=== PATIENT | female | born 1970 | race Caucasian/White ===

== ENCOUNTER 2021-06-10 07:00 | Outpatient (REF) | payer OTHER, SELFPAY ==
[2021-06-10 08:08] LABS: MANUAL DIFF FLAG NO
[2021-06-10 08:10] LABS: Basophils Percent Auto 0.4 % (0-2); Eosinophils Absolute Auto 0.2 X10*3/uL (0.0-0.4); Eosinophils Percent Auto 3.3 % (0-4); Hematocrit 44.7 % (37-47); Hemoglobin 15.3 g/dl (12.0-16.0); Imm Gran Abs Auto 0.03 X10*3/uL (0.00-0.03); Imm Gran Pct Auto 0.4 % (0.0-0.4); Lymphocytes Absolute Auto 1.9 X10*3/uL (1.2-4.9); Lymphocytes Percent Auto 25.2 % (20-40); Mean Corpuscular HGB Conc 34.2 g/dl (31.0-35.0); Mean Corpuscular Hemoglobin 34.4 pg (27.0-33.0); Mean Corpuscular Volume 100.4 fL (80-98); Mean Platelet Volume 10.4 fL (9.4-12.3); Monocytes Absolute Auto 0.6 X10*3/uL (0.1-1.2); Neutrophils Absolute Auto 4.6 X10*3/uL (2.0-8.3); Neutrophils Percent Auto 62.7 % (45-73); Platelet Count 190 X10*3/uL (160-400); Red Blood Count 4.45 X10*6/uL (4.20-5.50); Red Cell Distribution Width 13.8 % (11.0-16.0); White Blood Count 7.3 X10*3/uL (4.8-10.8)
[2021-06-10 08:36] LABS: Alanine Aminotransferase 25 U/L (0-31); Albumin Level 4.2 g/dL (3.5-5.0); Alkaline Phosphatase 62 U/L (39-117); Anion Gap 12 (12-20); Aspartate Amino Transferase 16 U/L (5-31); Bilirubin Total 0.3 mg/dL (0.0-1.0); Blood Urea Nitrogen 13 mg/dL (9-16); Carbon Dioxide 23 mmol/L (22-29); Chloride 107 mmol/L (96-108); Cholesterol 180 mg/dL; Estimated Glomerular Filt Rate > 60; Glucose Random 143 mg/dL (60-115); HDL Cholesterol 51 mg/dL; LDL Cholesterol Calculated 106 mg/dl; Potassium 4.1 mmol/L (3.3-5.1); Sodium 138 mmol/L (135-145); Total Protein 6.3 g/dL (6.5-8.0); Triglycerides 119 mg/dL
[2021-06-10 09:07] LABS: Folate 1.8 ng/mL (> or = 4.0); Vitamin B12 508 pg/mL (200-900)
[2021-06-10 09:33] LABS: Free T4 (Free Thyroxine) 0.79 ng/dL (0.71-1.85); Thyroid Stimulating Hormone 1.26 uIU/mL (0.32-4.0)
[2021-06-10 10:13] LABS: Appearance Urine HAZY; Color Urine YELLOW; Glucose Urine UA NEG (NEG); Leukocyte Esterase Urine NEG (NEG); Nitrite Urine NEG (NEG); Specific Gravity - Urine >= 1.030 (1.005-1.025); Urine Blood NEG (NEG); Urine Ketones NEG (NEG); Urine Protein NEG (NEG-TRACE)
[2021-06-10 11:11] LABS: Bacteria Urine TRACE /LPF; Calcium Oxalate Crystals Urine 1+ /LPF; Mucus Urine 1+ /LPF; RBC Urine 0 /HPF (0); Squamous Epithelial Cell Urine 2+ /LPF
== END 2021-06-10 07:01 | disposition home or self-care (01) ==
LOC: HO.LAB 07:00
PROVIDERS: PCP Internal Medicine; Visit Provider Internal Medicine
DX: I10 Essential (primary) hypertension (principal); E78.00 Pure hypercholesterolemia, unspecified
CPT/HCPCS: 36415; 80053; 80061; 81001; 82306; 82607; 82746; 84439; 84443; 85025

== ENCOUNTER 2021-09-12 16:28 | Outpatient (REF) | payer OTHER, SELFPAY ==
--- NOTE | ~2021-09-12 | MM_ITS ---
EXAMINATION: MM SCREENING DIGITAL BREAST TOMOSYNTHESIS, BILATERAL CLINICAL INFORMATION: Screening. Asymptomatic. The lifetime risk of breast cancer based on the Tyrer-Cuzick Model is 24%. COMPARISON: Mammography: 05/13/2019, 03/16/2015 TECHNIQUE: Digital breast tomosynthesis is performed in both the craniocaudal and mediolateral oblique views along with computer-aided detection (CAD). Synthesized 2D images are generated from the tomosynthesis. FINDINGS: The breasts are almost entirely fatty (ACR BI-RADS breast composition Category a). Background stromal markings are stable. There are no significant masses, abnormal calcifications, or other abnormalities. Parenchymal pattern is similar to prior studies. No developing density. There are scattered bilateral round, rim, predominantly dermal calcifications again present. No significant changes. MM/MM tomosynthesis screening BI IMPRESSION: No mammographic evidence of malignancy. ASSESSMENT: BI-RADS 2: Benign RECOMMENDATION: Routine annual mammography screening. This patient's information was entered into a reminder system with a target due date for their next mammogram.
== END 2021-09-12 16:29 | disposition home or self-care (01) ==
LOC: HO.MAMMO 16:28
PROVIDERS: Visit Provider Internal Medicine
DX: Z12.31 Encounter for screening mammogram for malignant neoplasm of breast (principal)
CPT/HCPCS: 77063; 77067

== ENCOUNTER → 2021-10-21 15:11 | Outpatient (BNVA) | payer OTHER, SELFPAY | PROVIDERS: PCP Internal Medicine; Referring Provider Internal Medicine; Visit Provider Physician Assistant ==

== ENCOUNTER 2022-01-15 07:17 | Day surgery (SDC) | payer OTHER, SELFPAY ==
[2022-01-09 12:00] VITALS: BMI 37.4
--- NOTE | 2022-01-15 06:40 | MHC.SHP ---
Pre-Procedural Eval Section A Date of Service: 01/15/22 Section B Chief Complaint: screening Relevant Family History (Specify if Yes): No Relevant Social History: Tobacco Use Present Medications: see Short Stay Collaborative assessment Medical History: Significant History (DDD (degenerative disc disease), lumbar Generalized anxiety disorder Hypertension Migraine Obesity Polycystic ovarian syndrome Sciatica, right side Tobacco abuse Type 2 diabetes mellitus with hyperglycemia) Allergies: Allergies Allergy/AdvReac Type Severity Reaction Status Date / Time lisinopril Allergy Intermediate Rash Verified 01/09/22 11:57 paroxetine [Paxil] AdvReac Intermediate weight gain Verified 01/09/22 11:25 Review of Systems Sugical H&P ROS: Negative: Constitution, Cardiovascular, Respiratory, Neurological, Psychiatric, Hem-Onc, Allergic/Immunologic, Gastrointestinal, Genitourinary, Musculoskeletal, Integumentary, Endocrine and Eyes/Ears/Nose/Throat Exam Surgical H&P Exam: Normal: HEENT, Normal: Heart, Normal: Lungs, Normal: Extremities, Normal: Abdomen, Normal: Skin and Normal: Neurological Plan Diagnosis/Plan: Unchanged I have reviewed the history and physical and performed a pertinent physical examination on my patient. No changes have occurred unless specified.
[2022-01-15 07:37] VITALS: BP 144/82; PULSE 78; RESP 18; TEMP 36.3; O2SAT 100
[2022-01-15 07:41] LABS: UPreg QC Valid YES; Urine Pregnancy NEGATIVE (NEGATIVE)
[2022-01-15 08:04] LABS: Glucose, Whole Blood 146 mg/dL (60-115)
--- NOTE | 2022-01-15 08:06 | HO.ANESPROP2 ---
[facility] Active Problems Active Problems: All Active Problems (Updated 01/09/22 @ 12:03 by Miranda Estrella RN) Deafness in right ear (Acute) Annual physical exam (Acute) Obesity (BMI 30-39.9) (Acute) Hypercholesterolemia (Acute) Breast cancer screening by mammogram (Acute) Colon cancer screening (Acute) Hemorrhoid (Acute) Stress incontinence (Acute) Sinus infection (Acute) Viral illness (Acute) Bronchitis (Acute) Obesity (Acute) Generalized anxiety disorder (Acute) Tobacco abuse (Acute) Type 2 diabetes mellitus with hyperglycemia (Acute) DDD (degenerative disc disease), lumbar (Acute) Hypertension (Acute) Past Medical History Medical History (Updated 01/09/22 @ 12:03 by Miranda Estrella RN) COVID-19 vaccine series completed DDD (degenerative disc disease), lumbar Depression Generalized anxiety disorder Hypertension Impaired hearing Migraine Obesity Polycystic ovarian syndrome Post-operative nausea and vomiting Sciatica, right side Sinus infection Tobacco abuse Type 2 diabetes mellitus with hyperglycemia Family History Family History Paternal Grandfather Myocardial infarct Paternal Uncle Prostate cancer Alcohol abuse Paternal Aunt Skin cancer Maternal Aunt Breast cancer Family history of problems with anesthesia: No Surgical History Surgical History (Updated 01/09/22 @ 11:57 by Miranda Estrella RN) H/O umbilical hernia repair History of back surgery History of ear surgery Hx of laparoscopic gastric banding History of Problems with Anesthesia: No Social History Social History Housing: House Are you a primary certified caregiver to a significant other at home: No Do you presently have visiting nurse or other home services: No Alcohol intake: current Alcohol intake frequency: holidays/special occasions only Patient Tobacco Use Status: Current everyday Tobacco user Tobacco use type: Cigarette Cigarette Packs Per Day: 1 Cigarettes Per Day: 20.0 Years Smoked: 22 e-Cigarette/Vaping Use: Never Used Use of substances other than those prescribed or required for medical reasons: Yes Substance Use Frequency: Occasionally Have you been hit, kicked, punched, or otherwise hurt by someone within the past year? 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) Current occupational status: disabled Meds Allergies Allergy/AdvReac Type Severity Reaction Status Date / Time lisinopril Allergy Intermediate Rash Verified 01/09/22 11:57 paroxetine [Paxil] AdvReac Intermediate weight gain Verified 01/09/22 11:25 Home Medications Medication Instructions Recorded Confirmed Last Taken Type citalopram 10 mg tablet 2.5 mg PO DAILY 01/09/22 01/15/22 01/14/22 07:30 History Exam Exam Date and Time: January 15, 2022 0806 Height,Weight and Vital Signs: Height 5 ft 5 in Weight 102.058 kg Last Vital Signs Temp 97.3 F 01/15/22 07:37 Pulse 78 01/15/22 07:37 Resp 18 01/15/22 07:37 BP 144/82 H 01/15/22 07:37 Pulse Ox 100 01/15/22 07:37 Pertinent Lab Results Pertinent Lab Results: Laboratory Tests 01/15/22 01/15/22 07:30 08:00 POC Glucose 146 H Urine Test NEGATIVE Airway Mallampati Class: II (Caps top front multiple) TM Dist: >3cm Neck ROM: Full Heart: rrr Lungs: cta Assessment and Plan Assessment Anesthesia Assessment: Anesthesia Plan Discussed and Chart Reviewed Final Anesthetic Review Family History of Problems with Anesthesia: No History of Problems with Anesthesia: No NPO: Yes ASA Class: III Final Preanesthetic Review: No Changes in Pt Med Stat, Meds/Allgs Chart Reviewed and Consent Obtained/Reviewed Patient Risk: Intermediate Procedure Risk: Intermediate Anesthetic Plan Anesthetic Plan: MAC: Disposition: Standard PACU
--- NOTE | 2022-01-15 08:18 | PM.OP ---
Brief Operative Note Date of Service: 01/15/22 Pre-op diagnosis: Screening colon Post-op diagnosis: same Procedure: see op note Surgeon: Delbert Currie MD Anesthesia: MAC Was an Chief Controller Tower used for this Procedure?: No Estimated blood loss (mL): 0 Condition: stable Disposition: PACU
--- NOTE | 2022-01-15 08:19 | P.OP_ITS ---
Operative Note Operative Note Date of Service: 01/15/22 Narrative: Operative Information Procedure Description: Colonoscopy Indication: screening colonoscopy Anesthesia: MAC COLONOSCOPY Instrument: Olympus variable stiffness ADULT scope 190L Colonoscopy Monitoring: Vital signs and clinical assessment, continuous EKG monitoring, Pulse oximetry, Carbon Dioxide monitoring and blood pressure monitoring were done throughout the procedure. Colon withdrawal time was 16 minutes. Procedure: The patient was placed in the left lateral decubitis position and pre-procedure medications were administered. After a digital rectal examination of the ano-rectum, the video colonoscope was inserted into the rectum and advanced through the colon to the cecum/TI. The colonoscope was slowly withdrawn in a retrograde panoramic fashion and the colon mucosa was carefully examined including a retroflexed view of the rectum. Findings and interventions are described below. Procedure Difficulty: easy Findings: Terminal Ileum-normal Right sided retroflexion normal Cecum:normal Ascending Colon: normal Transverse Colon - 10 mm sessile polyp removed with cold snare Descending Colon: 10 mm sessile polyp removed with cold snare Sigmoid Colon: normal Rectum: Retroflexion with small internal hemorrhoids, grade I , in mid rectum large semi pedunculated polyp 14-18 mm in size removed with hot snare and then 2 clips applied to close defect, cautery also applied to edge of the defect. 2 other smaller polyps 6-8 mm removed with cold snare Anorectum - normal Colon preparation: [place] Bowel Preparation Scale Right colon; 2 Transverse colon: 3 Left colon; 3 (0 = Unprepared colon segment with mucosa not seen due to solid stool that cannot be cleared. 1 = Portion of mucosa of the colon segment seen, but other areas of the colon segment not well seen due to staining, residual stool and/or opaque liquid. 2 = Minor amount of residual staining, small fragments of stool and/or opaque liquid, but mucosa of colon segment seen well. 3 = Entire mucosa of colon segment seen well with no residual staining, small fragments of stool or opaque liquid) Impression and Post Procedure Diagnosis: polyps internal hemorrhoids Plan: High fiber diet leaflet Avoid straining at stool, epsom salts and sitz bath, anusol supps or cream Repeat Colonoscopy in 1 year or earlier if clinically indicated Above findings were reviewed with the patient and relevant handouts were provided if indicated.
[2022-01-15 09:00] VITALS: BP 113/70; PULSE 68; RESP 16; TEMP 36.3; O2SAT 96
[2022-01-15 09:15] VITALS: BP 118/73; PULSE 69; RESP 18; O2SAT 100
[2022-01-15 09:30] VITALS: BP 137/68; PULSE 60; RESP 18; O2SAT 98
== END 2022-01-15 10:05 | disposition home or self-care (01) ==
PROVIDERS: Anesthesiology; PCP Internal Medicine; Visit Provider Internal Medicine Gastroenterology
PROC: 0DJD8ZZ Inspection of Lower Intestinal Tract, Via Natural or Artificial Opening Endoscopic (ICD-10-PCS; CPT 45378; principal; 2022-01-15 08:30)
DX: Z12.11 Encounter for screening for malignant neoplasm of colon (principal); D12.3 Benign neoplasm of transverse colon; D12.4 Benign neoplasm of descending colon; D12.8 Benign neoplasm of rectum; K64.0 First degree hemorrhoids; I10 Essential (primary) hypertension; E28.2 Polycystic ovarian syndrome; E11.65 Type 2 diabetes mellitus with hyperglycemia; F41.1 Generalized anxiety disorder; G43.909 Migraine, unspecified, not intractable, without status migrainosus; H91.91 Unspecified hearing loss, right ear; Z79.899 Other long term (current) drug therapy; Z88.8 Allergy status to other drugs, medicaments and biological substances; Z98.84 Bariatric surgery status; F17.210 Nicotine dependence, cigarettes, uncomplicated
CPT/HCPCS: 45385; 81025; 82947; 88305

== ENCOUNTER 2022-04-23 13:26 | Outpatient (REF) | payer OTHER, SELFPAY ==
[2022-04-23 14:12] LABS: Influenza A PCR NEGATIVE (Negative); Influenza B PCR NEGATIVE (Negative); Resp Syncy Virus RNA Qual PCR NEGATIVE (Negative); SARS COV2 PCR INHOUSE NEGATIVE (Negative)
== END 2022-04-23 13:27 | disposition home or self-care (01) ==
LOC: HO.LNP 13:26
PROVIDERS: Visit Provider Physician Assistant
DX: Z20.822 Contact with and (suspected) exposure to COVID-19 (principal); J40 Bronchitis, not specified as acute or chronic
CPT/HCPCS: 0241U

== ENCOUNTER 2022-08-30 11:29 | Outpatient (REF) | payer OTHER, SELFPAY ==
[2022-08-30 12:27] LABS: Influenza A PCR POSITIVE (Negative); Influenza B PCR NEGATIVE (Negative); Resp Syncy Virus RNA Qual PCR NEGATIVE (Negative); SARS COV2 PCR INHOUSE NEGATIVE (Negative)
== END 2022-08-30 11:30 | disposition home or self-care (01) ==
LOC: HO.LNP 11:29
PROVIDERS: Visit Provider Nurse Practitioner Family
DX: R68.89 Other general symptoms and signs (principal); Z20.822 Contact with and (suspected) exposure to COVID-19
CPT/HCPCS: 0241U

== ENCOUNTER 2022-10-09 12:33 | Day surgery (SDC) | payer OTHER, SELFPAY ==
[2022-10-09 13:02] VITALS: BMI 38.6
--- NOTE | 2022-10-09 14:06 | MHC.SHP ---
Pre-Procedural Eval Section A Date of Service: 10/09/22 The patient is an INPATIENT: No Changes since office visit: No Cold of Flu in the past 2 weeks, No New Medical Problems, No Changes in Medication and No Patient answered all questions The History & Physical has been completed within 30 days and I have reviewed it.: Yes Section B Chief Complaint: Trigger thumb, left thumb Allergies: Allergies Allergy/AdvReac Type Severity Reaction Status Date / Time lisinopril Allergy Intermediate Rash Verified 08/30/22 09:45 paroxetine [Paxil] AdvReac Intermediate weight gain Verified 08/30/22 09:45 Plan I have reviewed the history and physical and performed a pertinent physical examination on my patient. No changes have occurred unless specified. Time Spent With Patient Time: Total time managing care of this patient today ____ minutes.
--- NOTE | 2022-10-09 14:06 | W.PM.OPN ---
Operative Note Operative Note Date of Service: 10/09/22 Narrative: Operative Note Preop diagnosis: 1. left thumb Trigger finger Postop diagnosis: 1. left thumb Trigger finger Procedure: 1. left thumb A1 nick release Surgeon: Tonya Gonzalez MD Anesthesia: local block using 1% lidocaine with epinephrine Findings: No locking or catching after A1 nick release EBL: Less than 5 mL Tourniquet time: None Specimens: None Complications: None Disposition: Brought to recovery room in stable condition Plan: Follow-up for 10-14 days for wound check and suture removal Indications: The patient is 52 years old, with a left thumb trigger finger that has been unresponsive to nonoperative management. The risks and benefits of operative treatment including but not limited to risk of damage to blood vessels, nerves, tendons, infection, persistent pain, persistent symptoms, recurrence or possible need for additional surgery were discussed with the patient and the patient wishes to proceed with surgery. Procedure: Once consent was obtained a local block was performed in the preop area using a combination of 1% lidocaine with epinephrine. The patient was then brought back to the operating suite and placed on the operative table in supine position. The left upper extremity was prepped and draped in a standard surgical fashion. Once assured that we had a good block, a 1.5 cm oblique incision was made centered over the A1 nick of the left thumb . The incision was made through the skin to the subcutaneous tissues using a #15 blade. Careful dissection was made down to the level of the A1 nick using tenotomy scissors, with care being taken to protect the nearby neurovascular structures. A longitudinal incision was made in the A1 nick 1st using a #15 blade, then using tenotomy scissors under direct visualization. The A1 nick was noted to be thickened. Following our A1 nick release, we no longer saw any locking or catching of the digit with flexion and extension. Once satisfied with our A1 nick release the wound was copiously irrigated with normal saline and hemostasis was obtained with a brief period of local pressure. The skin edges were reapproximated with some 5.0 nylon suture material and a sterile dressing was applied. The patient appears to have tolerated the procedure well and with no complications. All digits were well vascularized at the conclusion of the case.
[2022-10-09 15:04] VITALS: BP 118/71; PULSE 74; RESP 16; TEMP 36.8; O2SAT 99
== END 2022-10-09 15:25 | disposition home or self-care (01) ==
PROVIDERS: PCP Internal Medicine; Visit Provider Orthopaedic Surgery
PROC: (CPT 26055; principal; 2022-10-09 14:30)
DX: M65.312 Trigger thumb, left thumb (principal); M51.36 Other intervertebral disc degeneration, lumbar region; I10 Essential (primary) hypertension; E11.65 Type 2 diabetes mellitus with hyperglycemia; H91.91 Unspecified hearing loss, right ear; F17.210 Nicotine dependence, cigarettes, uncomplicated; Z88.8 Allergy status to other drugs, medicaments and biological substances
CPT/HCPCS: 26055; J0171

== ENCOUNTER → 2022-10-23 14:58 | Outpatient (BNVA) | payer OTHER, SELFPAY | PROVIDERS: PCP Internal Medicine; Visit Provider Physician Assistant | DX: Z13.89 Encounter for screening for other disorder (principal) ==

== ENCOUNTER 2022-11-25 11:28 | Outpatient (REF) | payer OTHER, SELFPAY ==
[2022-11-25 12:40] LABS: Influenza A PCR NEGATIVE (Negative); Influenza B PCR NEGATIVE (Negative); Resp Syncy Virus RNA Qual PCR NEGATIVE (Negative); SARS COV2 PCR INHOUSE POSITIVE (Negative)
== END 2022-11-25 11:29 | disposition home or self-care (01) ==
LOC: HO.LNP 11:28
PROVIDERS: Visit Provider Physician Assistant
DX: Z20.822 Contact with and (suspected) exposure to COVID-19 (principal)
CPT/HCPCS: 0241U

== ENCOUNTER → 2022-12-15 14:02 | Outpatient (BNVA) | payer OTHER, SELFPAY | PROVIDERS: PCP Internal Medicine; Visit Provider Physician Assistant | DX: Z13.89 Encounter for screening for other disorder (principal) ==

== ENCOUNTER 2023-01-08 14:19 | Outpatient (REF) | payer OTHER, SELFPAY ==
--- NOTE | ~2023-01-08 | MM_ITS ---
EXAMINATION: MM SCREENING DIGITAL BREAST TOMOSYNTHESIS, BILATERAL CLINICAL INFORMATION: Screening. Asymptomatic. The lifetime risk of breast cancer based on the Tyrer-Cuzick Model is 26.0%. Additional annual screening with breast MRI may be of benefit in women with a score of 20% or greater. COMPARISON: Mammography: September 12, 2021 and studies dating back to October 01, 2012 TECHNIQUE: Digital breast tomosynthesis is performed in both the craniocaudal and mediolateral oblique views along with computer-aided detection (CAD). Synthesized 2D images are generated from the tomosynthesis. FINDINGS: There are scattered areas of fibroglandular density (ACR BI-RADS breast composition Category b). There are no significant masses, abnormal calcifications, or other abnormalities. MM/MM tomosynthesis screening BI IMPRESSION: No significant changes ASSESSMENT: BI-RADS 1: Negative RECOMMENDATION: Routine annual mammography screening. Consider breast MRI. This patient's information was entered into a reminder system with a target due date for their next mammogram.
== END 2023-01-08 14:20 | disposition home or self-care (01) ==
LOC: HO.MAMMO 14:19
PROVIDERS: PCP Internal Medicine; Visit Provider Internal Medicine
DX: Z12.31 Encounter for screening mammogram for malignant neoplasm of breast (principal)
CPT/HCPCS: 77063; 77067

== ENCOUNTER 2023-01-12 11:06 | Emergency (ER) | payer OTHER, SELFPAY ==
--- NOTE | ~2023-01-12 | CT_ITS ---
EXAMINATION: CT ABDOMEN AND PELVIS WITHOUT CONTRAST CLINICAL INFORMATION: Abdominal pain and constipation COMPARISON: Previous CT of the abdomen and pelvis most recent January 2018 TECHNIQUE: Multidetector volumetric imaging was performed from the superior aspect of the liver through the pubic symphysis. Sagittal and coronal reformatted images were obtained on the technologist's workstation. This CT examination was performed using dose optimization techniques as appropriate, variously including the following: *Automated exposure control *Adjustment of mA and/or kV according to patient size (this includes techniques or standardized protocols for targeted exams where dose is matched to indication/reason for exam; i.e. extremities or head) *Use of iterative reconstruction technique DLP: 818 mGy-cm FINDINGS: LUNG BASES: The visualized lung bases are unremarkable. LIVER, GALLBLADDER, AND BILIARY TREE: The liver is normal in size, shape, and attenuation. No focal hepatic lesion or biliary ductal dilatation is present. The gallbladder is unremarkable with no evidence of radiopaque gallstones, gallbladder wall thickening, or obvious pericholecystic inflammatory changes. PANCREAS: Unremarkable. SPLEEN: Unremarkable. ADRENAL GLANDS: Unremarkable. KIDNEYS AND URETERS: The kidneys are normal in size, shape, and attenuation. Small 1 mm nonobstructing stone in the midpole of the right kidney. BLADDER: Unremarkable. GASTROINTESTINAL TRACT: The small and large bowel are unremarkable. The appendix is unremarkable. There is a gastric lap band. There is fat stranding seen surrounding the gastric lap band catheter just deep to the midline anterior abdominal wall. This is a new finding from 2018 exam. No fluid collection. ABDOMINAL WALL: No significant hernia is appreciated. LYMPH NODES: Normal. VASCULAR: Unremarkable. PELVIC VISCERA: Unremarkable. OSSEOUS STRUCTURES: Degenerative changes of the spine and hip joints. CT/CT abdomen pelvis wo IV con IMPRESSION: Small nonobstructing right renal stone. New fat stranding surrounding the gastric lap band catheter just deep to the mid anterior abdominal wall compared to January 2018. No fluid collection.. Fleischner guidelines were followed.
--- NOTE | ~2023-01-12 | US_ITS ---
EXAMINATION: US ABDOMEN LIMITED CLINICAL INFORMATION: Right upper quadrant pain.. COMPARISON: CT abdomen pelvis from the same date TECHNIQUE: Real-time imaging of the right upper quadrant abdominal viscera. FINDINGS: PANCREAS: Normal. LIVER: Echogenicity of the liver is minimally increased, potentially due to mild steatosis. The liver is normal in size. The liver contour is normal. No focal hepatic lesion. There is no intrahepatic biliary duct dilatation seen. GALLBLADDER: Normal. The gallbladder is physiologically distended without evidence of stones, sludge, polyps, wall thickening or pericholecystic fluid. COMMON BILE DUCT: Normal in caliber measuring 0.6 cm in diameter. RIGHT KIDNEY: Normal. No hydronephrosis. No renal calculi or focal parenchymal lesions. The kidney measures 12 cm in maximum dimension. FREE FLUID: None. US/US abdomen limited IMPRESSION: Questionable mild hepatic steatosis. No acute right upper quadrant abnormalities.
[2023-01-12 12:15] VITALS: BP 144/96; PULSE 88; RESP 18; TEMP 36.1; O2SAT 98; BMI 39.6
--- NOTE | 2023-01-12 12:15 | ED.ABDPAIN ---
HPI - Abdominal Pain General Chief Complaint: Abdominal Pain <ADWOA Gallagher Last Filed: 01/12/23 12:19> Stated Complaint: abd pain quest bowel obstruction <ADWOA Gallagher Last Filed: 01/12/23 12:19> Time Seen by Provider: 01/12/23 17:40 <ADWOA Gallagher Last Filed: 01/12/23 12:19> Source: patient <ADWOA Mcelroy Last Filed: 01/12/23 22:17> Mode of arrival: ambulatory <ADWOA Mcelroy Last Filed: 01/12/23 22:17> Limitations: no limitations <ADWOA Mcelroy Last Filed: 01/12/23 22:17> History of Present Illness HPI narrative: This is a 52-year-old female history of anxiety, type 2 diabetes, degenerative disc disease, hypertension presenting to the clinic for evaluation of severe abdominal pain diffuse throughout but worse to the right upper quadrant, patient reports she had an episode of constipation for about a week, to tells me that she feels like her abdomen is distended and has been painful ever since, this feels like the time she had a bowel obstruction. Reports pain is stabbing intermittent and severe in nature. ? Patient reports some associated nausea.? Patient denies changes in urination, bowel habits, chest pain, shortness of breath, vomiting, hematochezia, hematemesis, fevers, chills <ADWOA Mcelroy Last Filed: 01/12/23 22:17> Related Data Home Medications: Previous Rx's Medication Instructions Recorded folic acid 1 mg tablet 1 mg PO DAILY 90 days #90 tabs 06/10/21 tramadol 50 mg tablet 50 mg PO BID PRN pain 30 days #60 06/13/22 tabs losartan 50 mg tablet 50 mg PO DAILY #90 caps 06/30/22 albuterol sulfate 90 mcg/actuation 2 puff inhalation Q6H PRN 11/25/22 aerosol inhaler shortness of breath or wheezing #6.7 grams bisacodyl 5 mg tablet,delayed 10 mg PO ONCE colonoscopy prep 1 12/15/22 release (Dulcolax (bisacodyl)) day #2 tabs hydrocortisone 2.5 % topical cream 1 appl DC BEDTIME PRN hemorrhoids 12/15/22 with perineal applicator #30 grams (Proctosol HC) methylcellulose (laxative) 500 mg 500 mg PO TID #90 tabs 12/15/22 tablet (Citrucel) cefuroxime axetil 250 mg tablet 250 mg PO BID 7 days #14 tabs 01/12/23 morphine 15 mg immediate release 15 mg PO Q6H PRN pain 5 days #10 01/12/23 tablet tabs <AWDOA Gallagher - Last Filed: 01/12/23 12:19> Allergies/Adverse Reactions: Allergies Allergy/AdvReac Type Severity Reaction Status Date / Time lisinopril Allergy Intermediate Rash Verified 01/12/23 12:18 paroxetine [Paxil] AdvReac Intermediate weight gain Verified 01/12/23 12:18 <ADWOA Gallagher Last Filed: 01/12/23 12:19> Review of Systems Review of Systems Constitutional : No Weight loss, No Fever, No Chills, No Fatigue, No Malaise ENT/Mouth : No sore throat, No Rhinorrhea Eyes: No Eye Pain, No Swelling, No Redness Cardiovascular : No Chest Pain, No SOB, No Dyspnea on Exertion, No Orthopnea, No Edema, No Palpitations Respiratory : No Cough, No Sputum, No Wheezing Gastrointestinal : + Nausea, No Vomiting, No Diarrhea, No Constipation, + abdominal Pain, No Hematochezia, No Melena Genitourinary : No Dysuria, No Urinary Frequency, No Hematuria, Musculoskeletal : No joint pain, No Myalgias, No Joint Swelling Skin : No Skin Lesions, No rash Neuro : No Weakness, No Numbness, No Dizziness, No Headache Psych : No Anxiety/Panic, No Depression All other systems reviewed and are negative <ADWOA Mcelroy Last Filed: 01/12/23 22:17> Yes all other systems are reviewed and are negative <ADWOA Mcelroy Last Filed: 01/12/23 22:17> [facility] Past Medical History Attestation statement: The following information was validated with the patient. <ADWOA Mcelroy Last Filed: 01/12/23 22:17> Source: old records reviewed and nursing notes reviewed <ADWOA Mcelroy - Last Filed: 01/12/23 22:17> Medical History: Medical History Annual physical exam Bronchitis Colon cancer screening COVID-19 vaccine series completed DDD (degenerative disc disease), lumbar Deafness in right ear Depression Flu-like symptoms Generalized anxiety disorder Hemorrhoid Hypertension Impaired hearing Migraine Polycystic ovarian syndrome Post-operative nausea and vomiting Sciatica, right side Sinus infection Sinus infection Tobacco abuse Type 2 diabetes mellitus with hyperglycemia Viral illness <ADWOA Gallagher - Last Filed: 01/12/23 12:19> Surgical History: Surgical History H/O umbilical hernia repair History of back surgery History of ear surgery Hx of colonoscopy Hx of laparoscopic gastric banding <ADWOA Gallagher - Last Filed: 01/12/23 12:19> Family History Family History: Family History Paternal Grandfather Myocardial infarct Paternal Uncle Prostate cancer Alcohol abuse Paternal Aunt Skin cancer Maternal Aunt Breast cancer <ADWOA Gallagher - Last Filed: 01/12/23 12:19> Social History Social History: Social History Housing: House Are you a primary furnace caretaker to a significant other at home: No Do you presently have visiting nurse or other home services: No Alcohol intake: current Alcohol intake frequency: a few times a month Patient Tobacco Use Status: Current everyday Tobacco user Tobacco use type: Cigarette Cigarette Packs Per Day: 1 Cigarettes Per Day: 20.0 Years Smoked: 22 Smoked in Last 30 Days: Yes e-Cigarette/Vaping Use: Never Used Use of substances other than those prescribed or required for medical reasons: No Advance Directives: No Advance Directives Information Provided: No Patient : No Current occupational status: employed 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 Cognitive needs: No Hearing needs: No Vision needs: Yes <ADWOA Gallagher - Last Filed: 01/12/23 12:19> Physical Exam ED Vital Signs: Vital Signs - 24 hr 01/12/23 12:15 01/12/23 17:38 01/12/23 19:56 Temperature 97.0 F 97.9 F Pulse Rate 88 83 78 Respiratory Rate 18 18 18 Blood Pressure 144/96 H 126/59 L 136/88 Pulse Oximetry 98 98 96 Oxygen Delivery Method Room Air Room Air Room Air 01/12/23 20:52 Temperature 97.5 F Pulse Rate 75 Respiratory Rate 17 Blood Pressure 116/61 Pulse Oximetry 96 Oxygen Delivery Method Room Air BMI result Body Mass Index 39.6 <ADWOA Gallagher - Last Filed: 01/12/23 12:19> Vital Signs - 24 hr 01/12/23 12:15 01/12/23 17:38 01/12/23 19:56 Temperature 97.0 F 97.9 F Pulse Rate 88 83 78 Respiratory Rate 18 18 18 Blood Pressure 144/96 H 126/59 L 136/88 Pulse Oximetry 98 98 96 Oxygen Delivery Method Room Air Room Air Room Air 01/12/23 20:52 Temperature 97.5 F Pulse Rate 75 Respiratory Rate 17 Blood Pressure 116/61 Pulse Oximetry 96 Oxygen Delivery Method Room Air BMI result Body Mass Index 39.6 vss <ADWOA Mcelroy - Last Filed: 01/12/23 22:17> Appearance: Alert.? Oriented X3.? No acute distress.? Head: Normocephalic, atraumatic, no step-offs or deformities Eyes: Pupils equal, round and reactive to light.? CVS: Normal heart rate and rhythm.? Pulses normal.? Respiratory: No respiratory distress.? Breath sounds normal.? Abdomen: Soft and diffusely tender, worse on the right upper quadrant, positive Molina sign.. Skin: Skin warm and dry.? Normal skin color.? Normal skin turgor.? Extremities: No lower extremity edema.? No calf ttp. 5/5 strength to bilateral upper and lower extremities Neuro: Oriented X 3.? No motor deficit.? No sensory deficit. CN 2-12 intact <ADWOA Mcelroy - Last Filed: 01/12/23 22:17> Course Course Course Narrative: RME: 52yo F w/PMHx PCOS, anxiety, HTN, DM, sent in from for possible SBO. Patient reports worsening abd pain, bloating/distention, nausea and constipation x6 days. Last meaningful BM on Thursday, admits did have BM this morning but small. Denies fever/chills Labs, UA, CT AP ordered Full HPI, ROS and PE to be performed by primary ED provider. <ADWOA Gallagher - Last Filed: 01/12/23 12:19> Reevaluation(s) Reevaluation #1: CBC appears to be within normal limits. Chemistry with slightly elevated potassium 5.4 will give Lokelma. Lipase within normal limits. Normal transaminases. Coags unremarkable. CT of the abdomen pelvis with small nonobstructing right renal stone, new fat stranding surrounding the gastric lap band catheter just deep to the mid anterior abdominal wall. No fluid collection. Reaching out to Dr. Cnuningham for input. <ADWOA Mcelroy - Last Filed: 01/12/23 22:17> Time: 18:28 <ADWOA Mcelroy - Last Filed: 01/12/23 22:17> Reevaluation #2: I did speakto Dr. Cunningham who tells me no acute need for emergent surgical intervention at this time the question is whether not she wants her band taken out or not, +/- sleeve . Keep band, she should reach out to [facility]. If she wants it taken out she can do outpatient. <ADWOA Mcelroy - Last Filed: 01/12/23 22:17> Time: 20:06 <ADWOA Mcelroy - Last Filed: 01/12/23 22:17> Reevaluation #3: I did speak to bariatric PA who recommends patient be on liquids/ protein shake. Call office in the AM to schedule an apt to have it removed. Patient okay with this plan. Pain well controlled with morphine patient feeling better alert oriented x4 vital signs stable, will discharge home on Ceftin for UTI. Ultrasound of right upper quadrant with questionable mild hepatic steatosis no acute right upper quadrant abnormalities. Educated patient on diagnosis and treatment plan, answered all question, patient verbalizes understanding. At this time patient will be discharged home, advised to return with new or worsening symptoms. Educated on worrisome signs and symptoms and when to return. At this time I feel comfortable discharge home. <ADWOA Mcelroy - Last Filed: 01/12/23 22:17> Additional Reevaluation(s): Patient feeling much better at time of discharge and has a safe ride home. <ADWOA Mcelroy - Last Filed: 01/12/23 22:17> Medical Decision Making Medical Decision Making [facility] Narrative: 1800 This is a 52-year-old female presenting for evaluation of abdominal pain diffuse in nature worse on the right upper quadrant, severe, intermittent. Some associated nausea. This been going on for about a week worsening. Physical exam positive tenderness to palpation to right upper quadrant, and diffusely tender abdomen however worse in the right upper quadrant with a positive Molina sign. Patient uncomfortable appearing. Concerns for possible cholecystitis versus cholelithiasis. Unlikely cholangitis or choledocholithiasis, no signs of acute abdomen, acute abdomen. Unlikely pancreatitis, diverticulitis. Other differentials include kidney stone, UTI. Plan labs, imaging, urine. <ADWOA Mcelroy - Last Filed: 01/12/23 22:17> Differential Diagnosis Differential Diagnoses: The differential diagnosis associated with the presentation includes <ADWOA Mcelroy - Last Filed: 01/12/23 22:17> Concerns for possible cholecystitis versus cholelithiasis. Unlikely cholangitis or choledocholithiasis, no signs of acute abdomen, acute abdomen. Unlikely pancreatitis, diverticulitis. Other differentials include kidney stone, UTI. <ADWOA Mcelroy - Last Filed: 01/12/23 22:17> Admission/Observation Consideration of admission/observation: Escalation of care including admission/observation considered <ADWOA Mcelroy Last Filed: 01/12/23 22:17> Lab Data MDM Lab Attestation statement: I reviewed the patient's lab results. <ADWOA Mcelroy - Last Filed: 01/12/23 22:17> Result Diagrams: 01/12/23 16:35 01/12/23 16:35 <ADWOA Gallagher - Last Filed: 01/12/23 12:19> Labs: Lab Results 01/12/23 01/12/23 01/12/23 Range/Units 16:35 16:35 16:35 WBC 9.3 (4.8-10.8) X10*3/uL RBC 4.98 (4.20-5.50) X10*6/uL Hgb 15.1 (12.0-16.0) g/dl Hct 45.5 (37.0-47.0) % MCV 91.4 (80.0-98.0) fL MCH 30.3 (27.0-33.0) pg MCHC 33.2 (31.0-35.0) g/dl RDW 13.6 (11.0-16.0) % Plt Count TNP MPV 10.8 (9.4-12.3) fL Immature Gran % (Auto) 0.3 (0.0-0.4) % Neut % (Auto) 57.7 (45-73) % Lymph % (Auto) 32.5 (20-40) % [place] % (Auto) 7.5 (2-11) % Eos % (Auto) 1.6 (0-4) % Baso % (Auto) 0.4 (0-2) % Lymph # (Auto) 3.0 (1.2-4.9) X10*3/uL [place] # (Auto) 0.7 (0.1-1.2) X10*3/uL Eos # (Auto) 0.2 (0.0-0.4) X10*3/uL Baso # (Auto) 0.0 (0.0-0.2) X10*3/uL Abs Immat Gran (auto) 0.03 (0.00-0.03) X10*3/uL Absolute Neuts (auto) 5.4 (2.0-8.3) x10*3/uL Absolute Nucleated RBC 0.000 (0.0-0.012) X10*3/uL Nucleated RBC % (auto) 0.0 (0.0-0.2) /100WBC Smear Tech's Comments VERIFIED PT 10.4 (10.0-13.1) SEC INR 0.9 (0.9-1.1) Sodium 141 (135-145) mmol/L Potassium 5.4 H D (3.3-5.1) mmol/L Chloride 105 (96-108) mmol/L Carbon Dioxide 25 (22-29) mmol/L Anion Gap 16 (12-20) BUN 9 (9-16) mg/dL Creatinine 0.77 (0.5-1.4) mg/dL Estim Creat Clear Calc 106.8 Estimated GFR > 60 Random Glucose 134 H (60-115) mg/dL Lactic Acid (0.5-2.0) mmol/L Calcium 9.9 D (8.4-10.2) mg/dL Magnesium 2.0 (1.6-2.6) mg/dL Total Bilirubin 0.7 (0.0-1.0) mg/dL Direct Bilirubin 0.1 (0.0-0.5) mg/dL AST 24 (5-31) U/L ALT 24 (0-31) U/L Alkaline Phosphatase 91 (39-117) U/L B-Natriuretic Peptide (<100) pg/mL Total Protein 7.5 (6.5-8.0) g/dL Albumin 4.6 (3.5-5.0) g/dL Lipase 13 (8-78) U/L Urine Color Urine Appearance Urine pH (5.0-9.0) Ur Specific [place] (1.005-1.025) Urine Protein (Neg-Trace) mg/dL Urine Glucose (UA) (Negative) mg/dL Urine Ketones (Negative) mg/dL Urine Blood (Negative) Urine Nitrite (Negative) Ur Leukocyte Esterase (Negative) Urine RBC (0-2) /HPF Urine WBC (0-5) /HPF Ur Squamous Epith Cells (0-2) /HPF Urine Bacteria (None Seen) Hyaline Casts (0-2) /LPF 01/12/23 01/12/23 01/12/23 Range/Units 17:58 19:09 20:34 WBC (4.8-10.8) X10*3/uL RBC (4.20-5.50) X10*6/uL Hgb (12.0-16.0) g/dl Hct (37.0-47.0) % MCV (80.0-98.0) fL MCH (27.0-33.0) pg MCHC (31.0-35.0) g/dl RDW (11.0-16.0) % Plt Count MPV (9.4-12.3) fL Immature Gran % (Auto) (0.0-0.4) % Neut % (Auto) (45-73) % Lymph % (Auto) (20-40) % [place] % (Auto) (2-11) % Eos % (Auto) (0-4) % Baso % (Auto) (0-2) % Lymph # (Auto) (1.2-4.9) X10*3/uL [place] # (Auto) (0.1-1.2) X10*3/uL Eos # (Auto) (0.0-0.4) X10*3/uL Baso # (Auto) (0.0-0.2) X10*3/uL Abs Immat Gran (auto) (0.00-0.03) X10*3/uL Absolute Neuts (auto) (2.0-8.3) x10*3/uL Absolute Nucleated RBC (0.0-0.012) X10*3/uL Nucleated RBC % (auto) (0.0-0.2) /100WBC Smear Tech's Comments PT (10.0-13.1) SEC INR (0.9-1.1) Sodium (135-145) mmol/L Potassium (3.3-5.1) mmol/L Chloride (96-108) mmol/L Carbon Dioxide (22-29) mmol/L Anion Gap (12-20) BUN (9-16) mg/dL Creatinine (0.5-1.4) mg/dL Estim Creat Clear Calc Estimated GFR Random Glucose (60-115) mg/dL Lactic Acid 1.4 (0.5-2.0) mmol/L Calcium (8.4-10.2) mg/dL Magnesium (1.6-2.6) mg/dL Total Bilirubin (0.0-1.0) mg/dL Direct Bilirubin (0.0-0.5) mg/dL AST (5-31) U/L ALT (0-31) U/L Alkaline Phosphatase (39-117) U/L B-Natriuretic Peptide 12 (<100) pg/mL Total Protein (6.5-8.0) g/dL Albumin (3.5-5.0) g/dL Lipase (8-78) U/L Urine Color Dark Yellow Urine Appearance Cloudy Urine pH 5.5 (5.0-9.0) Ur Specific [place] 1.025 (1.005-1.025) Urine Protein Trace (Neg-Trace) mg/dL Urine Glucose (UA) Negative (Negative) mg/dL Urine Ketones Negative (Negative) mg/dL Urine Blood Trace H (Negative) Urine Nitrite Positive H (Negative) Ur Leukocyte Esterase Trace H (Negative) Urine RBC 0-2 (0-2) /HPF Urine WBC 11-20 H (0-5) /HPF Ur Squamous Epith Cells 0-2 (0-2) /HPF Urine Bacteria 4+ (None Seen) Hyaline Casts 0-2 (0-2) /LPF <ADWOA Gallagher - Last Filed: 01/12/23 12:19> Lab Results 01/12/23 01/12/23 01/12/23 Range/Units 16:35 16:35 16:35 WBC 9.3 (4.8-10.8) X10*3/uL RBC 4.98 (4.20-5.50) X10*6/uL Hgb 15.1 (12.0-16.0) g/dl Hct 45.5 (37.0-47.0) % MCV 91.4 (80.0-98.0) fL MCH 30.3 (27.0-33.0) pg MCHC 33.2 (31.0-35.0) g/dl RDW 13.6 (11.0-16.0) % Plt Count TNP MPV 10.8 (9.4-12.3) fL Immature Gran % (Auto) 0.3 (0.0-0.4) % Neut % (Auto) 57.7 (45-73) % Lymph % (Auto) 32.5 (20-40) % [place] % (Auto) 7.5 (2-11) % Eos % (Auto) 1.6 (0-4) % Baso % (Auto) 0.4 (0-2) % Lymph # (Auto) 3.0 (1.2-4.9) X10*3/uL [place] # (Auto) 0.7 (0.1-1.2) X10*3/uL Eos # (Auto) 0.2 (0.0-0.4) X10*3/uL Baso # (Auto) 0.0 (0.0-0.2) X10*3/uL Abs Immat Gran (auto) 0.03 (0.00-0.03) X10*3/uL Absolute Neuts (auto) 5.4 (2.0-8.3) x10*3/uL Absolute Nucleated RBC 0.000 (0.0-0.012) X10*3/uL Nucleated RBC % (auto) 0.0 (0.0-0.2) /100WBC Smear Tech's Comments VERIFIED PT 10.4 (10.0-13.1) SEC INR 0.9 (0.9-1.1) Sodium 141 (135-145) mmol/L Potassium 5.4 H D (3.3-5.1) mmol/L Chloride 105 (96-108) mmol/L Carbon Dioxide 25 (22-29) mmol/L Anion Gap 16 (12-20) BUN 9 (9-16) mg/dL Creatinine 0.77 (0.5-1.4) mg/dL Estim Creat Clear Calc 106.8 Estimated GFR > 60 Random Glucose 134 H (60-115) mg/dL Lactic Acid (0.5-2.0) mmol/L Calcium 9.9 D (8.4-10.2) mg/dL Magnesium 2.0 (1.6-2.6) mg/dL Total Bilirubin 0.7 (0.0-1.0) mg/dL Direct Bilirubin 0.1 (0.0-0.5) mg/dL AST 24 (5-31) U/L ALT 24 (0-31) U/L Alkaline Phosphatase 91 (39-117) U/L B-Natriuretic Peptide (<100) pg/mL Total Protein 7.5 (6.5-8.0) g/dL Albumin 4.6 (3.5-5.0) g/dL Lipase 13 (8-78) U/L Urine Color Urine Appearance Urine pH (5.0-9.0) Ur Specific [place] (1.005-1.025) Urine Protein (Neg-Trace) mg/dL Urine Glucose (UA) (Negative) mg/dL Urine Ketones (Negative) mg/dL Urine Blood (Negative) Urine Nitrite (Negative) Ur Leukocyte Esterase (Negative) Urine RBC (0-2) /HPF Urine WBC (0-5) /HPF Ur Squamous Epith Cells (0-2) /HPF Urine Bacteria (None Seen) Hyaline Casts (0-2) /LPF 01/12/23 01/12/23 01/12/23 Range/Units 17:58 19:09 20:34 WBC (4.8-10.8) X10*3/uL RBC (4.20-5.50) X10*6/uL Hgb (12.0-16.0) g/dl Hct (37.0-47.0) % MCV (80.0-98.0) fL MCH (27.0-33.0) pg MCHC (31.0-35.0) g/dl RDW (11.0-16.0) % Plt Count MPV (9.4-12.3) fL Immature Gran % (Auto) (0.0-0.4) % Neut % (Auto) (45-73) % Lymph % (Auto) (20-40) % [place] % (Auto) (2-11) % Eos % (Auto) (0-4) % Baso % (Auto) (0-2) % Lymph # (Auto) (1.2-4.9) X10*3/uL [place] # (Auto) (0.1-1.2) X10*3/uL Eos # (Auto) (0.0-0.4) X10*3/uL Baso # (Auto) (0.0-0.2) X10*3/uL Abs Immat Gran (auto) (0.00-0.03) X10*3/uL Absolute Neuts (auto) (2.0-8.3) x10*3/uL Absolute Nucleated RBC (0.0-0.012) X10*3/uL Nucleated RBC % (auto) (0.0-0.2) /100WBC Smear Tech's Comments PT (10.0-13.1) SEC INR (0.9-1.1) Sodium (135-145) mmol/L Potassium (3.3-5.1) mmol/L Chloride (96-108) mmol/L Carbon Dioxide (22-29) mmol/L Anion Gap (12-20) BUN (9-16) mg/dL Creatinine (0.5-1.4) mg/dL Estim Creat Clear Calc Estimated GFR Random Glucose (60-115) mg/dL Lactic Acid 1.4 (0.5-2.0) mmol/L Calcium (8.4-10.2) mg/dL Magnesium (1.6-2.6) mg/dL Total Bilirubin (0.0-1.0) mg/dL Direct Bilirubin (0.0-0.5) mg/dL AST (5-31) U/L ALT (0-31) U/L Alkaline Phosphatase (39-117) U/L B-Natriuretic Peptide 12 (<100) pg/mL Total Protein (6.5-8.0) g/dL Albumin (3.5-5.0) g/dL Lipase (8-78) U/L Urine Color Dark Yellow Urine Appearance Cloudy Urine pH 5.5 (5.0-9.0) Ur Specific [place] 1.025 (1.005-1.025) Urine Protein Trace (Neg-Trace) mg/dL Urine Glucose (UA) Negative (Negative) mg/dL Urine Ketones Negative (Negative) mg/dL Urine Blood Trace H (Negative) Urine Nitrite Positive H (Negative) Ur Leukocyte Esterase Trace H (Negative) Urine RBC 0-2 (0-2) /HPF Urine WBC 11-20 H (0-5) /HPF Ur Squamous Epith Cells 0-2 (0-2) /HPF Urine Bacteria 4+ (None Seen) Hyaline Casts 0-2 (0-2) /LPF <ADWOA Mcelroy - Last Filed: 01/12/23 22:17> Medications Administered Discontinued Medications Generic Name Dose Route Start Last Admin Trade Name Rameshq PRN Reason Stop Dose Admin Sodium Chloride 1,000 mls @ 999 mls/hr 01/12/23 18:30 01/12/23 18:34 Ns IV 01/12/23 19:30 999 mls/hr .Q1H1M EMI Administration Sodium Chloride 1,000 mls @ 999 mls/hr 01/12/23 19:00 01/12/23 20:07 Ns IV 01/12/23 20:00 999 mls/hr .Q1H1M EMI Administration Ceftriaxone Sodium 1 gm/ 50 mls @ 100 mls/hr 01/12/23 18:54 01/12/23 20:07 Sodium Chloride IV 01/12/23 19:23 100 mls/hr ONCE ONE Administration Ketorolac Tromethamine 30 mg 01/12/23 18:18 01/12/23 18:37 Ketorolac Tromethamine 15 Mg/Ml Vial IVPUSH 01/12/23 18:19 30 mg ONCE ONE Administration Morphine Sulfate 4 mg 01/12/23 18:45 01/12/23 19:15 Morphine Sulfate 4 Mg/Ml Cartridge IVPUSH 01/12/23 18:46 4 mg ONCE ONE Administration Protocol Sodium Zirconium Cyclosilicate 10 gm 01/12/23 18:28 01/12/23 19:15 Sodium Zirconium Cyclosilicate 10 Gm Powd.Pack PO 01/12/23 18:29 10 gm ONCE ONE Administration <ADWOA Gallagher - Last Filed: 01/12/23 12:19> Medications Administered Discontinued Medications Generic Name Dose Route Start Last Admin Trade Name Freq PRN Reason Stop Dose Admin Sodium Chloride 1,000 mls @ 999 mls/hr 01/12/23 18:30 01/12/23 18:34 Ns IV 01/12/23 19:30 999 mls/hr .Q1H1M EMI Administration Sodium Chloride 1,000 mls @ 999 mls/hr 01/12/23 19:00 01/12/23 20:07 Ns IV 01/12/23 20:00 999 mls/hr .Q1H1M EMI Administration Ceftriaxone Sodium 1 gm/ 50 mls @ 100 mls/hr 01/12/23 18:54 01/12/23 20:07 Sodium Chloride IV 01/12/23 19:23 100 mls/hr ONCE ONE Administration Ketorolac Tromethamine 30 mg 01/12/23 18:18 01/12/23 18:37 Ketorolac Tromethamine 15 Mg/Ml Vial IVPUSH 01/12/23 18:19 30 mg ONCE ONE Administration Morphine Sulfate 4 mg 01/12/23 18:45 01/12/23 19:15 Morphine Sulfate 4 Mg/Ml Cartridge IVPUSH 01/12/23 18:46 4 mg ONCE ONE Administration Protocol Sodium Zirconium Cyclosilicate 10 gm 01/12/23 18:28 01/12/23 19:15 Sodium Zirconium Cyclosilicate 10 Gm Powd.Pack PO 01/12/23 18:29 10 gm ONCE ONE Administration <ADWOA Mcelroy - Last Filed: 01/12/23 22:17> Critical Care Time Critical Care Time Critical Care Time: Yes <ADWOA Mcelroy Last Filed: 01/12/23 22:17> Total Critical Care Time: 60 <ADWOA Mcelroy - Last Filed: 01/12/23 22:17> Attestation: I attest to this time spent taking care of the patient, obtaining history, physical, reviewing labs, imaging, speaking to my attending, speaking to specialist. <ADWOA Mcelroy - Last Filed: 01/12/23 22:17> Discharge Plan Discharge Clinical Impression: Abdominal pain, Kidney stone, UTI (urinary tract infection), Post-operative complication <ADWOA Gallagher Last Filed: 01/12/23 12:19> Patient Disposition: Home, Self-Care <ADWOA Gallagher Last Filed: 01/12/23 12:19> Instructions: Kidney Stones (ED), Urinary Tract Infection in Women (DC), Abdominal Pain (ED) <ADWOA Gallagher - Last Filed: 01/12/23 12:19> Additional Instructions: Take your medications as prescribed. If you were prescribed antibiotics today, it is important that you take your medication to their entirety, do not skip any doses, do not finish them early. Follow-up with your primary care provider this week. Return to the emergency department with new or worsening symptoms. Such as fevers, chills, chest pain, shortness of breath, nausea, vomiting, dizziness, headache, vision changes, lethargy In case of emergency call 911 Please reach out to bariatric tomorrow morning call and schedule appointment. They recommend starting a liquid diet and or taking protein shakes. Return with new or worsening symptoms, such as not tolerating p.o., worsening pain, fevers, chills, nausea, vomiting. A narcotic has been sent to your pharmacy please take this as prescribed. Do not take more than the prescribed dose. Narcotic medications can cause addiction. Please do not mix them with alcohol. Do not take them while driving or operating machinery. Do not take them with any other narcotics. Do not share them with friends or family. They can cause constipation. Take them only for severe pain. Bariatric Group: [phone]/CT abdomen pelvis wo IV con IMPRESSION: Small nonobstructing right renal stone. New fat stranding surrounding the gastric lap band catheter just deep to the mid anterior abdominal wall compared to January 2018. No fluid collection.. US/US abdomen limited IMPRESSION: Questionable mild hepatic steatosis. No acute right upper quadrant abnormalities. <ADWOA Gallagher - Last Filed: 01/12/23 12:19> Prescriptions: New cefuroxime axetil 250 mg tablet 250 mg PO BID 7 Days Qty: 14 0RF morphine 15 mg tablet 15 mg PO Q6H PRN (Reason: pain) 5 Days Qty: 10 0RF Rx Instructions: Partial Fill upon patient request. No Action folic acid 1 mg tablet 1 mg PO DAILY 90 Days Qty: 90 3RF losartan 50 mg tablet 50 mg PO DAILY Qty: 90 2RF tramadol 50 mg tablet 50 mg PO BID PRN (Reason: pain) 30 Days Qty: 60 2RF albuterol sulfate 90 mcg/actuation HFA aerosol inhaler 2 puff inhalation Q6H PRN (Reason: shortness of breath or wheezing) Qty: 6.7 0RF bisacodyl [Dulcolax (bisacodyl)] 5 mg tablet,delayed release (DR/EC) 10 mg PO ONCE 1 Days Qty: 2 0RF Rx Instructions: Take 2 tablets by mouth at 12:00pm the day before your procedure. Citrucel 500 mg tablet 500 mg PO TID Qty: 90 5RF hydrocortisone [Proctosol HC] 2.5 % cream with perineal applicator 1 appl DC BEDTIME PRN (Reason: hemorrhoids) Qty: 30 3RF <ADWOA Gallagher - Last Filed: 01/12/23 12:19> Referrals: [facility] [place] [facility] [Provider Group] - 2 days Satish Cunningham MD [Physician] - 1 day <ADWOA Gallagher - Last Filed: 01/12/23 12:19> Stand Alone Forms: Work/School Release <ADWOA Gallagher - Last Filed: 01/12/23 12:19> Interventions: ED Discharge Assessment Last Done: 01/12/23 22:16 <ADWOA Gallagher - Last Filed: 01/12/23 12:19> Discharge Date/Time: 01/12/23 22:16 <ADWOA Gallagher - Last Filed: 01/12/23 12:19>
[2023-01-12 17:01] LABS: INTERNATIONAL NORM RATIO 0.9 (0.9-1.1); Prothrombin Time 10.4 SEC (10.0-13.1)
[2023-01-12 17:10] LABS: Alanine Aminotransferase 24 U/L (0-31); Albumin Level 4.6 g/dL (3.5-5.0); Alkaline Phosphatase 91 U/L (39-117); Anion Gap 16 (12-20); Aspartate Amino Transferase 24 U/L (5-31); Bilirubin Direct 0.1 mg/dL (0.0-0.5); Bilirubin Total 0.7 mg/dL (0.0-1.0); Blood Urea Nitrogen 9 mg/dL (9-16); Calcium 9.9 mg/dL (8.4-10.2); Carbon Dioxide 25 mmol/L (22-29); Chloride 105 mmol/L (96-108); Creatinine Clr Calc Pharmacy 106.8; Estimated Glomerular Filt Rate > 60; Glucose Random 134 mg/dL (60-115); Lipase 13 U/L (8-78); Potassium 5.4 mmol/L (3.3-5.1); Sodium 141 mmol/L (135-145); Total Protein 7.5 g/dL (6.5-8.0)
[2023-01-12 17:15] LABS: Basophils Percent Auto 0.4 % (0-2); Eosinophils Absolute Auto 0.2 X10*3/uL (0.0-0.4); Eosinophils Percent Auto 1.6 % (0-4); Hematocrit 45.5 % (37.0-47.0); Hemoglobin 15.1 g/dl (12.0-16.0); Imm Gran Abs Auto 0.03 X10*3/uL (0.00-0.03); Imm Gran Pct Auto 0.3 % (0.0-0.4); Lymphocytes Percent Auto 32.5 % (20-40); MANUAL DIFF FLAG SCAN; Mean Corpuscular HGB Conc 33.2 g/dl (31.0-35.0); Mean Corpuscular Hemoglobin 30.3 pg (27.0-33.0); Mean Corpuscular Volume 91.4 fL (80.0-98.0); Mean Platelet Volume 10.8 fL (9.4-12.3); Monocytes Absolute Auto 0.7 X10*3/uL (0.1-1.2); Monocytes Percent Auto 7.5 % (2-11); Neutrophils Absolute Auto 5.4 x10*3/uL (2.0-8.3); Neutrophils Percent Auto 57.7 % (45-73); PLT CLUMP 1; Red Blood Count 4.98 X10*6/uL (4.20-5.50); Red Cell Distribution Width 13.6 % (11.0-16.0); SCAN SMEAR FLAG 1; White Blood Count 9.3 X10*3/uL (4.8-10.8)
[2023-01-12 17:19] LABS: SLIDE REVIEW VERIFIED
[2023-01-12 17:38] VITALS: BP 126/59; PULSE 83; RESP 18; O2SAT 98
[2023-01-12 18:21] LABS: Appearance Urine Cloudy; Color Urine Dark Yellow; Glucose Urine UA Negative (Negative); Leukocyte Esterase Urine Trace (Negative); Nitrite Urine Positive (Negative); PH 5.5 (5.0-9.0); Specific Gravity - Urine 1.025 (1.005-1.025); UMIC TRIGGER UACC YES; Urine Blood Trace (Negative); Urine Ketones Negative (Negative); Urine Protein Trace mg/dL (Neg-Trace)
[2023-01-12 18:23] LABS: Bacteria Urine 4+ (None Seen); Hyaline Casts Urine 0-2 /LPF (0-2); RBC Urine 0-2 /HPF (0-2); Squamous Epithelial Cell Urine 0-2 /HPF (0-2); UACC Culture Trigger YES
[2023-01-12] MEDS: 0.9 % Sodium Chloride 1,000 ML 999 ML IV ×2 (18:34→20:07)
[2023-01-12] MEDS: Ketorolac Tromethamine 15 MG/ML VIAL 30 MG IVPUSH (18:37)
--- NOTE | 2023-01-12 18:53 | PC.NURSE ---
call placed to pharmacy to bring [facility]
[2023-01-12] MEDS: Sodium Zirconium Cyclosilicate 10 GM POWD.PACK PO (19:15)
[2023-01-12] MEDS: Morphine Sulfate 4 MG/ML CARTRIDGE IVPUSH (19:15)
[2023-01-12 19:29] LABS: Lactic Acid 1.4 mmol/L (0.5-2.0)
[2023-01-12 19:56] VITALS: BP 136/88; PULSE 78; RESP 18; TEMP 36.6; O2SAT 96
[2023-01-12] MEDS: cefTRIAXone sodium 1 GM in 0.9 % Sodium Chloride 50 ML IV (20:07)
--- NOTE | 2023-01-12 20:15 | PC.NURSE ---
Took over care at 7:00pm from HAN Denise, pt denies any sob or chest pain, medicated per mar, Provider into assess pt, plan is for pt to be discharge home after completing medication. Will continue monitor.
[2023-01-12 20:52] VITALS: BP 116/61; PULSE 75; RESP 17; TEMP 36.4; O2SAT 96
[2023-01-12 21:05] LABS: B Type Natriuretic Peptide 12 pg/mL (<100)
--- NOTE | 2023-01-12 22:14 | PC.NURSE ---
pt reports feeling better, reviewed discharge instructions, pt verbalized understanding, IV removed, no sign of distress upon discharge,
== END 2023-01-12 22:16 | disposition home or self-care (01) ==
PROVIDERS: Physician Assistant; Emergency Provider Emergency Medicine Emergency Medical Services; PCP Internal Medicine
DX: N39.0 Urinary tract infection, site not specified (principal); N20.0 Calculus of kidney; R10.11 Right upper quadrant pain; K95.09 Other complications of gastric band procedure; Y84.8 Other medical procedures as the cause of abnormal reaction of the patient, or of later complication, without mention of misadventure at the time of the procedure; Y92.9 Unspecified place or not applicable; E11.9 Type 2 diabetes mellitus without complications; I10 Essential (primary) hypertension; F17.210 Nicotine dependence, cigarettes, uncomplicated
CPT/HCPCS: 36415; 74176; 76705; 80048; 80076; 81001; 83605; 83690; 83735; 83880; 85025; 85610; 87040; 87086; 87088; 87186; 96361; 96365; 96366; 96375; 99285; J0696; J1885; J2270

== ENCOUNTER → 2023-01-13 12:48 | Outpatient (BNVA) | payer OTHER, SELFPAY | PROVIDERS: PCP Internal Medicine; Visit Provider Surgery | DX: E66.9 Obesity, unspecified (principal); E11.65 Type 2 diabetes mellitus with hyperglycemia; I10 Essential (primary) hypertension; E87.5 Hyperkalemia; F41.1 Generalized anxiety disorder; Z68.38 Body mass index [BMI] 38.0-38.9, adult; Z98.84 Bariatric surgery status | CPT/HCPCS: 99202 ==

== ENCOUNTER 2023-04-10 14:50 | Outpatient (REF) | payer OTHER, SELFPAY ==
[2023-04-10 18:03] LABS: CT PCR NOT DETECTED (Not Detect.); NG PCR NOT DETECTED (Not Detect.)
[2023-04-17 02:49] LABS: HPV mRNA E6/E7 rflx Not Detected (Not Detected)
== END 2023-04-10 14:51 | disposition home or self-care (01) ==
LOC: HO.LNP 14:50
PROVIDERS: PCP Internal Medicine; Visit Provider Advanced Practice Midwife
DX: Z01.419 Encounter for gynecological examination (general) (routine) without abnormal findings (principal); Z11.51 Encounter for screening for human papillomavirus (HPV); Z20.2 Contact with and (suspected) exposure to infections with a predominantly sexual mode of transmission
CPT/HCPCS: 0353U; 87624; 88142

== ENCOUNTER 2023-04-10 14:50 | Outpatient (AMB) | payer OTHER, SELFPAY ==
--- NOTE | 2023-04-10 14:53 | A.OFFVIS_ITS ---
Intake Vital Signs 04/10/23 14:56 Height 5 ft 5 in Weight 246 lb BMI 40.9 BP 130/80 Intake Visit Reasons: New patient Annual Intake Note: The patient agreed to use of a medical sales specialist during this encounter. Scribed for ISAIAH Cartwright by Sienna Cardenas medical sales specialist, on 04/10/2023 at 3:13 pm EST. Analytical Scientist Required: No Information Interpreted: non-clinical & clinical Tunnel Heading Supervisor: Tunnel Heading Supervisor Present (Vicki) Allergies lisinopril Allergy (Intermediate, Verified 04/10/23 15:00) Rash paroxetine [Paxil] Adverse Reaction (Intermediate, Verified 04/10/23 15:00) weight gain Is last menstrual period known: No Post menopausal: Yes HPI HPI Comments History of Present Illness Details She is a postmenopausal woman presenting for annual exam. Patient admits she does try to eat a healthy diet including Calcium and Vitamin D. She does not stay active with exercise. She is interested in swimming due to right hip pain. LMP 13 months ago, no hot flashes. Currently sexually active. Denies vaginal itching and irritation. STD screening offered; she accepts. Denies family hx of colon and ovarian cancer. Last pap smear 07/31/08. Last mammogram 01/08/23. UTD on colonoscopy; found 5 polyps. Admits she is still smoking and states when she tries to stop smoking it affects her anxiety. [facility] Medical History Annual physical exam Bronchitis Colon cancer screening COVID-19 vaccine series completed DDD (degenerative disc disease), lumbar Deafness in right ear Depression Flu-like symptoms Generalized anxiety disorder Hemorrhoid History of trigger finger Hot flash, menopausal Hypertension Impaired hearing Migraine Polycystic ovarian syndrome Post-operative nausea and vomiting Sciatica, right side Sinus infection Sinus infection Tobacco abuse Type 2 diabetes mellitus with hyperglycemia Viral illness Surgical History H/O umbilical hernia repair History of back surgery History of ear surgery Hx of colonoscopy Hx of laparoscopic gastric banding Family History Paternal Grandfather Myocardial infarct Paternal Uncle Prostate cancer Alcohol abuse Paternal Aunt Skin cancer Maternal Aunt Breast cancer Social History Housing: House Are you a primary patient care assistant to a significant other at home: No Do you presently have visiting nurse or other home services: No Alcohol intake: current Alcohol intake frequency: a few times a month Patient Tobacco Use Status: Current everyday Tobacco user Tobacco use type: Cigarette Cigarette Packs Per Day: 1 Cigarettes Per Day: 20.0 Years Smoked: 22 e-Cigarette/Vaping Use: Never Used Current occupational status: employed 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 Cognitive needs: No Hearing needs: No Vision needs: Yes Female Reproductive History Menstrual Age of Menarche: 11 control method: none Total pregnancies: 9 Full term: 2 Number of Living Children: 2 Ab spontaneous: 6 Ectopics: 1 Date of last pap smear: 07/31/08 (negative) History of abnormal pap smear: Yes (CIN1 2005 2004, ASCUS 2004) Date of Mammogram: 01/08/23 Physical Exam Vital Signs: Last Vital Signs BP 130/80 04/10/23 14:56 BMI result Body Mass Index 40.9 Const General: cooperative, healthy appearing, no acute distress, well developed and alert Orientation/consciousness: patient oriented x3 HEENT Head: Yes normal to inspection Eyes General: appearance normal, both eyes and all related structures Neck Neck: Yes normal visual inspection Thyroid: Thyroid normal Chest Chest palpation & inspection: normal inspection of the chest Breast/axilla inspection: normal inspection of the breasts (no puckering, dimpling, peau de orange, retraction, discharge, masses) Breast/axilla palpation: normal palpation of the breasts Resp Effort & Inspection: normal respiratory effort GI Inspection: Yes normal to inspection Palpation (GI): Soft to palpation (to palpation) Rectal Exam - Female: deferred General: Yes bladder normal to inspection External Female Exam: normal external appearance and normal appearance of the urethra Speculum Exam - Vagina: normal appearance of the vagina, normal palpation and normal vaginal discharge Speculum Exam - Cervix: normal appearance of the cervix, normal palpation and Other cervical findings present (bled slightly with pap) Bimanual exam- vagina & uterus: normal palpation and normal palpation Bimanual Exam- Adnexa, other: normal adnexae and no masses Skin General skin exam: no rashes or lesions noted Neuro General: patient oriented x3 Cognition (Neuro): normal cognition Extrem General: Yes normal to inspection Psych Attitude: cooperative Thought process: Normal thought process present Assessment & Plan Assessment & Plan (1) Encounter for well woman exam: Code(s): Z01.419 - Encounter for gynecological examination (general) (routine) without abnormal findings Plan: Discussed: Current recommendations for pap smears per ASCCP guidelines. Breast awareness and periodic self breast exams. Encouraged yearly mammograms. Maintaining a healthy lifestyle including a well balanced diet including Calcium and Vitamin D and routine exercise-modified for her own health concerns. Advised to wear sun hats, UV clothing and SPF sunscreen on exposed skin. Encouraged to lower tobacco intake and quit. GC/CT done today. Await results and treat accordingly. Contact office with any PMB. All of her questions and concerns were addressed to the best of my ability RTO in 1 year for AG. Orders: Orders CT NG by PCR Today Z01.419 - Encounter for gynecological examination (general) (routine) without abnormal findings Pap Smear Today Z01.419 - Encounter for gynecological examination (general) (routine) without abnormal findings Coding Level of Care Code New Pt Prev Care 40-64y(36009) Diagnoses Encounter for well woman exam Z01.419
[2023-04-10 14:56] VITALS: BP 130/80; BMI 40.9
== END 2023-04-10 15:32 | disposition home or self-care (01) ==
LOC: HO.HWS 14:50
PROVIDERS: PCP Internal Medicine; Visit Provider Advanced Practice Midwife
DX: Z01.419 Encounter for gynecological examination (general) (routine) without abnormal findings (principal)
CPT/HCPCS: 99386

== ENCOUNTER 2023-06-01 07:04 | Outpatient (REF) | payer OTHER, SELFPAY ==
[2023-06-01 07:15] LABS: MANUAL DIFF FLAG NO
[2023-06-01 08:05] LABS: Basophils Percent Auto 0.5 % (0-2); Eosinophils Absolute Auto 0.2 X10*3/uL (0.0-0.4); Eosinophils Percent Auto 2.1 % (0-4); Hematocrit 42.4 % (37.0-47.0); Hemoglobin 14.2 g/dl (12.0-16.0); Imm Gran Abs Auto 0.03 X10*3/uL (0.00-0.03); Imm Gran Pct Auto 0.4 % (0.0-0.4); Lymphocytes Absolute Auto 2.1 X10*3/uL (1.2-4.9); Lymphocytes Percent Auto 25.4 % (20-40); Mean Corpuscular HGB Conc 33.5 g/dl (31.0-35.0); Mean Corpuscular Hemoglobin 30.5 pg (27.0-33.0); Monocytes Absolute Auto 0.6 X10*3/uL (0.1-1.2); Monocytes Percent Auto 7.2 % (2-11); Neutrophils Absolute Auto 5.3 x10*3/uL (2.0-8.3); Neutrophils Percent Auto 64.4 % (45-73); Platelet Count 259 X10*3/uL (160-400); Red Blood Count 4.66 X10*6/uL (4.20-5.50); Red Cell Distribution Width 13.7 % (11.0-16.0); White Blood Count 8.2 X10*3/uL (4.8-10.8)
[2023-06-01 08:23] LABS: Estimated Average Glucose 166 mg/dL; Hemoglobin A1c % 7.4 % (<6.0)
[2023-06-01 08:40] LABS: Alanine Aminotransferase 22 U/L (0-31); Albumin Level 4.3 g/dL (3.5-5.0); Alkaline Phosphatase 89 U/L (39-117); Anion Gap 15 (12-20); Aspartate Amino Transferase 17 U/L (5-31); Bilirubin Total 0.5 mg/dL (0.0-1.0); Blood Urea Nitrogen 8 mg/dL (9-16); Calcium 9.7 mg/dL (8.4-10.2); Carbon Dioxide 24 mmol/L (22-29); Chloride 106 mmol/L (96-108); Cholesterol 223 mg/dL (<200); Estimated Glomerular Filt Rate > 60; Glucose Random 179 mg/dL (60-115); HDL Cholesterol 33 mg/dL (>40); LDL Cholesterol Calculated 138 mg/dL (<100); Potassium 4.6 mmol/L (3.3-5.1); Sodium 140 mmol/L (135-145); Total Protein 7.2 g/dL (6.5-8.0); Triglycerides 263 mg/dL (<150)
[2023-06-01 09:02] LABS: Free T4 (Free Thyroxine) 0.89 ng/dL (0.71-1.85); Thyroid Stimulating Hormone 2.77 uIU/mL (0.32-4.0); Vitamin D 25-OH Total 52.1 ng/mL (>30)
[2023-06-01 09:08] LABS: Folate 9.3 ng/mL (> or = 4.0); Vitamin B12 923 pg/mL (200-900)
[2023-06-01 11:09] LABS: Creatinine Urine 284.05 mg/dL; Microalbum/Creatinine Ratio Ur 9.5 ug/mg cr (<30)
== END 2023-06-01 07:05 | disposition home or self-care (01) ==
LOC: HO.LAB 07:04
PROVIDERS: PCP Internal Medicine; Visit Provider Internal Medicine
DX: I10 Essential (primary) hypertension (principal); E78.00 Pure hypercholesterolemia, unspecified; E11.65 Type 2 diabetes mellitus with hyperglycemia
CPT/HCPCS: 36415; 80053; 80061; 82043; 82306; 82570; 82607; 82746; 83036; 84439; 84443; 85025

== ENCOUNTER 2023-06-01 07:18 | Day surgery (SDC) | payer OTHER, SELFPAY ==
[2023-05-27 19:44] VITALS: BMI 40.8
--- NOTE | 2023-05-29 10:18 | HO.ANESPROP2 ---
Documented by User: Yakelin Mckeon NP 05/29/23 10:19 HPI - Anesthesia Eval Consult details Narrative: 53yo F for Colonoscopy s/p same 12/2021 with [facility] Active Problems Active Problems: All Active Problems (Updated 05/27/23 @ 19:43 by Karina Weathers RN) Constipation (Acute) Obesities, morbid (Acute) Hyperkalemia (Acute) Tubular adenoma (Acute) S/P trigger finger release (Acute) Flu-like symptoms (Acute) Trigger finger of left thumb (Acute) Trigger finger of left hand (Acute) Annual physical exam (Acute) Stress incontinence (Acute) Breast cancer screening by mammogram (Acute) Hypercholesterolemia (Acute) Obesity (BMI 30-39.9) (Acute) Hx of laparoscopic gastric banding (Acute) Hemorrhoid (Acute) Generalized anxiety disorder (Acute) Tobacco abuse (Acute) Type 2 diabetes mellitus with hyperglycemia (Acute) DDD (degenerative disc disease), lumbar (Acute) Hypertension (Acute) Past Medical History Medical History Vertigo Renal stones History of trigger finger Post-operative nausea and vomiting COVID-19 vaccine series completed Impaired hearing Depression Sinus infection Bronchitis Viral illness Sinus infection Hemorrhoid Colon cancer screening Annual physical exam Polycystic ovarian syndrome Deafness in right ear Migraine Sciatica, right side Generalized anxiety disorder Tobacco abuse Type 2 diabetes mellitus with hyperglycemia DDD (degenerative disc disease), lumbar Hypertension Family History Family History Paternal Grandfather Myocardial infarct Paternal Uncle Prostate cancer Alcohol abuse Paternal Aunt Skin cancer Maternal Aunt Breast cancer Family history of problems with anesthesia: No Surgical History Surgical History Hx of colonoscopy History of back surgery H/O umbilical hernia repair History of ear surgery Hx of laparoscopic gastric banding History of Problems with Anesthesia: No Social History Social History Housing: House Are you a primary director of home care hospice to a significant other at home: No Do you presently have visiting nurse or other home services: No Alcohol intake: current Alcohol intake frequency: a few times a month Patient Tobacco Use Status: Current everyday Tobacco user Tobacco use type: Cigarette Cigarette Packs Per Day: 1 Cigarettes Per Day: 20.0 Years Smoked: 30 Smoked in Last 30 Days: Yes e-Cigarette/Vaping Use: Never Used Patient Interested in Nicotine Replacement: No Use of substances other than those prescribed or required for medical reasons: No Have you been hit, kicked, punched, or otherwise hurt by someone within the past year? 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 Cognitive needs: No Hearing needs: No Vision needs: Yes Meds Allergies Allergy/AdvReac Type Severity Reaction Status Date / Time lisinopril Allergy Intermediate Rash Verified 04/10/23 15:00 paroxetine [Paxil] AdvReac Intermediate weight gain Verified 04/10/23 15:00 Exam Exam Date and Time: May 29, 2023 1018 Height,Weight and Vital Signs: Height 5 ft 5 in Weight 111.13 kg Assessment and Plan Assessment Anesthesia Assessment: Chart Reviewed Final Anesthetic Review Family History of Problems with Anesthesia: No History of Problems with Anesthesia: No Documented by User: Jacqueline Beach MD 06/01/23 09:05 [facility] Past Medical History Medical History Vertigo Renal stones History of trigger finger Post-operative nausea and vomiting COVID-19 vaccine series completed Impaired hearing Depression Sinus infection Bronchitis Viral illness Sinus infection Hemorrhoid Colon cancer screening Annual physical exam Polycystic ovarian syndrome Deafness in right ear Migraine Sciatica, right side Generalized anxiety disorder Tobacco abuse Type 2 diabetes mellitus with hyperglycemia DDD (degenerative disc disease), lumbar Hypertension Family History Family History Paternal Grandfather Myocardial infarct Paternal Uncle Prostate cancer Alcohol abuse Paternal Aunt Skin cancer Maternal Aunt Breast cancer Surgical History Surgical History Hx of colonoscopy History of back surgery H/O umbilical hernia repair History of ear surgery Hx of laparoscopic gastric banding Social History Social History Housing: House Are you a primary director of home care hospice to a significant other at home: No Do you presently have visiting nurse or other home services: No Alcohol intake: current Alcohol intake frequency: a few times a month Patient Tobacco Use Status: Current everyday Tobacco user Tobacco use type: Cigarette Cigarette Packs Per Day: 1 Cigarettes Per Day: 20.0 Years Smoked: 30 Smoked in Last 30 Days: Yes e-Cigarette/Vaping Use: Never Used Patient Interested in Nicotine Replacement: No Use of substances other than those prescribed or required for medical reasons: No Have you been hit, kicked, punched, or otherwise hurt by someone within the past year? 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 Cognitive needs: No Hearing needs: No Vision needs: Yes Meds Allergies Allergy/AdvReac Type Severity Reaction Status Date / Time lisinopril Allergy Intermediate Rash Verified 04/10/23 15:00 paroxetine [Paxil] AdvReac Intermediate weight gain Verified 04/10/23 15:00 Exam Airway Mallampati Class: II TM Dist: >3cm Neck ROM: Full Heart: rrr Lungs: cta Assessment and Plan Assessment Anesthesia Assessment: Anesthesia Plan Discussed (ponv history) Final Anesthetic Review NPO: Yes ASA Class: II Final Preanesthetic Review: No Changes in Pt Med Stat, Meds/Allgs Chart Reviewed, Consent Obtained/Reviewed and Anes Risks/Benef Reviewed Patient Risk: Low Procedure Risk: Low Anesthetic Plan Anesthetic Plan: MAC: Disposition: Standard PACU
[2023-06-01 08:46] VITALS: BP 151/86; PULSE 67; RESP 16; TEMP 36.4; O2SAT 99
--- NOTE | 2023-06-01 09:11 | MHC.SHP ---
Pre-Procedural Eval Section A Date of Service: 06/01/23 Section B Chief Complaint: Personal history of other diseases of the digestiv Relevant Family History (Specify if Yes): No Relevant Social History: Tobacco Use Present Medications: see Short Stay Collaborative assessment Medical History: Significant History (Vertigo Renal stones History of trigger finger Post-operative nausea and vomiting COVID-19 vaccine series completed Impaired hearing Depression Sinus infection Bronchitis Viral illness Sinus infection Hemorrhoid Colon cancer screening Annual physical exam Polycystic ovarian syndrome Deafness in [facility]) History of Previous Operations: Relevant previous surgery/procedure and date(s) (Hx of colonoscopy History of back surgery H/O umbilical hernia repair History of ear surgery Hx of laparoscopic gastric banding) Allergies: Allergies Allergy/AdvReac Type Severity Reaction Status Date / Time lisinopril Allergy Intermediate Rash Verified 04/10/23 15:00 paroxetine [Paxil] AdvReac Intermediate weight gain Verified 04/10/23 15:00 Review of Systems Sugical H&P ROS: Negative: Constitution, Cardiovascular, Respiratory, Neurological, Psychiatric, Hem-Onc, Allergic/Immunologic, Gastrointestinal, Genitourinary, Musculoskeletal, Integumentary, Endocrine and Eyes/Ears/Nose/Throat Exam Surgical H&P Exam: Normal: HEENT, Normal: Heart, Normal: Lungs, Normal: Extremities, Normal: Abdomen, Normal: Skin and Normal: Neurological Plan Diagnosis/Plan: Unchanged I have reviewed the history and physical and performed a pertinent physical examination on my patient. No changes have occurred unless specified. Time Spent With Patient Time: Total time managing care of this patient today ____ minutes.
[2023-06-01] MEDS: Lactated Ringers 1,000 ML 100 ML IVCONT (09:23)
[2023-06-01 09:24] LABS: Glucose, Whole Blood 170 mg/dL (60-115)
--- NOTE | 2023-06-01 09:29 | W.PM.OPN ---
Operative Note Operative Note Date of Service: 06/01/23 Narrative: Operative Information Procedure Description: Colonoscopy Indication: hx of colon polyps Anesthesia: MAC COLONOSCOPY Instrument: Olympus variable stiffness Adult scope 190L Colonoscopy Monitoring: Vital signs and clinical assessment, continuous EKG monitoring, Pulse oximetry, Carbon Dioxide monitoring and blood pressure monitoring were done throughout the procedure. Colon withdrawal time was 10 minutes. Procedure: The patient was placed in the left lateral decubitis position and pre-procedure medications were administered. After a digital rectal examination of the ano-rectum, the video colonoscope was inserted into the rectum and advanced through the colon to the cecum/TI. The colonoscope was slowly withdrawn in a retrograde panoramic fashion and the colon mucosa was carefully examined including a retroflexed view of the rectum. Findings and interventions are described below. Procedure Difficulty: easy Findings: Terminal Ileum-normal Cecum:normal Ascending Colon: normal Transverse Colon -normal Descending Colon:normal Sigmoid Colon: normal Rectum: Retroflexion with small internal hemorrhoids, grade I Anorectum - normal Colon preparation: [place] Bowel Preparation Scale Right colon; 2 Transverse colon: 2 Left colon; 2 (0 = Unprepared colon segment with mucosa not seen due to solid stool that cannot be cleared. 1 = Portion of mucosa of the colon segment seen, but other areas of the colon segment not well seen due to staining, residual stool and/or opaque liquid. 2 = Minor amount of residual staining, small fragments of stool and/or opaque liquid, but mucosa of colon segment seen well. 3 = Entire mucosa of colon segment seen well with no residual staining, small fragments of stool or opaque liquid) Impression and Post Procedure Diagnosis: internal hemorrhoids Plan: High fiber diet leaflet Avoid straining at stool, epsom salts and sitz bath, anusol supps or cream Repeat Colonoscopy in 3-4 years due to prior hx of polyps or earlier if clinically indicated Above findings were reviewed with the patient and relevant handouts were provided if indicated.
[2023-06-01 09:58] VITALS: BP 127/50; PULSE 67; RESP 20; TEMP 36.2; O2SAT 96
[2023-06-01 10:13] VITALS: BP 139/79; PULSE 67; RESP 20; TEMP 36.1; O2SAT 99
== END 2023-06-01 10:31 | disposition home or self-care (01) ==
PROVIDERS: PCP Internal Medicine; Visit Provider Internal Medicine Gastroenterology
PROC: 0DJD8ZZ Inspection of Lower Intestinal Tract, Via Natural or Artificial Opening Endoscopic (ICD-10-PCS; CPT 45378; principal; 2023-06-01 09:40)
DX: K64.0 First degree hemorrhoids (principal); Z86.010 Personal history of colon polyps; Z87.19 Personal history of other diseases of the digestive system; R19.4 Change in bowel habit; E11.9 Type 2 diabetes mellitus without complications; I10 Essential (primary) hypertension; E78.00 Pure hypercholesterolemia, unspecified; F17.210 Nicotine dependence, cigarettes, uncomplicated; E66.9 Obesity, unspecified; Z68.38 Body mass index [BMI] 38.0-38.9, adult; Z98.84 Bariatric surgery status
CPT/HCPCS: 45378; 82947

== ENCOUNTER → 2023-06-01 07:18 | Outpatient (BNV) | payer OTHER, SELFPAY | PROVIDERS: PCP Internal Medicine; Visit Provider Internal Medicine Gastroenterology | DX: Z12.11 Encounter for screening for malignant neoplasm of colon (principal); Z86.010 Personal history of colon polyps | CPT/HCPCS: 45378 ==

== ENCOUNTER 2023-06-15 14:54 | Outpatient (AMB) | payer OTHER, SELFPAY ==
--- NOTE | 2023-06-15 14:57 | A.OFFVIS_ITS ---
Intake Vital Signs 06/15/23 14:59 Height 5 ft 5 in Weight 246 lb BMI 40.9 BP 142/74 H Blood Pressure Location Lt brachial Position Sitting Pulse 85 Intake Visit Reasons: s/P [place];Dr Currie Intake Note: Patient follow up for hemorrhoids and Colonoscopy results. Patient denies any GI issues. It Network Engineer Required: No Accompanied by: Self / Same As Patient Allergies lisinopril Allergy (Intermediate, Verified 06/15/23 14:56) Rash paroxetine [Paxil] Adverse Reaction (Intermediate, Verified 06/15/23 14:56) weight gain Medication List - Last Reconciled 06/15/23 by Di Bryant PA-C albuterol sulfate 90 mcg/actuation 2 puffs inhalation Q6H PRN folic acid 1 mg PO DAILY 90 days hydrocodone-acetaminophen 5-325 mg 1 tab PO TID PRN 30 days hydrocortisone 2.5% (Proctosol HC) 1 appl ND BEDTIME PRN losartan 50 mg PO DAILY methylcellulose (laxative) (Citrucel) 500 mg PO TID tramadol 50 mg PO BID PRN 30 days HPI HPI Comments History of Present Illness Details A 53-year-old female personal history of tubulovillous adenoma for/2021 follows up after recent repeat polyp surveillance colonoscopy. She tolerated procedure well-we reviewed procedure report and recommendation. She had no polyps, small hemorrhoids were noted She has no GI or general complaints PFSH Medical History Vertigo Renal stones History of trigger finger Post-operative nausea and vomiting COVID-19 vaccine series completed Impaired hearing Depression Sinus infection Bronchitis Viral illness Sinus infection Hemorrhoid Colon cancer screening Annual physical exam Polycystic ovarian syndrome Deafness in right ear Migraine Sciatica, right side Generalized anxiety disorder Tobacco abuse Type 2 diabetes mellitus with hyperglycemia DDD (degenerative disc disease), lumbar Hypertension Surgical History Hx of colonoscopy History of back surgery H/O umbilical hernia repair History of ear surgery Hx of laparoscopic gastric banding Family History Paternal Grandfather Myocardial infarct Paternal Uncle Prostate cancer Alcohol abuse Paternal Aunt Skin cancer Maternal Aunt Breast cancer Social History Housing: House Are you a primary personal caregiver to a significant other at home: No Do you presently have visiting nurse or other home services: No Alcohol intake: current Alcohol intake frequency: a few times a month Patient Tobacco Use Status: Current everyday Tobacco user Tobacco use type: Cigarette Cigarette Packs Per Day: 1 Cigarettes Per Day: 20.0 Years Smoked: 30 e-Cigarette/Vaping Use: Never Used Current occupational status: employed 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 Cognitive needs: No Hearing needs: No Vision needs: Yes Female Reproductive History Menstrual Age of Menarche: 11 Review of Systems Const All systems reviewed & are unremarkable except as noted in HPI and below Card Denies chest pain and Denies dyspnea Resp Denies dyspnea GI Denies abdominal pain Physical Exam Vital Signs: Last Vital Signs Pulse 85 06/15/23 14:59 BP 142/74 H 06/15/23 14:59 BMI result Body Mass Index 40.9 Const General: cooperative, healthy appearing, comfortable and no acute distress Limitations: no limitations Extrem General: Yes full ROM Psych Appearance: grossly normal and well kempt Mental Status: mental status grossly normal Speech and movement: Normal speech and movement present and Clear speech present Affect: normal affect Attitude: cooperative Thought process: Normal thought process present Results Reviewed Results Reviewed: Name: Judith Regalado Age/Sex: 51/F Attending: Delbert Currie MD : 1970 Submitted by: Delbert Currie MD Copies to: Augustin Steward MD MR #: [id number] Status: [facility] Collected: 01/15/22 Location: [facility] Received: 01/15/22 Diagnosis A. Colon, transverse, polypectomy: Tubular adenoma; no high grade dysplasia or carcinoma seen. B. Colon, descending, polypectomy: Tubular adenoma; no high grade dysplasia or carcinoma seen. C. Rectum, polypectomies (2): - Tubulovillous adenoma (large polyp); no high grade dysplasia or carcinoma seen. - Hyperplastic mucosal polyp. Clinical History Pre-Op Dx: Screening Post-Op Dx: Colon polyps, internal hemorrhoids Microscopic Description A-C. Microscopic sections reviewed. Material Received A: Transverse colon polyp B: Descending colon polyp C: Rectal polyps (2) Gross Description Received in three parts. Part A: Received in formalin labeled Transverse colon polyp is a 0.4 cm. in greatest dimension, glistening, semitranslucent, soft, montoya-pink, papular tissue fragment, which is submitted in toto in a single cassette labeled A. Part B: Received in formalin labeled Descending colon polyp are two glistening, semitranslucent, soft, montoya and montoya-pink, rectangular and papular tissue fragments, each measuring 0.3 cm. in greatest dimension, which are submitted in toto in a single cassette labeled B. Part C: Received in formalin labeled Rectal polyps is a 1.4 x 1.3 x 0.5 cm., velvety, congested, montoya- pink, pedunculated polyp with an attached 0.6 cm. in length and 0.6 cm. in diameter, montoya-pink stalk. The resected base is inked and the polyp is sectioned to reveal filiform, soft, montoya-pink cut surfaces and is entirely submitted in cassette C1. Also received are two glistening, semitranslucent, soft, montoya-pink, papular tissue fragments, each measuring 0.25 cm. in greatest dimension, which are submitted in toto in cassette C2. Patient: Judith Regalado Age/Sex: 51/F MR#: [id number] Page 1 of 2 mpression and Post Procedure Diagnosis: internal hemorrhoids Plan: High fiber diet leaflet Avoid straining at stool, epsom salts and sitz bath, anusol supps or cream Repeat Colonoscopy in 3-4 years due to prior hx of polyps or earlier if clinically indicated Above findings were reviewed with the patient and relevant handouts were provided if indicated. Assessment & Plan Assessment & Plan (1) Tubulovillous adenoma: Comment: 12/2021- no polyps Repeat 3 years Code(s): D36.9 - Benign neoplasm, unspecified site Plan Repeat asymptomatic colonoscopy 3-4 years for polyp surveillance All first-degree relatives begin colon screenings at age 40 Patient Instructions: Repeat asymptomatic colonoscopy 3-4 years for polyp surveillance All first-degree relatives begin colon screenings at age 40 Maintain high-fiber diet Avoid straining with hemorrhoid Coding Level of Care Code Est Pt Level 3 (35286) Diagnoses Tubulovillous adenoma D36.9 Time Spent (min) 20
[2023-06-15 14:59] VITALS: BP 142/74; PULSE 85; BMI 40.9
== END 2023-06-15 15:33 | disposition home or self-care (01) ==
PROVIDERS: PCP Internal Medicine; Visit Provider Physician Assistant
DX: D36.9 Benign neoplasm, unspecified site (principal)
CPT/HCPCS: 99213

== ENCOUNTER → 2023-06-15 14:54 | Outpatient (BNVA) | payer OTHER, SELFPAY | PROVIDERS: PCP Internal Medicine; Visit Provider Physician Assistant ==

== ENCOUNTER 2023-06-29 17:15 | Outpatient (AMB) | payer OTHER, MEDICAID, SELFPAY ==
[2023-06-29 17:18] VITALS: BP 142/80; PULSE 84; O2SAT 98; BMI 42.1
--- NOTE | 2023-06-29 17:18 | MHC.PC.OV ---
Vital Signs 06/29/23 17:18 06/29/23 17:40 Height 5 ft 5 in Weight 253 lb BMI 42.1 BP 142/80 H 140/80 H Blood Pressure Location Lt brachial Lt brachial Position Sitting Sitting Pulse 84 Pulse Source Pulse Oximeter Pulse Oximetry (%) 98 Oxygen Delivery Method Room Air Intake Visit Reasons: PE Intake Note: Patient here for a Physical exam, T-spot order request Credit Intern Required: No Accompanied by: Self / Same As Patient Allergies lisinopril Allergy (Intermediate, Verified 06/29/23 17:21) Rash paroxetine [Paxil] Adverse Reaction (Intermediate, Verified 06/29/23 17:21) weight gain Medication List - Last Reconciled 06/29/23 by Augustin Steward MD albuterol sulfate 90 mcg/actuation 2 puffs inhalation Q6H PRN folic acid 1 mg PO DAILY 90 days hydrocodone-acetaminophen 5-325 mg 1 tab PO TID PRN 30 days losartan 50 mg PO DAILY methylcellulose (laxative) (Citrucel) 500 mg PO TID tramadol 50 mg PO BID PRN 30 days Tobacco use date assessed: 03/25/23 Dental Screening Dental Screen Date: 06/29/23 Did you have a dental visit in the last 12 months?: Yes Did you have a dental problem in the last 6 months where you did not have access to dental care?: No Was dental information given to patient?: Patient has dentist HPI PE HPI Details 53-year-old morbidly obese female smoker with history of laparoscopic gastric banding hypercholesterolemia, diabetes mellitus, hypertension, lumbar degenerative disc disease coming in for physical exam. Last seen in March 2023. Patient has mammogram is up-to-date Pap smear is up-to-date colonoscopy is up-to-date May 2023. Review of the notes has seen gastroenterology has been advised repeat colonoscopy in 3 years. R ear deaf [facility] Medical History (Updated 06/29/23 @ 18:06 by Augustin Steward MD) Tubular adenoma Flu-like symptoms Trigger finger of left thumb Trigger finger of left hand Annual physical exam Breast cancer screening by mammogram Obesity (BMI 30-39.9) Vertigo Renal stones History of trigger finger Post-operative nausea and vomiting COVID-19 vaccine series completed Impaired hearing Depression Sinus infection Bronchitis Viral illness Sinus infection Hemorrhoid Colon cancer screening Annual physical exam Polycystic ovarian syndrome Deafness in right ear Migraine Sciatica, right side Generalized anxiety disorder Tobacco abuse Type 2 diabetes mellitus with hyperglycemia DDD (degenerative disc disease), lumbar Hypertension Surgical History (Updated 06/29/23 @ 17:35 by Augustin Steward MD) S/P trigger finger release Hx of colonoscopy History of back surgery H/O umbilical hernia repair History of ear surgery Hx of laparoscopic gastric banding Family History Paternal Grandfather Myocardial infarct Paternal Uncle Prostate cancer Alcohol abuse Paternal Aunt Skin cancer Maternal Aunt Breast cancer Social History (Updated 06/29/23 @ 17:43 by Augustin Steward MD) Housing: House Are you a primary nanny caregiver to a significant other at home: No Do you presently have visiting nurse or other home services: No Alcohol intake: current Alcohol intake frequency: a few times a month Patient Tobacco Use Status: Current everyday Tobacco user Tobacco use type: Cigarette Cigarette Packs Per Day: 1 Cigarettes Per Day: 20.0 Years Smoked: 30 e-Cigarette/Vaping Use: Never Used service: No Current occupational status: employed 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 Thomas Santacruz, Barbara Hernandez, Guille Zarate and colleagues, with an educational jori from [employer]. Review of Systems Const Denies poor appetite and Denies weakness Eyes Denies no additional complaints ENT Reports Normal hearing present, Denies dizziness, Denies nasal congestion, Denies tinnitus and Denies sore throat Card Denies chest pain, Denies syncope, Denies rapid heart rate and Denies dyspnea Resp Denies cough and Denies dyspnea GI Denies change in stool character, Reports constipation, Denies diarrhea, Denies nausea and Denies vomiting Denies urinary frequency, Denies difficulty voiding and Denies dysuria Neuro Reports Normal hearing present, Denies confusion, Denies dizziness, Denies syncope and Denies weakness Psych Denies confusion Physical exam (Primary Care) Vital Signs: Last Vital Signs Pulse 84 06/29/23 17:18 BP 142/80 H 06/29/23 17:18 Pulse Ox 98 06/29/23 17:18 Oxygen Delivery Method Room Air 06/29/23 17:18 BMI result Body Mass Index 42.1 Tobacco/Smoking Status: Tobacco use Status Tobacco use date assessed 03/25/23 06/29/23 17:24 Patient Tobacco Use Status Current everyday Tobacco 06/29/23 17:24 Tobacco use type Cigarette 06/29/23 17:24 e-Cigarette/Vaping Use Never Used 06/29/23 17:24 Thrive Assessment: Date of Thrive Assessment Date Thrive assessed 03/25/23 06/29/23 17:24 Const General: No confusion Orientation/consciousness: No confusion HENMT Head: Yes normocephalic Ears: external ears normal and TM's normal bilaterally Face and sinus: Yes normal facial exam Mouth: moist mucous membranes Throat: Yes tonsils normal Eyes Conjunctivae: conjunctivae normal Pupils: Equal, round and reactive pupils present and Pupil accommodation reflex normal Direct Ophthalmoscopy: normal light reflex Neck Neck: No lymphadenopathy Thyroid: Thyroid normal Chest Chest palpation & inspection: normal inspection of the chest Resp Effort & Inspection: normal respiratory effort and no audible wheezes Auscultation: clear to auscultation bilaterally, no crackles, no wheezes and lung sounds not diminished Cardio Rate: regular rate Rhythm: regular rhythm Peripheral pulses: radial pulses present and dorsalis pedis present GI Palpation (GI): no masses Auscultation: normal bowel sounds and normoactive bowel sounds Rectal Exam - Female: deferred Skin General skin exam: no rashes or lesions noted Rashes: no rashes Neuro General: No confusion Cranial nerves: Yes Equal, round and reactive pupils present and Yes Normal hearing present Cognition (Neuro): normal cognition Gait exam (Neuro): Normal gait present Motor exam (neuro): 5/5 motor strength present throughout Deep tendon reflexes (DTR's): Right brachioradialis reflex intensity grade: 2+, Left brachioradialis reflex intensity grade: 2+, Right patellar reflex intensity grade: 2+ and Left patellar reflex intensity grade: 2+ Extrem General: No edema Office Procedures Flu Questionnaire Does the patient have a severe egg allergy?: No Does the patient have severe life threatening allergies?: No Does the patient have a fever or illness today?: No Has the patient ever had Guillain-Shirley Syndrome?: No Has the patient ever had any past reaction to a flu shot?: No Immunizations flu vacc [id number] 6mos up(PF) 60 mcg(15 mcgx4)/0.5 mL IM syringe Performing Provider: Augustin Steward MD [facility] Administered by: MARISELA Golden on 06/29/23 17:29 Dose Route Admin Location Dispensed Lot Number Expiration Date NDC Latent Fingerprint Examiner 0.5 mL IM Left Deltoid 0.5 mL [id number] 03/20/24 35970-549-33 [employer] VIS Given Date VIS Provided VIS Publication Date 06/29/23 Single Vaccine 21 Eligibility Eligibility Date Funding Source Not VF Eligible 06/29/23 Private Assessment and Plan Assessment & Plan (1) Annual physical exam: Code(s): Z00.00 - Encounter for general adult medical examination without abnormal findings (2) Tubulovillous adenoma: Comment: 12/2021- no polyps Repeat 3 years Code(s): D36.9 - Benign neoplasm, unspecified site Plan: May 2023 last colonoscopy advised 3-4 years repeat (3) Obesities, morbid: Code(s): E66.01 - Morbid (severe) obesity due to excess calories Plan: Diet and exercise (4) Hypercholesterolemia: Code(s): E78.00 - Pure hypercholesterolemia, unspecified Plan: Avoid fried foods, chicken skin, eggs, butter margarine, pastries and meat. Be it pork or beef they have a lot of cholesterol LDL goal of less than 100 and triglyceride of less than 150 patient declined medication. Do diet and exercise (5) Hx of laparoscopic gastric banding: Comment: 2007- Code(s): Z98.84 - Bariatric surgery status Plan: Patient will be following up with Dr. Gifford for adjusting the lap band (6) Generalized anxiety disorder: Code(s): F41.1 - Generalized anxiety disorder Plan: Will start on sertraline 25 mg once a day (7) Tobacco abuse: Code(s): Z72.0 - Tobacco use Plan: Patient is strongly advised to stop smoking! (8) Type 2 diabetes mellitus with hyperglycemia: Comment: dx age 28-was on metformin age [id number] normalized s/p childbirth age 47-no longer on Rx-A1C 5.1 since 2017 Code(s): E11.65 - Type 2 diabetes mellitus with hyperglycemia Plan: Decrease the amount of carbohydrate intake, pasta, bread, rice and potatoes are all sugar and that is aside from all the sweet stuff, remember that fruits are good but they are Sweet also. Hemoglobin A1c goal of less than 6.26 May 2023 A1c is 7.4 patient would like to hold off from medication and will try to do diet and exercise (9) DDD (degenerative disc disease), lumbar: Comment: L4-5 disc bulge with surgery 23 years old Code(s): M51.36 - Other intervertebral disc degeneration, lumbar region Plan: Keep active and lose the weight (10) Hypertension: Code(s): I10 - Essential (primary) hypertension Plan: Continue with blood pressure medication. Decrease salt intake and exercise patient is on losartan 50 mg once a day. Blood pressure is elevated will adjust medication. (11) Recurrent depression: Comment: Declined referral for counseling Code(s): F33.9 - Major depressive disorder, recurrent, unspecified Plan: Starting on medication Orders: Orders Influenza [id number] Immunization Today Z23 - Encounter for immunization T Spot TB Today Z00.00 - Encounter for general adult medical examination without abnormal findings Medications: New sertraline 25 mg PO DAILY 30 tabs 4RF F33.9 - Major depressive disorder, recurrent, unspecified Changed From losartan 50 mg PO DAILY 90 caps 2RF I10 - Essential (primary) hypertension To losartan 100 mg PO DAILY 30 tabs 3RF I10 - Essential (primary) hypertension Coding Level of Care Code Est Pt Prev Care 40-64y(84393) Diagnoses Annual physical exam Z00.00 Tubulovillous adenoma D36.9 Obesities, morbid E66.01 Hypercholesterolemia E78.00 Hx of laparoscopic gastric banding Z98.84 Generalized anxiety disorder F41.1 Tobacco abuse Z72.0 Type 2 diabetes mellitus with hyperglycemia E11.65 DDD (degenerative disc disease), lumbar M51.36 Hypertension I10 Recurrent depression F33.9
[2023-06-29 17:40] VITALS: BP 140/80
== END 2023-06-29 18:05 | disposition home or self-care (01) ==
PROVIDERS: PCP Internal Medicine; Visit Provider Internal Medicine
DX: Z23 Encounter for immunization (principal); Z00.00 Encounter for general adult medical examination without abnormal findings; F33.9 Major depressive disorder, recurrent, unspecified; E11.65 Type 2 diabetes mellitus with hyperglycemia; I10 Essential (primary) hypertension
CPT/HCPCS: 90471; 90686; 99396

== ENCOUNTER 2023-08-24 10:17 | Outpatient (REF) | payer OTHER, SELFPAY ==
[2023-08-24 10:34] LABS: MANUAL DIFF FLAG NO
[2023-08-24 11:03] LABS: Basophils Percent Auto 0.5 % (0-2); Eosinophils Absolute Auto 0.1 X10*3/uL (0.0-0.4); Eosinophils Percent Auto 1.6 % (0-4); Hematocrit 44.2 % (37.0-47.0); Hemoglobin 14.6 g/dl (12.0-16.0); Imm Gran Abs Auto 0.04 X10*3/uL (0.00-0.03); Imm Gran Pct Auto 0.5 % (0.0-0.4); Lymphocytes Absolute Auto 2.7 X10*3/uL (1.2-4.9); Lymphocytes Percent Auto 32.9 % (20-40); Mean Corpuscular Hemoglobin 30.7 pg (27.0-33.0); Mean Corpuscular Volume 93.1 fL (80.0-98.0); Mean Platelet Volume 10.3 fL (9.4-12.3); Monocytes Absolute Auto 0.5 X10*3/uL (0.1-1.2); Monocytes Percent Auto 6.7 % (2-11); Neutrophils Absolute Auto 4.7 x10*3/uL (2.0-8.3); Neutrophils Percent Auto 57.8 % (45-73); Platelet Count 241 X10*3/uL (160-400); Red Blood Count 4.75 X10*6/uL (4.20-5.50); Red Cell Distribution Width 13.5 % (11.0-16.0); White Blood Count 8.1 X10*3/uL (4.8-10.8)
[2023-08-24 11:12] LABS: Estimated Average Glucose 180 mg/dL; Hemoglobin A1c % 7.9 % (<6.0)
[2023-08-24 11:33] LABS: Alanine Aminotransferase 20 U/L (0-31); Albumin Level 4.5 g/dL (3.5-5.0); Alkaline Phosphatase 91 U/L (39-117); Anion Gap 15 (12-20); Aspartate Amino Transferase 15 U/L (5-31); Bilirubin Total 0.4 mg/dL (0.0-1.0); Blood Urea Nitrogen 14 mg/dL (9-16); Calcium 9.8 mg/dL (8.4-10.2); Carbon Dioxide 25 mmol/L (22-29); Chloride 105 mmol/L (96-108); Estimated Glomerular Filt Rate > 60; Glucose Random 166 mg/dL (60-115); Potassium 4.6 mmol/L (3.3-5.1); Sodium 140 mmol/L (135-145); Total Protein 7.5 g/dL (6.5-8.0)
[2023-08-24 11:48] LABS: Free T4 (Free Thyroxine) 0.94 ng/dL (0.71-1.85); Thyroid Stimulating Hormone 1.63 uIU/mL (0.32-4.0)
[2023-08-24 12:03] LABS: Vitamin B12 752 pg/mL (200-900)
[2023-08-24 13:12] LABS: Creatinine Urine 74.66 mg/dL
[2023-08-26 16:13] LABS: TS Negative Control Passed; TS Panel A 0; TS Panel B 0; TS Positive Control Passed; TSpotTB Negative (Negative)
== END 2023-08-24 10:18 | disposition home or self-care (01) ==
LOC: HO.LAB 10:17
PROVIDERS: PCP Internal Medicine; Visit Provider Internal Medicine
DX: Z00.00 Encounter for general adult medical examination without abnormal findings (principal); E11.65 Type 2 diabetes mellitus with hyperglycemia
CPT/HCPCS: 36415; 80053; 82043; 82570; 82607; 82746; 83036; 84439; 84443; 85025; 86481

== ENCOUNTER 2023-09-29 08:49 | Outpatient (AMB) | payer BC, SELFPAY ==
[2023-09-29 09:28] VITALS: BP 142/72; PULSE 80; TEMP 36.7; O2SAT 98; BMI 42.3
--- NOTE | 2023-09-29 09:28 | MHC.OFFWIV ---
Intake Vital Signs 09/29/23 09:28 Height 5 ft 5 in Weight 254 lb 4 oz BMI 42.3 BP 142/72 H Blood Pressure Location Lt brachial Position Sitting Pulse 80 Pulse Source Pulse Oximeter Temp 98.1 F Temp Source Oral Pulse Oximetry (%) 98 Oxygen Delivery Method Room Air Intake Visit Reasons: EP Sinus Infection [phone] Intake Note: Patient has sinus infection symptoms for 2 weeks, affecting eyes, ears, throat. Patient Tobacco Use Status: Current everyday Tobacco user Allergies lisinopril Allergy (Intermediate, Verified 09/29/23 09:29) Rash paroxetine [Paxil] Adverse Reaction (Intermediate, Verified 09/29/23 09:29) weight gain Do you need a note to return to daycare/school/sports/work: No HPI HPI Comments History of Present Illness Details Patient is a 53-year-old female in today for a sick visit. She states that for the past several days she has developed symptoms of cough, sore throat, headache, sinus pressure, sore throat. She has extensive history of sinus infections. 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 Stride [id number] medicine with little relief. Denies chest pain shortness a breath, dizziness, numbness, nausea, vomiting, diarrhea. 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 ear Migraine Sciatica, right side Generalized anxiety disorder Tobacco abuse Type 2 diabetes mellitus with hyperglycemia DDD (degenerative disc disease), lumbar Hypertension Surgical History (Updated 06/29/23 @ 17:35 by Augustin Steward MD) S/P trigger finger release Hx of colonoscopy History of back surgery H/O umbilical hernia repair History of ear surgery Hx of laparoscopic gastric banding Family History Paternal Grandfather Myocardial infarct Paternal Uncle Prostate cancer Alcohol abuse Paternal Aunt Skin cancer Maternal Aunt Breast cancer Social History (Updated 06/29/23 @ 17:43 by Augustin Steward MD) Housing: House Are you a primary child care center assistant director to a significant other at home: No Do you presently have visiting nurse or other home services: No Alcohol intake: current Alcohol intake frequency: a few times a month Comment: UNSTEADY GAIT Patient Tobacco Use Status: Current everyday Tobacco user Tobacco use type: Cigarette Cigarette Packs Per Day: 1 Cigarettes Per Day: 20.0 Years Smoked: 30 e-Cigarette/Vaping Use: Never Used service: No Current occupational status: employed 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 Eyes: No Eye Pain, No Swelling, No Redness. Cardiovascular : No Chest Pain, No SOB, No Dyspnea on Exertion, No Orthopnea, No Edema, No Palpitations Respiratory : Admits Cough, No Sputum, Admits slight Wheezing Gastrointestinal : No Nausea, No Vomiting, No Diarrhea, No Constipation, No abdominal Pain, No Hematochezia, No Melena Neuro : No Weakness, No Numbness, No Dizziness, No Headache All other systems reviewed and are negative Physical Exam Vital Signs: Last Vital Signs Temp 98.1 F 09/29/23 09:28 Pulse 80 09/29/23 09:28 BP 142/72 H 09/29/23 09:28 Pulse Ox 98 09/29/23 09:28 Oxygen Delivery Method Room Air 09/29/23 09:28 BMI result Body Mass Index 42.3 Vital signs reviewed stable Const Other: Appearance: Alert.? Oriented X3.? No acute distress.? Eyes: Pupils equal, round and reactive to light.?No redness, no discharge. ENT: Pharynx erythema. Post nasal drip. TM intact, pearly avila. Positive for sinus tenderness. Neck: Normal inspection.? Neck supple.? CVS: Normal heart rate and rhythm.? Pulses normal.? Respiratory: No respiratory distress.? Slight wheeze upper lobes. Neuro: Oriented X 3.? No motor deficit.? No sensory deficit. CN 2-12 intact Assessment & Plan Assessment & Plan (1) Sinus infection: Comment: Will give Augmentin and prednisone. Patient to take medication as directed. Code(s): J32.9 - Chronic sinusitis, unspecified Qualifiers: Sinusitis location: unspecified location Chronicity: unspecified Qualified Code(s): J32.9 - Chronic sinusitis, unspecified Plan Patient will be given Augmentin to be taken as prescribed. Will also be given prednisone and benzonatate. Patient has been educated on worsening signs and symptoms when to return to the walk-in or when to present to the emergency room. Follow-up with PCP Orders: Orders SARS-CoV2/FLU/RSV Today J06.9 - Acute upper respiratory infection, unspecified Medications: New amoxicillin-pot clavulanate 875-125 mg 1 tab PO Q12H 20 tabs 0RF fluconazole (Diflucan) 200 mg PO DAILY 1 tab 0RF benzonatate 100 mg PO BID PRN 20 caps 0RF cough prednisone 50 mg PO DAILY 5 tabs 0RF Patient Instructions: Take your medications as prescribed. If you were prescribed antibiotics today, it is important that you take your medication to their entirety, do not skip any doses, do not finish them early. Follow-up with your primary care provider this week. Return to the emergency department with new or worsening symptoms. Such as fevers, chills, chest pain, shortness of breath, nausea, vomiting, dizziness, headache, vision changes, lethargy In case of emergency call 911 Coding Level of Care Code Est Pt Level 2 (34364) Diagnoses Sinusitis, unspecified chronicity, unspecified location J32.9 Sinusitis location: unspecified location Chronicity: unspecified Time Spent (min) 15
== END 2023-09-29 10:09 | disposition home or self-care (01) ==
PROVIDERS: PCP Internal Medicine; Visit Provider Nurse Practitioner Primary Care
DX: J32.9 Chronic sinusitis, unspecified (principal)
CPT/HCPCS: 99212

== ENCOUNTER 2023-09-29 11:26 | Outpatient (REF) | payer BC, SELFPAY ==
[2023-09-29 12:23] LABS: Influenza A PCR NEGATIVE (Negative); Influenza B PCR NEGATIVE (Negative); Resp Syncy Virus RNA Qual PCR NEGATIVE (Negative); SARS COV2 PCR INHOUSE NEGATIVE (Negative)
== END 2023-09-29 11:27 | disposition home or self-care (01) ==
LOC: HO.LNP 11:26
PROVIDERS: Visit Provider Nurse Practitioner Primary Care
DX: Z11.52 Encounter for screening for COVID-19 (principal); J06.9 Acute upper respiratory infection, unspecified
CPT/HCPCS: 0241U

== ENCOUNTER 2024-01-02 09:25 | Outpatient (AMB) | payer BC, SELFPAY ==
[2024-01-02 10:06] VITALS: BP 126/78; PULSE 95; TEMP 36.9; O2SAT 97; BMI 43.4
--- NOTE | 2024-01-02 10:06 | AM.OFFWIN_ITS ---
Intake Vital Signs 01/02/24 10:06 Height 5 ft 5 in Weight 261 lb BMI 43.4 BP 126/78 Blood Pressure Location Lt brachial Position Sitting Pulse 95 Pulse Source Pulse Oximeter Temp 98.4 F Temp Source Oral Pulse Oximetry (%) 97 Oxygen Delivery Method Room Air Intake Visit Reasons: EP Sinus infection Intake Note: Pt is here today c/o sinus pressure into RT ear Patient Tobacco Use Status: Current everyday Tobacco user Allergies lisinopril Allergy (Intermediate, Verified 01/02/24 10:11) Rash paroxetine [Paxil] Adverse Reaction (Intermediate, Verified 01/02/24 10:11) weight gain HPI EP Sinus infection HPI Details Patient is a 53-year-old female with 2 month complaint of right ear pressure, that radiates into her right sinus area. She does have a history of recurrent right otitis media, as well as chronic sinusitis. She reports that she had completed antibiotics in his short course of prednisone for the right ear a few months ago, and symptoms initially improved but then reoccurred and have persisted. She does get some short-term relief with [id number] cold and allergy medication. She has right side purulence phlegm. No reported fever chills, dizziness or weakness, malaise or myalgias, nausea vomiting or diarrhea, jaw pain, cough, shortness of breath or chest pain, or other significant associated symptoms PFSH Medical History Tubular adenoma Flu-like symptoms Trigger finger of left thumb Trigger finger of left hand Annual physical exam Breast cancer screening by mammogram Obesity (BMI 30-39.9) Vertigo Renal stones History of trigger finger Post-operative nausea and vomiting COVID-19 vaccine series completed Impaired hearing Depression Sinus infection Bronchitis Viral illness Sinus infection Hemorrhoid Colon cancer screening Annual physical exam Polycystic ovarian syndrome Deafness in right ear Migraine Sciatica, right side Generalized anxiety disorder Tobacco abuse Type 2 diabetes mellitus with hyperglycemia DDD (degenerative disc disease), lumbar Hypertension Surgical History S/P trigger finger release Hx of colonoscopy History of back surgery H/O umbilical hernia repair History of ear surgery Hx of laparoscopic gastric banding Family History Paternal Grandfather Myocardial infarct Paternal Uncle Prostate cancer Alcohol abuse Paternal Aunt Skin cancer Maternal Aunt Breast cancer Social History Housing: House Are you a primary housekeeper caregiver to a significant other at home: No Do you presently have visiting nurse or other home services: No Alcohol intake: current Alcohol intake frequency: a few times a month Comment: UNSTEADY GAIT Patient Tobacco Use Status: Current everyday Tobacco user Tobacco use type: Cigarette Cigarette Packs Per Day: 1 Cigarettes Per Day: 20.0 Years Smoked: 30 e-Cigarette/Vaping Use: Never Used service: No Current occupational status: employed 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 Cognitive needs: No Hearing needs: No Vision needs: Yes Female Reproductive History Menstrual Age of Menarche: 11 Review of Systems Const All systems reviewed & are unremarkable except as noted in HPI and below Physical Exam Vital Signs: Last Vital Signs Temp 98.4 F 01/02/24 10:06 Pulse 95 01/02/24 10:06 BP 126/78 01/02/24 10:06 Pulse Ox 97 01/02/24 10:06 Oxygen Delivery Method Room Air 01/02/24 10:06 BMI result Body Mass Index 43.4 Const General: cooperative, healthy appearing, comfortable, no acute distress, alert, awake, Physically active and well groomed; No anxious, diaphoretic, ill appearing, intoxicated appearing, poor hygiene or tired appearing Nutritional Appearance: average body habitus Limitations: no limitations HEENT Head: Yes normal to inspection, Yes normocephalic and Yes atraumatic Ears: hearing grossly normal bilaterally, external ears normal, EAC's normal and TM abnormal (Mild erythema) bulging, dull, erythematous, with fluid behind the TM and with loss of landmarks Face and sinus: Yes face symmetric and Yes Facial tenderness on exam of face and sinuses (Right ethmoid) Mouth: Normal oral and palatal mucosa present, lip normal and tongue normal Eyes General: appearance normal, both eyes and all related structures Resp Effort & Inspection: normal respiratory effort Skin Other: Good color, warm and dry Psych Appearance: grossly normal Mental Status: mental status grossly normal Speech and movement: Normal speech and movement present Affect: normal affect Attitude: cooperative Thought process: Normal thought process present Insight: Good insight present (Psych) Judgement: Good judgement present (Psych) Assessment & Plan Assessment & Plan (1) Right otitis media: Code(s): H66.91 - Otitis media, unspecified, right ear Qualifiers: Chronicity: chronic Suppurative otitis media location: unspecified location Otitis media type: suppurative Qualified Code(s): H66.3X1 - Other chronic suppurative otitis media, right ear Plan: Patient with right side ear pressure, and the TM looks hazy with mild erythema but no perforation. Suspect she has Eustachian tube dysfunction, and possibly this is underlying allergy induced or it was viral, however this started months ago, so viral testing not done today. She initially approved with a course of Augmentin and prednisone, but symptoms returned and have been persisting and worsening, so I will start her on cefdinir at this point, with short course of prednisone again. She does have a history of surgical repair to the right TM as a teenager, and reports an almost yearly. However she has had 3 episodes now within the past year, and she has tried to get in with her PCP to discuss ENT referral, but they are scheduled out. I told her that she can consider calling ENT on her own if her insurance allows it, which she will look into. She also is going to call on Thursday to see if she can change her PCP to this office. Either way, I can not refer her to ENT through the walk-in, and she is aware of this. She knows to follow up if symptoms persist or worsen in the meantime, or go to the emergency department with worrisome symptoms. Medications: New cefdinir 300 mg PO BID 10 days 20 caps 0RF prednisone 40 mg (2 x 20 mg) PO DAILY 5 days 10 tabs 0RF Coding Level of Care Code Est Pt Level 4 (68965) Diagnoses Chronic suppurative otitis media of right ear, unspecified otitis media location H66.3X1 Chronicity: chronic Suppurative otitis media location: unspecified location Otitis media type: suppurative
== END 2024-01-02 12:32 | disposition home or self-care (01) ==
PROVIDERS: PCP Internal Medicine; Visit Provider Physician Assistant Medical
DX: H66.3X1 Other chronic suppurative otitis media, right ear (principal)
CPT/HCPCS: 99214

== ENCOUNTER 2024-01-14 15:51 | Outpatient (REF) | payer BC, SELFPAY | END 2024-01-14 15:52 | disposition home or self-care (01) | LOC: HO.MAMMO 15:51 | PROVIDERS: PCP Internal Medicine; Visit Provider Internal Medicine | DX: Z12.31 Encounter for screening mammogram for malignant neoplasm of breast (principal) | CPT/HCPCS: 77063; 77067 ==

== ENCOUNTER → 2024-01-14 16:00 | Outpatient (BNV) | payer BC, SELFPAY | PROVIDERS: PCP Internal Medicine; Visit Provider Radiology Diagnostic Radiology | DX: Z12.31 Encounter for screening mammogram for malignant neoplasm of breast (principal) | CPT/HCPCS: 77063; 77067 ==

== ENCOUNTER 2024-02-16 16:36 | Outpatient (AMB) | payer BC, SELFPAY ==
--- NOTE | 2024-02-16 16:41 | A.OFFPC_ITS ---
Vital Signs 3 02/16/24 16:46 Height 5 ft 5 in Weight 118.104 kg BMI 43.3 BP 122/72 Blood Pressure Location Lt brachial Position Sitting Pulse 94 Pulse Source Pulse Oximeter Pulse Oximetry (%) 98 Oxygen Delivery Method Room Air Intake Visit Reasons: Med Follow Up Intake Note: Patient is here to follow up on med review, DM, ARASH. C.O.D. Clerk Required: No Contract Programmer: Not Required per policy Accompanied by: Self / Same As Patient Allergies lisinopril Allergy (Intermediate, Verified 02/16/24 16:45) Rash paroxetine [Paxil] Adverse Reaction (Intermediate, Verified 02/16/24 16:45) weight gain Medication List - Last Reconciled 02/16/24 by Augustin Steward MD albuterol sulfate 90 mcg/actuation 2 puffs inhalation Q6H PRN fluconazole 150 mg PO Q3D 2 doses fluticasone propionate 50 mcg/actuation (Flonase Allergy Relief) 2 sprays intranasal DAILY folic acid 1 mg PO DAILY 90 days hydrocodone-acetaminophen 5-325 mg 1 tab PO TID PRN 30 days losartan 100 mg PO DAILY tramadol 50 mg PO BID PRN 30 days Tobacco use date assessed: 02/16/24 Dental Screening Dental Screen Date: 02/16/24 Did you have a dental visit in the last 12 months?: Yes Did you have a dental problem in the last 6 months where you did not have access to dental care?: No Was dental information given to patient?: Patient has dentist HPI Med Follow Up 2 HPI0 Details 53-year-old morbidly obese female smoker with a history of hypercholesterolemia with generalized anxiety disorder, diabetes mellitus lumbar degenerative disc disease hypertension recurrent depression status post laparoscopic gastric banding last seen in 07/10/2023. Patient's mammogram is up-to-date noted urgent care visit 01/09/2024 for sinus infection and treated with cefdinir and prednisone for right otitis media. Patient had blood test in August showing an hemoglobin A1c of 7.9 cholesterol tested in May elevated more than 100.. 2 years ago - having low back pain - still - states cracked heel.still smoking a pack a day- [facility] Medical History Tubular adenoma Flu-like symptoms Trigger finger of left thumb Trigger finger of left hand Annual physical exam Breast cancer screening by mammogram Obesity (BMI 30-39.9) Vertigo Renal stones History of trigger finger Post-operative nausea and vomiting COVID-19 vaccine series completed Impaired hearing Depression Sinus infection Bronchitis Viral illness Sinus infection Hemorrhoid Colon cancer screening Annual physical exam Polycystic ovarian syndrome Deafness in right ear Migraine Sciatica, right side Generalized anxiety disorder Tobacco abuse Type 2 diabetes mellitus with hyperglycemia DDD (degenerative disc disease), lumbar Hypertension Surgical History S/P trigger finger release Hx of colonoscopy History of back surgery H/O umbilical hernia repair History of ear surgery Hx of laparoscopic gastric banding Family History Paternal Grandfather Myocardial infarct Paternal Uncle Prostate cancer Alcohol abuse Paternal Aunt Skin cancer Maternal Aunt Breast cancer Social History (Updated 02/16/24 @ 16:49 by MARISELA King) Housing: House Are you a primary wound care rn to a significant other at home: No Do you presently have visiting nurse or other home services: No Alcohol intake: current Alcohol intake frequency: holidays/special occasions only Comment: UNSTEADY GAIT Patient Tobacco Use Status: Current everyday Tobacco user Tobacco use type: Cigarette Cigarette Packs Per Day: 1 Cigarettes Per Day: 20.0 Years Smoked: 30 e-Cigarette/Vaping Use: Never Used Second Hand Smoke Exposure: Yes service: No Current occupational status: employed 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 1. Little interest or pleasure in doing things: nearly every day 2. Feeling down, depressed, or hopeless: nearly every day 3. Trouble falling or staying asleep, or sleeping too much: nearly every day 4. Feeling tired or having little energy: nearly every day 5. Poor appetite or overeating: nearly every day 6. Feeling bad about yourself - or that you are a failure or have let yourself or your family down: more than half the days 7. Trouble concentrating on things, such as reading the newspaper or watching television: not at all 8. Moving or speaking so slowly that other people could have noticed. Or the opposite - being so fidgety or restless that you have been moving around a lot more than usual: not at all 9. Thoughts that you would be better off or of hurting yourself in some way: not at all Total score: 17 Depression Screening Interpretation: Positive Depression Screening Done: Yes Source: Developed by Drs. Thomas Santacruz, Barbara Hernandez, Guille Zarate and colleagues, with an educational jori from [employer]. Thrive Questionnaire Date Thrive assessed: 02/16/24 I am a: Patient What is your living situation today?: I have a steady place to live Within the past 12 months, did the food you bought not last and you didn't have the money to get more?: Never true Within the past 12 months, did you worry whether your food would run out before you got money to buy more?: Never true Do you have trouble paying for medicines?: No Do you have trouble getting transportation to medical appointments?: No Do you have trouble paying your heating and electricity bill?: No Do you have trouble taking care of your child, family member or friend?: No Do you have trouble with day-to-day activities such as bathing, preparing meals, shopping, managing finances, etc.?: No Are you currently unemployed and looking for a job?: No Are you interested in more education?: No Currently or been in a relationship where the following occur: no concerns reported THRIVE Score: 0 AUDIT C Alcohol Use Questionnaire (AUDIT-C) 1. How often do you have a drink containing alcohol?: Monthly or less 2. How many drinks containing alcohol do you have on a typical day when you are drinking?: 1 or 2 Total Score: 1 ARASH-7 AMB Questionnaire ARASH-7 Date ARASH - 7 assessed: 02/16/24 Feeling nervous, anxious, or on edge: 1 = Several days Not being able to stop or control worryin = Nearly every day Worrying too much about different things: 3 = Nearly every day Trouble relaxin = Several days Being so restless that it is hard to sit still: 0 = Not at all Becoming easily annoyed or irritable: 3 = Nearly every day Feeling afraid as if something awful might happen: 2 = More than half the days Total ARASH-7 score (0-4 normal; 5-9 mild; 10-14 moderate; 15-21 severe): 13 Source: Developed by Drs. Thomas Santacruz, Barbara Hernandez, Guille Zarate and colleagues, with an educational jori from [employer]. Physical exam (Primary Care) Vital Signs: Last Vital Signs Pulse 94 02/16/24 16:46 BP 122/72 02/16/24 16:46 Pulse Ox 98 02/16/24 16:46 Oxygen Delivery Method Room Air 02/16/24 16:46 BMI result Body Mass Index 43.3 Tobacco/Smoking Status: Tobacco use Status Tobacco use date assessed 02/16/24 02/16/24 16:54 Patient Tobacco Use Status Current everyday Tobacco 02/16/24 16:49 Tobacco use type Cigarette 02/16/24 16:49 e-Cigarette/Vaping Use Never Used 02/16/24 16:49 PHQ-9: PHQ-9 Score PHQ-9: Total score 17 02/16/24 17:02 Depression Screening Interpretation: Positive Thrive Assessment: Date of Thrive Assessment Date Thrive assessed 02/16/24 02/16/24 16:54 Currently or been in a relationship where the following occur: no concerns reported Const General: alert; No acute distress Eyes Conjunctivae: conjunctivae normal Resp Auscultation: clear to auscultation bilaterally Cardio Rate: regular rate Rhythm: regular rhythm GI Inspection: Yes normal to inspection Extrem General: Yes normal to inspection and No edema Ankle/foot/toe images: 2 1. 2 cm callous noted with a slit opening of the skin Results AMB Hemoglobin A1c 2 AMB Hemoglobin A1c 10.9 % Last Edit by MARISELA King on 02/16/24 17:0 2 Immunizations tetanus-diphtheria toxoids-Td 2 Lf unit-2 Lf unit/0.5 mL IM suspension Performing Provider: Augustin Steward MD Per[facility] Administered by: MARISELA Golden on 02/16/24 17:21 2 Dose Route Admin Location Dispensed Lot Number Expiration Date NDC Ultrasound Coordinator 0.5 mL IM Left Deltoid 0.5 mL [id number] 10/31/24 [address]-2 [employer] 2 VIS Given Date VIS Provided VIS Publication Date 02/16/24 Single Vaccine 21 Eligibility Eligibility Date Funding Source Not VFC Eligible 02/16/24 State funds Results Reviewed Results Reviewed: Laboratory Last Values Hgb A1c (Clinic) 10.9 % (4.0-6.0) H 02/16/24 16:41 Assessment and Plan Assessment & Plan (1) Type 2 diabetes mellitus with hyperglycemia: Comment: dx age 28-was on metformin age [id number] normalized s/p childbirth age 47-no longer on Rx-A1C 5.1 since 2017 Code(s): E11.65 - Type 2 diabetes mellitus with hyperglycemia Plan: Decrease the amount of carbohydrate intake, pasta, bread, rice and potatoes are all sugar and that is aside from all the sweet stuff, remember that fruits are good but they are Sweet also. Hemoglobin A1c goal of less than 6.5. Patient on no med. START on meds reminded DM (2) Tobacco abuse: Code(s): Z72.0 - Tobacco use Plan: Patient is strongly advised to stop smoking!!! (3) Hypertension: Code(s): I10 - Essential (primary) hypertension Plan: Continue with blood pressure medication. Decrease salt intake and exercise on losartan 100 mg once a day (4) Hypercholesterolemia: Code(s): E78.00 - Pure hypercholesterolemia, unspecified Plan: Avoid fried foods, chicken skin, eggs, butter margarine, pastries and meat. Be it pork or beef they have a lot of cholesterol patient needs to have blood work LDL goal of less than 100 and triglyceride of less than 150. RETEST!!! (5) Hx of laparoscopic gastric banding: Comment: 2007- Code(s): Z98.84 - Bariatric surgery status Plan: Continue to follow-up with bariatric surgeon (6) Generalized anxiety disorder: Code(s): F41.1 - Generalized anxiety disorder Plan: Start on sertraline (7) DDD (degenerative disc disease), lumbar: Comment: L4-5 disc bulge with surgery 23 years old Code(s): M51.36 - Other intervertebral disc degeneration, lumbar region Plan: Presently on tramadol active and lose the weight (8) Vaginal yeast infection: Code(s): B37.31 - Acute candidiasis of vulva and vagina Plan: antifungal sent (9) Heel callus: Code(s): L84 - Corns and callosities Plan: referral to podiatry Orders: Orders 2 AMB Hemoglobin A1c Today E11.65 - Type 2 diabetes mellitus with hyperglycemia Free T4 (Free Thyroxine) Today E11.65 - Type 2 diabetes mellitus with hyperglycemia Vitamin B12 and Folate Today E11.65 - Type 2 diabetes mellitus with hyperglycemia Vitamin D 25-OH Total Today E11.65 - Type 2 diabetes mellitus with hyperglycemia Td State Immunization Today Z23 - Encounter for immunization Complete Blood Count Auto Diff Today E11.65 - Type 2 diabetes mellitus with hyperglycemia Comprehensive Met. Panel Today E11.65 - Type 2 diabetes mellitus with hyperglycemia Thyroid Stimulating Hormone Today E11.65 - Type 2 diabetes mellitus with hyperglycemia Creatinine Urine Today E11.65 - Type 2 diabetes mellitus with hyperglycemia Microalbumin, Random (w Creat) Today E11.65 - Type 2 diabetes mellitus with hyperglycemia Referrals 2 Lung Cancer Screening Referral Z72.0 - Tobacco use Podiatry Referral L84 - Corns and callosities Medications: New 2 fluticasone propionate 50 mcg/actuation (Flonase Allergy Relief) administer into each nostril 2 sprays intranasal DAILY 16 grams 4RF fluconazole 150 mg PO Q3D 2 tabs 0RF 2 doses B37.31 - Acute candidiasis of vulva and vagina tirzepatide (Mounjaro) 2.5 mg (0.5 mL) subcut QWEEK 2 mL 0RF 4 weeks E11.65 - Type 2 diabetes mellitus with hyperglycemia tetanus-diphtheria toxoids-Td 0.5 mL IM ONCE 0.5 mL 0RF Z23 - Encounter for immunization metformin 500 mg PO BIDWMEAL 60 tabs 2RF E11.65 - Type 2 diabetes mellitus with hyperglycemia Refilled 2 sertraline 25 mg PO DAILY 30 tabs 4RF F33.9 - Major depressive disorder, recurrent, unspecified Discontinued 2 hydrocodone-acetaminophen 5-325 mg Partial Fill upon patient request. Discontinued Reason: Doctor's Order 1 tab PO TID 30 days PRN 30 tabs 0RF pain M51.36 - Other intervertebral disc degeneration, lumbar region cefdinir Discontinued Reason: Doctor's Order 300 mg PO BID 10 days 20 caps 0RF prednisone Discontinued Reason: Ancillary Entered New Order 40 mg (2 x 20 mg) PO DAILY 5 days 10 tabs 0RF Coding Level of Care Code Est Pt Level 4 (06466) Diagnoses Type 2 diabetes mellitus with hyperglycemia E11.65 Tobacco abuse Z72.0 Hypertension I10 Hypercholesterolemia E78.00 Hx of laparoscopic gastric banding Z98.84 Generalized anxiety disorder F41.1 DDD (degenerative disc disease), lumbar M51.36 Vaginal yeast infection B37.31 Heel callus L84
[2024-02-16 16:46] VITALS: BP 122/72; PULSE 94; O2SAT 98; BMI 43.3
== END 2024-02-16 17:19 | disposition home or self-care (01) ==
PROVIDERS: PCP Internal Medicine; Visit Provider Internal Medicine
DX: E11.65 Type 2 diabetes mellitus with hyperglycemia (principal); Z72.0 Tobacco use; I10 Essential (primary) hypertension; E78.00 Pure hypercholesterolemia, unspecified; Z98.84 Bariatric surgery status; F41.1 Generalized anxiety disorder; M51.36 Other intervertebral disc degeneration, lumbar region; B37.31 Acute candidiasis of vulva and vagina; L84 Corns and callosities; Z23 Encounter for immunization
CPT/HCPCS: 83036; 90471; 90714; 99214

== ENCOUNTER 2024-02-19 09:36 | Outpatient (AMB) | payer BC, SELFPAY ==
[2024-02-19 10:07] VITALS: BP 130/74; PULSE 84; O2SAT 98; BMI 42.9
--- NOTE | 2024-02-19 10:07 | AM.OFFWIN_ITS ---
Intake Vital Signs 02/19/24 10:07 Height 5 ft 5 in Weight 258 lb BMI 42.9 BP 130/74 Blood Pressure Location Lt brachial Position Sitting Pulse 84 Pulse Source Pulse Oximeter Pulse Oximetry (%) 98 Oxygen Delivery Method Room Air Intake Visit Reasons: Est/ right arm inj (lobby) Intake Note: pt is here today for rt arm injury that happened last night at about 5:30 and is having issues w/ROM. Patient Tobacco Use Status: Current everyday Tobacco user Allergies lisinopril Allergy (Intermediate, Verified 02/19/24 10:12) Rash paroxetine [Paxil] Adverse Reaction (Intermediate, Verified 02/19/24 10:12) weight gain Do you need a note to return to daycare/school/sports/work: No HPI HPI Comments History of Present Illness Details She presents to office with R arm pain There was a broken piece of concrete and fell landing on her R hand/arm She hit her hand, R elbow and knee Knee not bothersome' just scratched up Occured 530 last night Scratch to R elbow and hand R hand dominant Pain mostly in forearm 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 Better with res t Took motrin with some relief. Iced last night PFSH Medical History Tubular adenoma Flu-like symptoms Trigger finger of left thumb Trigger finger of left hand Annual physical exam Breast cancer screening by mammogram Obesity (BMI 30-39.9) Vertigo Renal stones History of trigger finger Post-operative nausea and vomiting COVID-19 vaccine series completed Impaired hearing Depression Sinus infection Bronchitis Viral illness Sinus infection Hemorrhoid Colon cancer screening Annual physical exam Polycystic ovarian syndrome Deafness in right ear Migraine Sciatica, right side Generalized anxiety disorder Tobacco abuse Type 2 diabetes mellitus with hyperglycemia DDD (degenerative disc disease), lumbar Hypertension Surgical History S/P trigger finger release Hx of colonoscopy History of back surgery H/O umbilical hernia repair History of ear surgery Hx of laparoscopic gastric banding Family History Paternal Grandfather Myocardial infarct Paternal Uncle Prostate cancer Alcohol abuse Paternal Aunt Skin cancer Maternal Aunt Breast cancer Social History (Updated 02/16/24 @ 16:49 by MARISELA King) Housing: House Are you a primary urgent care physician assistant to a significant other at home: No Do you presently have visiting nurse or other home services: No Alcohol intake: current Alcohol intake frequency: holidays/special occasions only Comment: UNSTEADY GAIT Patient Tobacco Use Status: Current everyday Tobacco user Tobacco use type: Cigarette Cigarette Packs Per Day: 1 Cigarettes Per Day: 20.0 Years Smoked: 30 e-Cigarette/Vaping Use: Never Used Second Hand Smoke Exposure: Yes service: No Current occupational status: employed 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 Cognitive needs: No Hearing needs: No Vision needs: Yes Female Reproductive History Menstrual Age of Menarche: 11 Review of Systems Const Denies chills and Denies fever(s) ENT Denies dizziness Card Denies syncope Musc Reports arthralgias, Reports joint swelling, Denies numbness, Reports stiffness and Denies tingling Skin/Breast Reports skin swelling and Reports wounds Neuro Denies dizziness, Denies syncope, Denies focal weakness, Denies numbness and Denies tingling Physical Exam Vital Signs: Last Vital Signs Pulse 84 02/19/24 10:07 BP 130/74 02/19/24 10:07 Pulse Ox 98 02/19/24 10:07 Oxygen Delivery Method Room Air 02/19/24 10:07 BMI result Body Mass Index 42.9 General: Non-toxic, NAD. Speaking full sentences. Skin: Warm dry throughout. + edema to R elbow. There is a linear scabbed wound approx 2cm without surrounding erythema, discharge drainage or warmth. + superficial abrasion to R palm without foreign body or surrounding erythema or discharge. Eye: EOMI Respiratory: No respiratory distress Cardiac: Radial pulse intact RUE MSK: No bony tenderness to palpation of R calvicle, R AC joint or lateral humeral head. + tenderness to palpation diffusely over R elbow. + flexion to 90 degrees but decreased extension. No tenderness to palpation of mid/distal ulnar/radius. No snuffbox tenderness but + tenderness diffusly of wrist/carpal bones. + full ROM flexion/extension of digits R hand without tenderness to palpation of digits or metacarpals. Neurology: A/O. No aphasia or facial droop. Gait without abnormality Psych: Good mood and affect Office Procedures Casting/Splints Details: verbal consent obtained. Neurovascular intact pre and post application. Pt tolerared well. 4x15 orthoglass splint applied 30121-Maqo arm splint application Procedure code (CPT) selection complete Assessment & Plan Assessment & Plan (1) Arm pain: Code(s): M79.603 - Pain in arm, unspecified Qualifiers: Laterality: right Qualified Code(s): M79.601 - Pain in right arm Plan: Patient seen and evaluated. Xray R wrist: I viewed as negative Xray R elbow: + fx Pt placed in orthoglass splint; see procedure Given ortho referral Pass controlled substance shows tramadol script send for 20 tablets filled 02/16/24 Patient gave verbal understanding and had no additional questions or concerns at time of discharge All questions answered (2) Elbow fracture, right: Code(s): S42.401A - Unspecified fracture of lower end of right humerus, initial encounter for closed fracture Qualifiers: Encounter type: initial encounter Fracture type: closed Qualified Code(s): S42.401A - Unspecified fracture of lower end of right humerus, initial encounter for closed fracture Plan: Will see orthopedics. splint and sling applied Discussed splint care instructions All questions answered at time of d/c Orders: Orders XR wrist RT min 3V Today M79.603 - Pain in arm, unspecified XR elbow RT min 3V Today M79.603 - Pain in arm, unspecified Referrals Orthopedics Referral S42.401A - Unspecified fracture of lower end of right humerus, initial encounter for closed fracture Medications: New tramadol 50 mg PO BID PRN 10 tabs 0RF pain Coding Level of Care Code Est Pt Level 3 (50668) Diagnoses Pain of right upper extremity M79.601 Laterality: right Closed fracture of right elbow, initial encounter S42.401A Encounter type: initial encounter Fracture type: closed CPT Codes Splint - CPT: 98989-Fgok arm splint application ([id number])
== END 2024-02-19 12:45 | disposition home or self-care (01) ==
PROVIDERS: PCP Internal Medicine; Visit Provider Physician Assistant
DX: S42.401A Unspecified fracture of lower end of right humerus, initial encounter for closed fracture (principal); M79.601 Pain in right arm
CPT/HCPCS: 99213

== ENCOUNTER 2024-02-19 10:25 | Outpatient (REF) | payer BC, SELFPAY ==
--- NOTE | ~2024-02-19 | XR_ITS ---
EXAMINATION: XR ELBOW, RIGHT CLINICAL INFORMATION: Pain COMPARISON: None available. TECHNIQUE: AP, lateral, and oblique views of the right elbow. FINDINGS: There is intra-articular fracture involving the right radial head without fragment displacement and with joint effusion. XR/XR elbow RT min 3V IMPRESSION: Radial head fracture
--- NOTE | ~2024-02-19 | XR_ITS ---
EXAMINATION: XR WRIST, RIGHT CLINICAL INFORMATION: Pain COMPARISON: Right hand from 06/11/2017 TECHNIQUE: PA, lateral, and oblique views of the right wrist. FINDINGS: The bones and soft tissues are normal. No fracture. Alignment is anatomic with normal joint spaces. No erosions or abnormal soft tissue calcifications. XR/XR wrist RT min 3V IMPRESSION: Normal right wrist.
== END 2024-02-19 10:26 | disposition home or self-care (01) ==
LOC: HO.HMGCX 10:25
PROVIDERS: PCP Internal Medicine; Visit Provider Physician Assistant
DX: M79.601 Pain in right arm (principal)
CPT/HCPCS: 73080; 73110

== ENCOUNTER 2024-02-22 10:00 | Outpatient (AMB) | payer BC, SELFPAY ==
--- NOTE | 2024-02-22 10:10 | MHC.OFFVIS ---
Intake Visit Reasons: FC - right elbow injury Intake Note: Judith is a 53 year old right hand dominant female who presents today for a evaluation of her right elbow injury, DOI 02/18/24. Patient reports she was at her daughters event and there was broken cement on the ground which lead her to trip on it and fall on her right arm. Currently she is in a lot of pain near her elbow and a little bit in her wrist. . Allergies lisinopril Allergy (Intermediate, Verified 02/22/24 10:14) Rash paroxetine [Paxil] Adverse Reaction (Intermediate, Verified 02/22/24 10:14) weight gain HPI HPI FC - right elbow injury: Details: 53-year-old right hand dominant female who presents in the office today, as a new patient, for an evaluation of right elbow pain. [facility]24 status post a fall landing on her right upper extremity on 02/18/2024, hitting her right hand, elbow, and knee. X-rays were obtained. She was placed in a long arm splint and prescribed tramadol 50 mg PO BID PRN with 10 tablets for pain. While in the office today the patient reports she was at an event for her daughter when she tripped over broken cement causing her to fall on her right upper extremity. She reports most of her pain is at the right elbow. Patient reports a slight pain in her right wrist status post the fall on 02/18/2024. 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 ear Migraine Sciatica, right side Generalized anxiety disorder Tobacco abuse Type 2 diabetes mellitus with hyperglycemia DDD (degenerative disc disease), lumbar Hypertension Surgical History S/P trigger finger release Hx of colonoscopy History of back surgery H/O umbilical hernia repair History of ear surgery Hx of laparoscopic gastric banding Family History Paternal Grandfather Myocardial infarct Paternal Uncle Prostate cancer Alcohol abuse Paternal Aunt Skin cancer Maternal Aunt Breast cancer Social History Housing: House Are you a primary healthcare market consultant to a significant other at home: No Do you presently have visiting nurse or other home services: No Alcohol intake: current Alcohol intake frequency: holidays/special occasions only Comment: UNSTEADY GAIT Patient Tobacco Use Status: Current everyday Tobacco user Tobacco use type: Cigarette Cigarette Packs Per Day: 1 Cigarettes Per Day: 20.0 Years Smoked: 30 e-Cigarette/Vaping Use: Never Used Second Hand Smoke Exposure: Yes service: No Current occupational status: employed 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 Cognitive needs: No Hearing needs: No Vision needs: Yes Female Reproductive History Menstrual Age of Menarche: 11 Review of Systems Const All systems reviewed & are unremarkable except as noted in HPI and below Physical Exam Const General: cooperative and no acute distress Orientation/consciousness: patient oriented x3 Resp Effort & Inspection: normal respiratory effort and able to speak in complete sentences Cardio Peripheral pulses: Peripheral pulses 2+ throughout Skin General skin exam: no rashes or lesions noted Neuro General: patient oriented x3 Extrem Other: Right elbow: Superficial abrasion roughly just distal to the olecranon. The abrasion is 2 inches in length and 1 inch wide. No surrounding erythema or drainage. No signs of infection. Healthy eschar tissue covers the area. Tenderness to palpation over the radial head. Able to perform full extension. Lacking about 10 degrees of full flexion. Able to pronate and supinate with mild pain. Right hand: Normal to inspection. Superficial abrasion on the palmar aspect of the proximal hand. No surrounding erythema or drainage. No signs of infection. No ecchymosis or edema. No tenderness over the anatomical snuff box or the scaphoid tubercle. Able to perform full finger flexion, extension, abduction, adduction, finger cross, okay sign, and thumbs up without deficit. Able to make a closed fist. Sensation intact. Capillary refill is brisk. Radial pulse intact. Office Procedures Fracture Care Fracture Billing Code: Fracture Billing Code Assessment & Plan Assessment & Plan (1) Right radial head fracture: Code(s): S52.121A - Displaced fracture of head of right radius, initial encounter for closed fracture Category: Medical Qualifiers: Encounter type: initial encounter Fracture alignment: nondisplaced Fracture type: closed Qualified Code(s): S52.124A - Nondisplaced fracture of head of right radius, initial encounter for closed fracture Plan Ms. Regalado is a 53-year-old right hand dominant female who presents in the office today, as a new patient, for an evaluation of right elbow pain. [facility]24 status post a fall landing on her right upper extremity on 02/18/2024, hitting her right hand, elbow, and knee. X-rays were obtained. She was placed in a long arm splint and prescribed tramadol 50 mg PO BID PRN with 10 tablets for pain. While in the office today the patient reports she was at an event for her daughter when she tripped over broken cement causing her to fall on her right upper extremity. She reports most of her pain is at the right elbow. Patient reports a slight pain in her right wrist status post the fall on 02/18/2024. The patient will remain in the sling for comfort. She was instructed to refrain from lifting, pushing, pulling, or carrying anything greater than a coffee cup or cell phone. We discussed there is a possibility of losing the last 10 degrees of extension with this type of injury. Follow-up will be in 4 weeks with repeat x-rays or sooner if needed. X-rays of the right elbow, obtained on 02/19/2024, revealed: Radial head fracture. Patient Instructions: Scribed by Joanna Carter registered medical transcriptionist, for Thalia Pantoja PA-C on 02/22/2024 at 10:08 am, EST. Coding Level of Care Code Est Pt Level 4 (22265) Diagnoses Closed nondisplaced fracture of head of right radius, initial encounter S52.124A Encounter type: initial encounter Fracture alignment: nondisplaced Fracture type: closed CPT Codes Fracture Care - Fracture Billing Code: Fracture Billing Code ([id number])
== END 2024-02-22 13:17 | disposition home or self-care (01) ==
PROVIDERS: PCP Internal Medicine; Visit Provider Physician Assistant
DX: S52.124A Nondisplaced fracture of head of right radius, initial encounter for closed fracture (principal)
CPT/HCPCS: 99214

== ENCOUNTER → 2024-02-22 10:00 | Outpatient (BNVA) | payer BC, SELFPAY | PROVIDERS: PCP Internal Medicine; Visit Provider Physician Assistant ==

== ENCOUNTER 2024-03-29 11:05 | Outpatient (REF) | payer BC, SELFPAY ==
--- NOTE | ~2024-03-29 | XR_ITS ---
EXAMINATION: XR ELBOW, RIGHT CLINICAL INFORMATION: Pain in elbow. COMPARISON: None available. TECHNIQUE: February 19, 2024 of the right elbow. FINDINGS: Joint effusion. Redemonstration of radial head fracture with mild displacement and impaction, more conspicuous on the current exam. Possible ossific/calcific fragments adjacent to the radial head. XR/XR elbow RT min 3V IMPRESSION: Redemonstration of radial head fracture with mild displacement and impaction, more conspicuous on the current exam. Possible ossific/calcific fragments adjacent to the radial head.
== END 2024-03-29 11:06 | disposition home or self-care (01) ==
LOC: HO.HOSX 11:05
PROVIDERS: Visit Provider Physician Assistant
DX: S52.121A Displaced fracture of head of right radius, initial encounter for closed fracture (principal); W08.XXXA Fall from other furniture, initial encounter; Y93.9 Activity, unspecified; Y92.9 Unspecified place or not applicable; Y99.9 Unspecified external cause status
CPT/HCPCS: 73080

== ENCOUNTER 2024-03-29 13:33 | Outpatient (AMB) | payer BC, SELFPAY ==
--- NOTE | 2024-03-29 13:45 | MHC.OFFVIS ---
Vital Signs 03/29/24 13:56 Height 5 ft 5 in Weight 258 lb BMI 42.9 Intake Visit Reasons: OV-right elbow injury-w/xray Intake Note: Judith is a 53 year old right hand dominant female who presents today for a evaluation of her right elbow injury, DOI 02/18/24. Patient reports she probably re injured her right elbow when she feel and braced her fall with her hands in front of her which happened on 03/14/24, then on the she was sitting on a cooler she didn't know it had wheels and it rolled back and she fell but she didn't hit her elbows. She expresses when she feel the second time she started to feel pain or a pinched nerve. Currently her pain is a 5/10 on the pain scale with movement. Allergies lisinopril Allergy (Intermediate, Verified 03/29/24 13:54) Rash paroxetine [Paxil] Adverse Reaction (Intermediate, Verified 03/29/24 13:54) weight gain HPI HPI OV-right elbow injury-w/xray: Details: 53-year-old right hand dominant female who presents in the office today for a follow-up of right radial head fracture, which occurred on 02/18/2024. I last saw the patient in the office on 02/22/2024, when she was recommended to remain in the sling for comfort and lifting restrictions were provided at that time.?? ? While in the office today, the Patient reports that she likely re-injured her right elbow status post a fall on 03/14/24 on an outstretched hand to brace her fall. On the 03/17/2024, she was sitting on a cooler that unexpectedly rolled back, causing her to fall, though she did not strike her elbows.?She indicates that upon the second occurrence, she began feeling pain or a pinched nerve. Currently, she rates her pain at 5/10 with movement.? [facility] Medical History (Updated 02/29/24 @ 14:03 by Renate Christianson PA-C) Deafness in right ear Hypertension Hypercholesterolemia History of diabetes mellitus, type II Nicotine dependence, cigarettes, uncomplicated Polycystic ovarian syndrome Tubulovillous adenoma (~2021) Hemorrhoid Obesities, morbid Renal stones Generalized anxiety disorder Depression Bronchitis Migraine Vertigo Sciatica, right side DDD (degenerative disc disease), lumbar Post-operative nausea and vomiting COVID-19 vaccine series completed Surgical History (Updated 02/29/24 @ 14:00 by Renate Christianson PA-C) History of colonoscopy History of umbilical hernia repair History of laparoscopic adjustable gastric banding S/P trigger finger release History of back surgery History of ear surgery Family History Paternal Grandfather Myocardial infarct Paternal Uncle Prostate cancer Alcohol abuse Paternal Aunt Skin cancer Maternal Aunt Breast cancer Social History Housing: House Are you a primary account executive healthcare to a significant other at home: No Do you presently have visiting nurse or other home services: No Alcohol intake: current Alcohol intake frequency: holidays/special occasions only Comment: UNSTEADY GAIT Patient Tobacco Use Status: Current everyday Tobacco user Tobacco use type: Cigarette Cigarette Packs Per Day: 1 Cigarettes Per Day: 20.0 Years Smoked: 30 e-Cigarette/Vaping Use: Never Used Second Hand Smoke Exposure: Yes service: No Current occupational status: employed 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 Cognitive needs: No Hearing needs: No Vision needs: Yes Female Reproductive History Menstrual Age of Menarche: 11 Review of Systems Const All systems reviewed & are unremarkable except as noted in HPI and below Physical Exam Vital Signs: BMI result Body Mass Index 42.9 Const General: cooperative and no acute distress Orientation/consciousness: patient oriented x3 Resp Effort & Inspection: normal respiratory effort and able to speak in complete sentences Cardio Rate: regular rate Peripheral pulses: Peripheral pulses 2+ throughout GI Palpation (GI): Soft to palpation Skin General skin exam: no rashes or lesions noted Lesions: no lesions Rashes: no rashes Neuro General: patient oriented x3 Extrem Other: Right elbow: Normal to inspection. No ecchymosis, erythema, or edema. Lacking about 10 degrees of extension. Full flexion, pronation, and supination. NVI.? Assessment & Plan Assessment & Plan (1) Right radial head fracture: Onset Date: ~01/2024 Comment: (Rt hand dominant/trip&fall/Rt radial head fx - 02/18/24) Code(s): S52.121A - Displaced fracture of head of right radius, initial encounter for closed fracture Category: Medical Qualifiers: Encounter type: initial encounter Fracture type: closed Fracture alignment: nondisplaced Qualified Code(s): S52.124A - Nondisplaced fracture of head of right radius, initial encounter for closed fracture Plan 53-year-old right hand dominant female who presents in the office today for a follow-up of right radial head fracture, which occurred on 02/18/2024. I last saw the patient in the office on 02/22/2024, when she was recommended to remain in the sling for comfort and lifting restrictions were provided at that time.?? ? While in the office today, the Patient reports that she likely re-injured her right elbow status post a fall on 03/14/24 on an outstretched hand to brace her fall. On the 03/17/2024, she was sitting on a cooler that unexpectedly rolled back, causing her to fall, though she did not strike her elbows.?She indicates that upon the second occurrence, she began feeling pain or a pinched nerve. Currently, she rates her pain at 5/10 with movement.? She was instructed to refrain from lifting, pushing, pulling, or carrying anything greater than a coffee cup or cell phone. Follow-up in 4 weeks with x-rays, or sooner if needed.? X-rays obtained in the office today were reviewed by me, Thalia Pantoja PA-C, and redemonstrated the right radial head fracture. There has not been much danyell healing compared to the prior study. This is suggestive of reinjury from her most recent falls. Orders: Orders XR elbow RT min 3V Today M25.529 - Pain in unspecified elbow Patient Instructions: Scribed by Michael Morales medical services assistant, for Thalia Pantoja PA-C on 03/29/2024 at?1:45 PM EST.? Coding Level of Care Code Global (61929) Diagnoses Closed nondisplaced fracture of head of right radius, initial encounter S52.124A Encounter type: initial encounter Fracture type: closed Fracture alignment: nondisplaced
[2024-03-29 13:56] VITALS: BMI 42.9
== END 2024-03-29 14:05 | disposition home or self-care (01) ==
PROVIDERS: PCP Internal Medicine; Visit Provider Physician Assistant
DX: S52.124A Nondisplaced fracture of head of right radius, initial encounter for closed fracture (principal)
CPT/HCPCS: 99213

== ENCOUNTER 2024-04-19 07:45 | Emergency (ER) | payer BC, SELFPAY ==
--- NOTE | 2024-04-19 | ECG_ITS ---
Test Reason : palpitations Blood Pressure : / mmHG Vent. Rate : 096 BPM Atrial Rate : 096 BPM P-R Int : 150 ms QRS Dur : 082 ms QT Int : 360 ms P-R-T Axes : 062 064 052 degrees QTc Int : 454 ms Normal sinus rhythm Normal ECG No previous ECGs available Referred By: Generic ED Physician Electronically Signed By:Marshall Worrell
--- NOTE | ~2024-04-19 | XR_ITS ---
EXAMINATION: XR CHEST 2 VIEW CLINICAL INFORMATION: Shortness of breath, dizziness COMPARISON: 06/04/2016 TECHNIQUE: PA and lateral views of the chest obtained. FINDINGS: The lungs are clear. There are no pleural effusions. The cardiomediastinal silhouette is normal. XR/XR chest 2V IMPRESSION: No acute cardiopulmonary disease.
[2024-04-19 07:50] VITALS: BP 142/67; PULSE 106; RESP 18; TEMP 37.3; O2SAT 97; BMI 40.9
[2024-04-19 07:58] LABS: Glucose, Whole Blood 251 mg/dL (60-115)
--- NOTE | 2024-04-19 08:22 | ED.GENADULT ---
HPI - General Adult General Chief complaint: General Medical Stated complaint: Tremors, disoriented Time Seen by Provider: 04/19/24 08:13 Source: patient Mode of arrival: ambulatory Limitations: no limitations History of Present Illness ED Provider: DR. Ricks HPI narrative: 54-year-old female came in for evaluation of shivering and fever x1 week. Started 1 week ago when patient driving back from work started with shivering and shaking and generalized body ache, and mild headache. The next day patient's symptoms resolved, the last night patient had similar episode of symptoms of fever, chills, generalized body ache, and mild headache,. 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 No photophobia, no neck stiffness, no coughing, no abdominal pain, no nausea, no vomiting, no diarrhea, no infected skin. Patient is diabetic and complaining of increased urinary frequency and feeling thirsty attributed that to uncontrolled diabetes, no back/flank pain. Related Data Previous Rx's ?Medication ?Instructions ?Recorded folic acid 1 mg tablet 1 mg PO DAILY 90 days #90 tabs 06/10/21 albuterol sulfate 90 mcg/actuation 2 puff inhalation Q6H PRN 11/25/22 aerosol inhaler shortness of breath or wheezing #6.7 grams fluconazole 150 mg tablet 150 mg PO Q3D 2 doses #2 tabs 02/16/24 fluticasone propionate 50 2 spray intranasal DAILY #16 grams 02/16/24 mcg/actuation nasal spray,suspension (Flonase Allergy Relief) metformin 500 mg tablet 500 mg PO BIDWMEAL #60 tabs 02/16/24 sertraline 25 mg tablet 25 mg PO DAILY #30 tabs 02/16/24 tramadol 50 mg tablet 50 mg PO BID PRN pain #10 tabs 02/19/24 tirzepatide 2.5 mg/0.5 mL 2.5 mg (0.5 mL) subcut QWEEK 4 02/23/24 subcutaneous pen injector weeks #2 mL (Jim) losartan 100 mg tablet 100 mg PO DAILY #30 tabs 03/07/24 tramadol 50 mg tablet 50 mg PO BID PRN pain 30 days #60 04/03/24 tabs cefuroxime axetil 500 mg tablet 500 mg PO BID #14 tabs 04/19/24 Allergies Allergy/AdvReac Type Severity Reaction Status Date / Time lisinopril Allergy Intermediate Rash Verified 04/19/24 07:55 paroxetine [Paxil] AdvReac Intermediate weight gain Verified 04/19/24 07:55 Review of Systems Review of Systems: All other systems are reviewed and are negative Constitutional: Reports as per HPI and Reports no additional constitutional complaints Eyes: Reports as per HPI and Reports no additional eye complaints Reports system reviewed and no additional complaints, except as documented Cardiovascular: Reports as per HPI and Reports no additional cardiovascular complaints Respiratory: Reports as per HPI and Reports no additional respiratory complaints Gastrointestinal: Reports as per HPI and Reports no additional gastrointestinal complaints Genitourinary: Reports no additional female genitourinary complaints Musculoskeletal: Reports no additional musculoskeletal complaints Skin/Breast: Reports system reviewed and no additional complaints, except as docu Psychiatric: Reports no additional psychiatric complaints Endocrine: Reports no additional endocrine complaints Hematologic/Lymphatic: Reports no additional hematologic/lymphatic complaints Allergic/Immunologic: Reports no additional allergic/immunologic complaints Reports system reviewed and no additional complaints, except as documented and Reports Abnormal speech present [facility] Past Medical History Medical History Deafness in right ear Hypertension Hypercholesterolemia History of diabetes mellitus, type II Nicotine dependence, cigarettes, uncomplicated Polycystic ovarian syndrome Tubulovillous adenoma (~2021) Hemorrhoid Obesities, morbid Renal stones Generalized anxiety disorder Depression Bronchitis Migraine Vertigo Sciatica, right side DDD (degenerative disc disease), lumbar Post-operative nausea and vomiting COVID-19 vaccine series completed Surgical History History of colonoscopy History of umbilical hernia repair History of laparoscopic adjustable gastric banding S/P trigger finger release History of back surgery History of ear surgery Family History Family History Paternal Grandfather Myocardial infarct Paternal Uncle Prostate cancer Alcohol abuse Paternal Aunt Skin cancer Maternal Aunt Breast cancer Social History Social History Housing: House Are you a primary health care specialist to a significant other at home: No Do you presently have visiting nurse or other home services: No Alcohol intake: former Comment: UNSTEADY GAIT Patient Tobacco Use Status: Current everyday Tobacco user Tobacco use type: Cigarette Cigarette Packs Per Day: 1 Cigarettes Per Day: 20.0 Years Smoked: 30 Smoked in Last 30 Days: Yes e-Cigarette/Vaping Use: Never Used Second Hand Smoke Exposure: Yes Use of substances other than those prescribed or required for medical reasons: No Advance Directives: No service: No Current occupational status: employed 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 Blood pressure elevated. Heart rate normal. Respiratory rate normal. Temperature normal. Oxygen saturation normal. Appearance: Alert. Oriented X3. No acute distress. Head: Normal external exam. Normocephalic. Atraumatic. No Rooney signs noted. No raccoon eyes noted Eyes: PERRLA. EOMI. Conjunctiva and sclera normal. Eyelids normal. ENT: TM's Normal. Pharynx normal. Uvula midline. Moist mucous membranes. No trismus noted. No drooling noted. No muffled voice noted. Neck: Normal inspection. Neck supple. FROM. No adenopathy. Thyroid Normal. No meningeal signs. No neck mass noted. CVS: Normal heart rate and rhythm. Heart sound normal. No murmurs noted. Pulses normal throughout. Respiratory: No respiratory distress. Painless inspiration. Breath sounds normal. No wheezes/rales/rhonchi noted. Chest nontender. No accessory muscle usage noted or decreased air movement noted. Abdomen: Soft and nontender. Bowel sounds normal in all 4 quadrants. No distention noted. No organomegaly noted. No visible injury noted. Back: No CVA tenderness. Full range of motion noted. Skin: Skin warm and dry. Normal skin color. Normal skin turgor. No rashes/lesions/lacerations noted. Extremities: No lower extremity edema. Extremities exhibit normal range of motion. Extremities nontender. Neuro: Oriented X 3. Cranial nerve exam: II-XII are grossly intact No motor deficit. No sensory deficit. Reflexes normal. Course Reevaluation(s) Reevaluation #1: 54-year-old female came in for evaluation after having chills with no fever, labs revealed a UTI with no pyelonephritis start the patient on cefuroxime and patient was encouraged to drink plenty of fluids. Time: 12:41 Medications Administered Discontinued Medications Generic Name Dose Route Start Last Admin Trade Name Freq PRN Reason Stop Dose Admin Cefuroxime Axetil 500 mg 04/19/24 12:29 04/19/24 12:39 Cefuroxime Axetil 500 Mg Tablet PO 04/19/24 12:30 500 mg ONCE ONE Administration Medical Decision Making Differential Diagnosis Differential Diagnoses: The differential diagnosis associated with the presentation includes (Strep pharyngitis, viral upper respiratory infection, pneumonia, pneumothorax, pleural effusion, UTI, pyelonephritis.) Admission/Observation Consideration of admission/observation: Escalation of care including admission/observation considered Lab Data MDM Lab Attestation statement: I reviewed the patient's lab results. 04/19/24 08:29 04/19/24 08:29 Labs: Lab Results 04/19/24 04/19/24 04/19/24 Range/Units 07:54 08:29 08:49 WBC 7.8 (4.8-10.8) X10*3/uL RBC 4.25 (4.20-5.50) X10*6/uL Hgb 13.0 (12.0-16.0) g/dl Hct 37.9 (37.0-47.0) % MCV 89.2 (80.0-98.0) fL MCH 30.6 (27.0-33.0) pg MCHC 34.3 (31.0-35.0) g/dl RDW 13.2 (11.0-16.0) % Plt Count 235 (160-400) X10*3/uL MPV 10.3 (9.4-12.3) fL Immature Gran % (Auto) 0.8 H (0.0-0.4) % Neut % (Auto) 88.8 H (45-73) % Lymph % (Auto) 6.7 L (20-40) % [place] % (Auto) 3.2 (2-11) % Eos % (Auto) 0.1 (0-4) % Baso % (Auto) 0.4 (0-2) % Lymph # (Auto) 0.5 L (1.2-4.9) X10*3/uL [place] # (Auto) 0.3 (0.1-1.2) X10*3/uL Eos # (Auto) 0.0 (0.0-0.4) X10*3/uL Baso # (Auto) 0.0 (0.0-0.2) X10*3/uL Abs Immat Gran (auto) 0.06 H (0.00-0.03) X10*3/uL Absolute Neuts (auto) 6.9 (2.0-8.3) x10*3/uL Absolute Nucleated RBC 0.000 (0.0-0.012) X10*3/uL Nucleated RBC % (auto) 0.0 (0.0-0.2) /100WBC Sodium 136 (135-145) mmol/L Potassium 3.4 (3.3-5.1) mmol/L Chloride 102 (96-108) mmol/L Carbon Dioxide 22 (22-29) mmol/L Anion Gap 15 (12-20) BUN 6 L (9-16) mg/dL Creatinine 0.78 (0.5-1.4) mg/dL Estim Creat Clear Calc 104.9 Estimated GFR > 60 POC Glucose 251 H (60-115) mg/dL Random Glucose 235 H (60-115) mg/dL Lactic Acid 1.6 (0.5-2.0) mmol/L Calcium 9.5 (8.4-10.2) mg/dL Urine Color Urine Appearance Urine pH (5.0-9.0) Ur Specific [place] (1.005-1.025) Urine Protein (Neg-Trace) mg/dL Urine Glucose (UA) (Negative) mg/dL Urine Ketones (Negative) mg/dL Urine Blood (Negative) Urine Nitrite (Negative) Ur Leukocyte Esterase (Negative) Urine RBC (0-2) /HPF Urine WBC (0-5) /HPF Ur Squamous Epith Cells (0-2) /HPF Urine Bacteria (None Seen) Hyaline Casts (0-2) /LPF Influenza Type A (PCR) NEGATIVE (Negative) Influenza Type B (PCR) NEGATIVE (Negative) RSV RNA Qual (PCR) NEGATIVE (Negative) SARS-CoV-2 RNA (RT-PCR) NEGATIVE (Negative) S. pyogenes GrpA CHRISTIANNE Negative (Negative) 04/19/24 Range/Units 09:04 WBC (4.8-10.8) X10*3/uL RBC (4.20-5.50) X10*6/uL Hgb (12.0-16.0) g/dl Hct (37.0-47.0) % MCV (80.0-98.0) fL MCH (27.0-33.0) pg MCHC (31.0-35.0) g/dl RDW (11.0-16.0) % Plt Count (160-400) X10*3/uL MPV (9.4-12.3) fL Immature Gran % (Auto) (0.0-0.4) % Neut % (Auto) (45-73) % Lymph % (Auto) (20-40) % [place] % (Auto) (2-11) % Eos % (Auto) (0-4) % Baso % (Auto) (0-2) % Lymph # (Auto) (1.2-4.9) X10*3/uL [place] # (Auto) (0.1-1.2) X10*3/uL Eos # (Auto) (0.0-0.4) X10*3/uL Baso # (Auto) (0.0-0.2) X10*3/uL Abs Immat Gran (auto) (0.00-0.03) X10*3/uL Absolute Neuts (auto) (2.0-8.3) x10*3/uL Absolute Nucleated RBC (0.0-0.012) X10*3/uL Nucleated RBC % (auto) (0.0-0.2) /100WBC Sodium (135-145) mmol/L Potassium (3.3-5.1) mmol/L Chloride (96-108) mmol/L Carbon Dioxide (22-29) mmol/L Anion Gap (12-20) BUN (9-16) mg/dL Creatinine (0.5-1.4) mg/dL Estim Creat Clear Calc Estimated GFR POC Glucose (60-115) mg/dL Random Glucose (60-115) mg/dL Lactic Acid (0.5-2.0) mmol/L Calcium (8.4-10.2) mg/dL Urine Color Dark Yellow Urine Appearance Clear Urine pH 6.0 (5.0-9.0) Ur Specific [place] 1.020 (1.005-1.025) Urine Protein 30 (1+) H (Neg-Trace) mg/dL Urine Glucose (UA) 250 H (Negative) mg/dL Urine Ketones 80 (Negative) mg/dL Urine Blood Negative (Negative) Urine Nitrite Negative (Negative) Ur Leukocyte Esterase Small (1+) H (Negative) Urine RBC 0-2 (0-2) /HPF Urine WBC 21-50 H (0-5) /HPF Ur Squamous Epith Cells 3-5 (0-2) /HPF Urine Bacteria 1+ (None Seen) Hyaline Casts 0-2 (0-2) /LPF Influenza Type A (PCR) (Negative) Influenza Type B (PCR) (Negative) RSV RNA Qual (PCR) (Negative) SARS-CoV-2 RNA (RT-PCR) (Negative) S. pyogenes GrpA CHRISTIANNE (Negative) Independent Interpretation I performed an independent interpretation of an: Plain X-Ray (Chest: No acute intrathoracic pathology.) Radiology Impression Discussion of test interpretation with radiology: I have reviewed the radiologist's reading. Discharge Plan Discharge Clinical Impression: UTI (urinary tract infection) Patient Disposition: Home, Self-Care Instructions: Urinary Tract Infection in Women (ED) Prescriptions: New cefuroxime axetil 500 mg tablet 500 mg PO BID Qty: 14 0RF No Action folic acid 1 mg tablet 1 mg PO DAILY 90 Days Qty: 90 3RF Mounjaro 2.5 mg/0.5 mL pen injector 2.5 mg subcut QWEEK 28 Days Qty: 2 0RF losartan 100 mg tablet 100 mg PO DAILY Qty: 30 3RF tramadol 50 mg tablet 50 mg PO BID PRN (Reason: pain) 30 Days Qty: 60 0RF fluticasone propionate [Flonase Allergy Relief] 50 mcg/actuation spray,suspension 2 spray intranasal DAILY Qty: 16 4RF Rx Instructions: administer into each nostril fluconazole 150 mg tablet 150 mg PO Q3D Qty: 2 0RF sertraline 25 mg tablet 25 mg PO DAILY Qty: 30 4RF metformin 500 mg tablet 500 mg PO BIDWMEAL Qty: 60 2RF albuterol sulfate 90 mcg/actuation HFA aerosol inhaler 2 puff inhalation Q6H PRN (Reason: shortness of breath or wheezing) Qty: 6.7 0RF tramadol 50 mg tablet 50 mg PO BID PRN (Reason: pain) Qty: 10 0RF Referrals: Po,Augustin Jacobsen MD [Primary Care Provider] - Print Language: Greek
[2024-04-19 08:46] LABS: MANUAL DIFF FLAG NO
[2024-04-19 08:52] LABS: Basophils Percent Auto 0.4 % (0-2); Eosinophils Percent Auto 0.1 % (0-4); Hematocrit 37.9 % (37.0-47.0); Imm Gran Abs Auto 0.06 X10*3/uL (0.00-0.03); Imm Gran Pct Auto 0.8 % (0.0-0.4); Lymphocytes Absolute Auto 0.5 X10*3/uL (1.2-4.9); Lymphocytes Percent Auto 6.7 % (20-40); Mean Corpuscular HGB Conc 34.3 g/dl (31.0-35.0); Mean Corpuscular Hemoglobin 30.6 pg (27.0-33.0); Mean Corpuscular Volume 89.2 fL (80.0-98.0); Mean Platelet Volume 10.3 fL (9.4-12.3); Monocytes Absolute Auto 0.3 X10*3/uL (0.1-1.2); Monocytes Percent Auto 3.2 % (2-11); Neutrophils Absolute Auto 6.9 x10*3/uL (2.0-8.3); Neutrophils Percent Auto 88.8 % (45-73); Platelet Count 235 X10*3/uL (160-400); Red Blood Count 4.25 X10*6/uL (4.20-5.50); Red Cell Distribution Width 13.2 % (11.0-16.0); White Blood Count 7.8 X10*3/uL (4.8-10.8)
[2024-04-19 09:03] LABS: Anion Gap 15 (12-20); Blood Urea Nitrogen 6 mg/dL (9-16); Calcium 9.5 mg/dL (8.4-10.2); Carbon Dioxide 22 mmol/L (22-29); Chloride 102 mmol/L (96-108); Creatinine Clr Calc Pharmacy 104.9; Estimated Glomerular Filt Rate > 60; Glucose Random 235 mg/dL (60-115); Potassium 3.4 mmol/L (3.3-5.1); Sodium 136 mmol/L (135-145)
[2024-04-19 09:10] LABS: Lactic Acid 1.6 mmol/L (0.5-2.0)
[2024-04-19 09:11] LABS: Appearance Urine Clear; Color Urine Dark Yellow; Glucose Urine UA 250 mg/dL (Negative); Leukocyte Esterase Urine Small (1+) (Negative); Nitrite Urine Negative (Negative); UMIC TRIGGER UACC YES; Urine Blood Negative (Negative); Urine Ketones 80 mg/dL (Negative); Urine Protein 30 (1+) mg/dL (Neg-Trace)
[2024-04-19 09:19] LABS: IDNOW Serial# 08D9AD1C; Strep A Nucleic Acid Negative (Negative)
[2024-04-19 09:22] LABS: Bacteria Urine 1+ (None Seen); Hyaline Casts Urine 0-2 /LPF (0-2); RBC Urine 0-2 /HPF (0-2); UACC Culture Trigger YES; WBC Urine 21-50 /HPF (0-5)
[2024-04-19 09:42] LABS: Influenza A PCR NEGATIVE (Negative); Influenza B PCR NEGATIVE (Negative); Resp Syncy Virus RNA Qual PCR NEGATIVE (Negative); SARS COV2 PCR INHOUSE NEGATIVE (Negative)
[2024-04-19 10:20] VITALS: BP 103/64; PULSE 85; RESP 20; O2SAT 97
[2024-04-19] MEDS: cefuroxime axetiL 500 MG TABLET PO (12:39)
[2024-04-19 14:17] VITALS: BP 119/52; PULSE 88; RESP 20; TEMP 36.9; O2SAT 97
== END 2024-04-19 14:18 | disposition home or self-care (01) ==
PROVIDERS: Emergency Provider Emergency Medicine; PCP Internal Medicine
DX: N39.0 Urinary tract infection, site not specified (principal); R25.1 Tremor, unspecified; R50.9 Fever, unspecified; R00.2 Palpitations; F17.210 Nicotine dependence, cigarettes, uncomplicated; Z03.818 Encounter for observation for suspected exposure to other biological agents ruled out; Z79.899 Other long term (current) drug therapy
CPT/HCPCS: 0241U; 36415; 71046; 80048; 81001; 82947; 83605; 85025; 87040; 87086; 87088; 87186; 87651; 93005; 99283; 99284

== ENCOUNTER → 2024-04-19 08:04 | Outpatient (BNV) | payer BC, SELFPAY | PROVIDERS: Emergency Provider Emergency Medicine; PCP Internal Medicine; Visit Provider Internal Medicine Cardiovascular Disease | DX: R00.2 Palpitations (principal) | CPT/HCPCS: 93010 ==

== ENCOUNTER 2024-05-06 06:26 | Outpatient (REF) | payer BC, SELFPAY ==
[2024-05-06 06:36] LABS: MANUAL DIFF FLAG NO
[2024-05-06 07:15] LABS: Basophils Absolute Auto 0.1 X10*3/uL (0.0-0.2); Basophils Percent Auto 0.8 % (0-2); Eosinophils Absolute Auto 0.2 X10*3/uL (0.0-0.4); Hematocrit 41.2 % (37.0-47.0); Hemoglobin 13.4 g/dl (12.0-16.0); Imm Gran Abs Auto 0.03 X10*3/uL (0.00-0.03); Imm Gran Pct Auto 0.4 % (0.0-0.4); Lymphocytes Absolute Auto 2.3 X10*3/uL (1.2-4.9); Lymphocytes Percent Auto 30.6 % (20-40); Mean Corpuscular HGB Conc 32.5 g/dl (31.0-35.0); Mean Corpuscular Hemoglobin 29.8 pg (27.0-33.0); Mean Corpuscular Volume 91.6 fL (80.0-98.0); Monocytes Absolute Auto 0.5 X10*3/uL (0.1-1.2); Monocytes Percent Auto 7.1 % (2-11); Neutrophils Absolute Auto 4.5 x10*3/uL (2.0-8.3); Neutrophils Percent Auto 59.1 % (45-73); Platelet Count 303 X10*3/uL (160-400); Red Cell Distribution Width 13.8 % (11.0-16.0); White Blood Count 7.6 X10*3/uL (4.8-10.8)
[2024-05-06 07:46] LABS: Alanine Aminotransferase 24 U/L (0-31); Albumin Level 4.3 g/dL (3.5-5.0); Alkaline Phosphatase 77 U/L (39-117); Anion Gap 17 (12-20); Aspartate Amino Transferase 16 U/L (5-31); Bilirubin Total 0.4 mg/dL (0.0-1.0); Blood Urea Nitrogen 14 mg/dL (9-16); Calcium 9.8 mg/dL (8.4-10.2); Carbon Dioxide 24 mmol/L (22-29); Chloride 103 mmol/L (96-108); Cholesterol 195 mg/dL (<200); Estimated Glomerular Filt Rate > 60; Glucose Random 178 mg/dL (60-115); HDL Cholesterol 34 mg/dL (>40); LDL Cholesterol Calculated 116 mg/dL (<100); Sodium 139 mmol/L (135-145); Total Protein 7.4 g/dL (6.5-8.0); Triglycerides 228 mg/dL (<150)
[2024-05-06 08:06] LABS: Free T4 (Free Thyroxine) 0.82 ng/dL (0.71-1.85); Thyroid Stimulating Hormone 1.34 uIU/mL (0.32-4.0); Vitamin D 25-OH Total 43.1 ng/mL (>30)
[2024-05-06 08:15] LABS: Folate 5.3 ng/mL (> or = 4.0); Vitamin B12 581 pg/mL (200-900)
[2024-05-06 09:23] LABS: Creatinine Urine 148.14 mg/dL; Microalbum/Creatinine Ratio Ur 31.7 ug/mg cr (<30)
== END 2024-05-06 06:27 | disposition home or self-care (01) ==
LOC: HO.LAB 06:26
PROVIDERS: PCP Internal Medicine; Visit Provider Internal Medicine
DX: E11.65 Type 2 diabetes mellitus with hyperglycemia (principal); E78.00 Pure hypercholesterolemia, unspecified
CPT/HCPCS: 36415; 80053; 80061; 82043; 82306; 82570; 82607; 82746; 84439; 84443; 85025

== ENCOUNTER 2024-05-09 15:22 | Outpatient (AMB) | payer BC, SELFPAY ==
[2024-05-09 15:23] VITALS: BP 110/72; PULSE 80; O2SAT 97; BMI 40.8
--- NOTE | 2024-05-09 15:23 | A.OFFPC_ITS ---
Vital Signs 05/09/24 15:23 Height 5 ft 5 in Weight 245 lb BMI 40.8 BP 110/72 Blood Pressure Location Lt brachial Position Sitting Pulse 80 Pulse Source Pulse Oximeter Pulse Oximetry (%) 97 Oxygen Delivery Method Room Air Intake Visit Reasons: Advised needs to be seen beforeRefill Sustainability Purchasing Agent Required: No Accompanied by: Self / Same As Patient Allergies lisinopril Allergy (Intermediate, Verified 05/09/24 15:23) Rash paroxetine [Paxil] Adverse Reaction (Intermediate, Verified 05/09/24 15:23) weight gain Tobacco use date assessed: 05/09/24 Dental Screening Dental Screen Date: 05/09/24 Did you have a dental visit in the last 12 months?: Yes Did you have a dental problem in the last 6 months where you did not have access to dental care?: No Was dental information given to patient?: Patient has dentist HPI Advised needs to be seen beforeRefill HPI Details 54-year-old morbidly obese female smoker with a history of diabetes mellitus hypertension hypercholesterolemia patient has a history of laparoscopic gastric banding generalized anxiety disorder coming in for follow-up last seen in 02/08/2024. hs had R elbow fracture . then had UTI [facility] Medical History Deafness in right ear Hypertension Hypercholesterolemia History of diabetes mellitus, type II Nicotine dependence, cigarettes, uncomplicated Polycystic ovarian syndrome Tubulovillous adenoma (~2021) Hemorrhoid Obesities, morbid Renal stones Generalized anxiety disorder Depression Bronchitis Migraine Vertigo Sciatica, right side DDD (degenerative disc disease), lumbar Post-operative nausea and vomiting COVID-19 vaccine series completed Surgical History History of colonoscopy History of umbilical hernia repair History of laparoscopic adjustable gastric banding S/P trigger finger release History of back surgery History of ear surgery Family History Paternal Grandfather Myocardial infarct Paternal Uncle Prostate cancer Alcohol abuse Paternal Aunt Skin cancer Maternal Aunt Breast cancer Social History Housing: House Are you a primary health care legal assistant to a significant other at home: No Do you presently have visiting nurse or other home services: No Alcohol intake: former Comment: UNSTEADY GAIT Patient Tobacco Use Status: Current everyday Tobacco user Tobacco use type: Cigarette Cigarette Packs Per Day: 1 Cigarettes Per Day: 20.0 Years Smoked: 30 e-Cigarette/Vaping Use: Never Used Second Hand Smoke Exposure: Yes service: No Current occupational status: employed 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 1. Little interest or pleasure in doing things: nearly every day 2. Feeling down, depressed, or hopeless: nearly every day 3. Trouble falling or staying asleep, or sleeping too much: nearly every day 4. Feeling tired or having little energy: nearly every day 5. Poor appetite or overeating: nearly every day 6. Feeling bad about yourself - or that you are a failure or have let yourself or your family down: more than half the days 7. Trouble concentrating on things, such as reading the newspaper or watching television: not at all 8. Moving or speaking so slowly that other people could have noticed. Or the opp osite - being so fidgety or restless that you have been moving around a lot more than usual: not at all 9. Thoughts that you would be better off or of hurting yourself in some way: not at all Total score: 17 Depression Screening Interpretation: Positive Depression Screening Done: Yes Source: Developed by Drs. Thomas Santacruz, Barbara Hernandez, Guille Zarate and colleagues, with an educational jori from [employer]. Thrive Questionnaire Date Thrive assessed: 05/09/24 I am a: Patient What is your living situation today?: I have a steady place to live Within the past 12 months, did the food you bought not last and you didn't have the money to get more?: Never true Within the past 12 months, did you worry whether your food would run out before you got money to buy more?: Never true Do you have trouble paying for medicines?: No Do you have trouble getting transportation to medical appointments?: No Do you have trouble paying your heating and electricity bill?: No Do you have trouble taking care of your child, family member or friend?: No Do you have trouble with day-to-day activities such as bathing, preparing meals, shopping, managing finances, etc.?: No Are you currently unemployed and looking for a job?: No Are you interested in more education?: No Please select the resources that you would like help with: None Currently or been in a relationship where the following occur: No concerns reported THRIVE Score: 0 AUDIT C Alcohol Use Questionnaire (AUDIT-C) 1. How often do you have a drink containing alcohol?: Monthly or less 2. How many drinks containing alcohol do you have on a typical day when you are drinking?: 1 or 2 Total Score: 1 ARASH-7 AMB Questionnaire ARASH-7 Date ARASH - 7 assessed: 05/09/24 Feeling nervous, anxious, or on edge: 1 = Several days Not being able to stop or control worryin = Nearly every day Worrying too much about different things: 3 = Nearly every day Trouble relaxin = Several days Being so restless that it is hard to sit still: 0 = Not at all Becoming easily annoyed or irritable: 3 = Nearly every day Feeling afraid as if something awful might happen: 2 = More than half the days Total ARASH-7 score (0-4 normal; 5-9 mild; 10-14 moderate; 15-21 severe): 13 Source: Developed by Drs. Thomas Santacruz, Barbara Hernandez, Guille Zarate and colleagues, with an educational jori from [employer]. Physical exam (Primary Care) Vital Signs: Last Vital Signs Pulse 80 05/09/24 15:23 BP 110/72 05/09/24 15:23 Pulse Ox 97 05/09/24 15:23 Oxygen Delivery Method Room Air 05/09/24 15:23 BMI result Body Mass Index 40.8 Tobacco/Smoking Status: Tobacco use Status Tobacco use date assessed 05/09/24 05/09/24 15:25 Patient Tobacco Use Status Current everyday Tobacco 05/09/24 15:25 Tobacco use type Cigarette 05/09/24 15:25 e-Cigarette/Vaping Use Never Used 05/09/24 15:25 PHQ-9: PHQ-9 Score PHQ-9: Total score 17 05/09/24 16:19 Depression Screening Interpretation: Positive Thrive Assessment: Date of Thrive Assessment Date Thrive assessed 05/09/24 05/09/24 15:25 Currently or been in a relationship where the following occur: No concerns reported Const General: alert; No acute distress Eyes Conjunctivae: conjunctivae normal Resp Auscultation: clear to auscultation bilaterally Cardio Rate: regular rate Rhythm: regular rhythm GI Inspection: Yes normal to inspection Extrem General: Yes normal to inspection and No edema Results AMB Hemoglobin A1c AMB Hemoglobin A1c 8.1 % Last Edit by Petra Dallas [facility] on 05/09/24 16 :00 AMB Urinalysis, Automated UA Leukoctes 1 Conor/uL Last Edit by Petra Dallas [facility] on 05/09/24 16:44 UA Nitrite Negative Last Edit by Petra Dallas [facility] on 05/09/24 16:44 UA Urobilinogen 0 mg/dL Last Edit by Petra Dallas [facility] on 05/09/24 16: 44 UA Protein 0 mg/dL Last Edit by Petra Dallas [facility] on 05/09/24 16:44 UA pH 6.0 Last Edit by Petra Dallas [facility] on 05/09/24 16:44 UA Blood 0 Aidan/uL Last Edit by Petra Dallas [facility] on 05/09/24 16:44 UA Specific [place] 1.015 Last Edit by Petra Dallas [facility] on 05/09/24 16:44 UA Ketone Positive Last Edit by Petra Dallas [facility] on 05/09/24 16:44 UA Bilirubin 0 mg/dL Last Edit by Petra Dallas [facility] on 05/09/24 16:44 UA Glucose 0 mg/dL Last Edit by Petra Dallas [facility] on 05/09/24 16:44 Results Reviewed Results Reviewed: Laboratory Last Values Hgb A1c (Clinic) 8.1 % (4.0-6.0) H 05/09/24 15:45 Assessment and Plan Assessment & Plan (1) History of diabetes mellitus, type II: Comment: (dx age 28-was on metformin age [id number] normalized s/p childbirth age 47- no longer on Rx-A1C 5.1 since 2017) Code(s): Z86.39 - Personal history of other endocrine, nutritional and metabolic disease Plan: Decrease the amount of carbohydrate intake, pasta, bread, rice and potatoes are all sugar and that is aside from all the sweet stuff, remember that fruits are good but they are Sweet also. Hemoglobin A1c goal of less than 6.5 patient on metformin 500 mg twice a day Mounjaro prescription (2) Hypercholesterolemia: Code(s): E78.00 - Pure hypercholesterolemia, unspecified Plan: Avoid fried foods, chicken skin, eggs, butter margarine, pastries and meat. Be it pork or beef they have a lot of cholesterol LDL goal of less than 100 and triglyceride of less than 150 patient not on cholesterol medication (3) Hypertension: Code(s): I10 - Essential (primary) hypertension Plan: Continue with blood pressure medication. Decrease salt intake and exercise takes losartan 100 mg once a day (4) Obesities, morbid: Code(s): E66.01 - Morbid (severe) obesity due to excess calories Plan: Diet and exercise (5) Recurrent depression: Comment: Declined referral for counseling Code(s): F33.9 - Major depressive disorder, recurrent, unspecified Orders: Orders AMB Hemoglobin A1c Today Z13.9 - Encounter for screening, unspecified AMB Urinalysis Auto Microscop. Today R30.0 - Dysuria AMB Urinalysis Automated Today Z13.9 - Encounter for screening, unspecified, Z86.39 - Personal history of other endocrine, nutritional and metabolic disease Referrals Psychiatry Outpatient Consultation Service F33.9 - Major depressive disorder, recurrent, unspecified Medications: New blood-glucose meter (FreeStyle Lite Meter kit) As directed 1 ea 0RF E11.65 - Type 2 diabetes mellitus with hyperglycemia, F33.9 - Major depressive disorder, recurrent, unspecified blood sugar diagnostic (FreeStyle Lite Strips) As directed check the BS QD 100 ea 3RF E11.65 - Type 2 diabetes mellitus with hyperglycemia, F33.9 - Major depressive disorder, recurrent, unspecified lancets (FreeStyle Lancets) As directed check BS QD 100 ea 3RF E11.65 - Type 2 diabetes mellitus with hyperglycemia, F33.9 - Major depressive disorder, recurrent, unspecified Changed From sertraline 25 mg PO DAILY 30 tabs 4RF F33.9 - Major depressive disorder, recurrent, unspecified To sertraline 50 mg PO DAILY 30 tabs 4RF F33.9 - Major depressive disorder, recurrent, unspecified From tirzepatide (Mounjaro) 2.5 mg (0.5 mL) subcut QWEEK 4 weeks 2 mL 0RF E11.65 - Type 2 diabetes mellitus with hyperglycemia To tirzepatide 2.5 mg (0.25 mL) subcut QWEEK 2 mL 2RF 4 weeks E11.65 - Type 2 diabetes mellitus with hyperglycemia Coding Level of Care Code Est Pt Level 4 (20854) Diagnoses History of diabetes mellitus, type II Z86.39 Hypercholesterolemia E78.00 Hypertension I10 Obesities, morbid E66.01 Recurrent depression F33.9
== END 2024-05-09 16:33 | disposition home or self-care (01) ==
PROVIDERS: PCP Internal Medicine; Visit Provider Internal Medicine
DX: E11.65 Type 2 diabetes mellitus with hyperglycemia (principal); E66.01 Morbid (severe) obesity due to excess calories; F33.9 Major depressive disorder, recurrent, unspecified; Z68.41 Body mass index [BMI] 40.0-44.9, adult; I10 Essential (primary) hypertension; E78.00 Pure hypercholesterolemia, unspecified; Z86.39 Personal history of other endocrine, nutritional and metabolic disease; R30.0 Dysuria
CPT/HCPCS: 81003; 83036; 99214

== ENCOUNTER 2024-05-16 14:07 | Outpatient (REF) | payer BC, SELFPAY ==
--- NOTE | ~2024-05-16 | XR_ITS ---
EXAMINATION: XR ELBOW, RIGHT CLINICAL INFORMATION: Pain in the elbow COMPARISON: X-ray of the right elbow recent March 29, 2024 TECHNIQUE: AP, lateral, and oblique views of the right elbow. FINDINGS: Trace joint effusion. The previously noted mildly displaced intra-articular radial head fracture is redemonstrated with an unchanged appearance and alignment. Minimal calcification or ossification between the radial head and humerus unchanged. Surrounding bone joints and soft tissues are normal. XR/XR elbow RT min 3V IMPRESSION: 1. Intra-articular radial head fracture unchanged in appearance and alignment. 2. Trace joint effusion. Electronically signed by: George Olivo MD 05/20/2024 01:05 PM EDT
== END 2024-05-16 14:08 | disposition home or self-care (01) ==
LOC: HO.HOSX 14:07
PROVIDERS: PCP Internal Medicine; Visit Provider Physician Assistant
DX: M25.521 Pain in right elbow (principal)
CPT/HCPCS: 73080

== ENCOUNTER 2024-05-16 14:50 | Outpatient (AMB) | payer BC, SELFPAY ==
--- NOTE | 2024-05-16 14:54 | MHC.OFFVIS ---
Vital Signs 05/16/24 14:56 Height 5 ft 5 in Weight 245 lb BMI 40.8 Handedness Right Intake Visit Reasons: OV-right elbow injury-w/xray 4 wk follow up Intake Note: Judith is a 53 year old right hand dominant female who presents today for a evaluation of her right elbow injury, DOI 02/18/24. Patient reports she is still hearing some clicking with movement. Currently her pain is a 4 out 10 on the pain scale. Allergies lisinopril Allergy (Intermediate, Verified 05/16/24 14:55) Rash paroxetine [Paxil] Adverse Reaction (Intermediate, Verified 05/16/24 14:55) weight gain Do you need a note to return to daycare/school/sports/work: No HPI HPI OV-right elbow injury-w/xray 4 wk follow up: Details: 54-year-old right hand dominant female who presents in the office today?for a follow-up of right radial head fracture, which occurred on 02/18/2024. I last saw the patient in the office on 03/29/2024 when she was instructed to refrain from lifting, pushing, or pulling anything greater than a coffee cup. ?? ? While in the office today, the patient reports she is still hearing some click with ROM. She rates her pain as a 4/10 while in the office. [facility] Medical History Deafness in right ear Hypertension Hypercholesterolemia History of diabetes mellitus, type II Nicotine dependence, cigarettes, uncomplicated Polycystic ovarian syndrome Tubulovillous adenoma (~2021) Hemorrhoid Obesities, morbid Renal stones Generalized anxiety disorder Depression Bronchitis Migraine Vertigo Sciatica, right side DDD (degenerative disc disease), lumbar Post-operative nausea and vomiting COVID-19 vaccine series completed Surgical History History of colonoscopy History of umbilical hernia repair History of laparoscopic adjustable gastric banding S/P trigger finger release History of back surgery History of ear surgery Family History Paternal Grandfather Myocardial infarct Paternal Uncle Prostate cancer Alcohol abuse Paternal Aunt Skin cancer Maternal Aunt Breast cancer Social History Housing: House Are you a primary career based intervention coordinator to a significant other at home: No Do you presently have visiting nurse or other home services: No Alcohol intake: former Comment: UNSTEADY GAIT Patient Tobacco Use Status: Current everyday Tobacco user Tobacco use type: Cigarette Cigarette Packs Per Day: 1 Cigarettes Per Day: 20.0 Years Smoked: 30 e-Cigarette/Vaping Use: Never Used Second Hand Smoke Exposure: Yes service: No Current occupational status: employed 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 Cognitive needs: No Hearing needs: No Vision needs: Yes Female Reproductive History Menstrual Age of Menarche: 11 Review of Systems Const All systems reviewed & are unremarkable except as noted in HPI and below Physical Exam Vital Signs: BMI result Body Mass Index 40.8 Const General: cooperative, healthy appearing and no acute distress Resp Effort & Inspection: normal respiratory effort and able to speak in complete sentences Cardio Rate: regular rate Peripheral pulses: Peripheral pulses 2+ throughout GI Palpation (GI): Soft to palpation Skin Lesions: no lesions Rashes: no rashes Extrem Other: Right elbow: Normal to inspection. No ecchymosis, erythema, or edema. Lacking about 10 degrees of extension. Full flexion, pronation, and supination. NVI.? Assessment & Plan Assessment & Plan (1) Right radial head fracture: Onset Date: ~01/2024 Comment: (Rt hand dominant/trip&fall/Rt radial head fx - 02/18/24) Code(s): S52.121A - Displaced fracture of head of right radius, initial encounter for closed fracture Category: Medical Qualifiers: Encounter type: initial encounter Fracture alignment: nondisplaced Fracture type: closed Qualified Code(s): S52.124A - Nondisplaced fracture of head of right radius, initial encounter for closed fracture Plan Ms. Regalado is a 54-year-old right hand dominant female who presents in the office today?for a follow-up of right radial head fracture, which occurred on 02/18/2024. I last saw the patient in the office on 03/29/2024 when she was instructed to refrain from lifting, pushing, or pulling anything greater than a coffee cup. ?? ? While in the office today, the patient reports she is still hearing some click with ROM. She rates her pain as a 4/10 while in the office.? ? The patient may return to normal activities as tolerated; using pain as her guide. She reports she did a thorough cleaning of her bathroom yesterday while at home and states she does have mild soreness, but this is tolerable. We discussed the role of formal physical therapy, however, she is performing many activities on her own, so we have agreed to defer at this time. Follow-up will be PRN, or sooner if needed. ?? ? X-rays of the right elbow which were obtained while in the office today and were reviewed by me, Thalia Pantoja PA-C, revealed routine healing of a right radial head fracture. ? Orders: Orders XR elbow RT min 3V Today M25.529 - Pain in unspecified elbow Patient Instructions: Scribed by Joanna Carter medical research tech, for Thalia Pantoja PA-C on 05/16/2024 at 2:56 pm, EST.? Coding Level of Care Code Global (22645) Diagnoses Closed nondisplaced fracture of head of right radius, initial encounter S52.124A Encounter type: initial encounter Fracture alignment: nondisplaced Fracture type: closed
[2024-05-16 14:56] VITALS: BMI 40.8
== END 2024-05-16 15:13 | disposition home or self-care (01) ==
LOC: HO.HOS 14:50
PROVIDERS: PCP Internal Medicine; Visit Provider Physician Assistant
DX: S52.124A Nondisplaced fracture of head of right radius, initial encounter for closed fracture (principal)
CPT/HCPCS: 99213

== ENCOUNTER 2024-05-19 17:20 | Outpatient (AMB) | payer BC, SELFPAY ==
--- NOTE | 2024-05-19 16:16 | A.OFFPSYCH_ITS ---
Intake Intake Visit Reasons: consult Allergies lisinopril Allergy (Intermediate, Verified 05/16/24 14:55) Rash paroxetine [Paxil] Adverse Reaction (Intermediate, Verified 05/16/24 14:55) weight gain Medication List - Last Reconciled 05/19/24 by Shazia Bernard APRN albuterol sulfate 90 mcg/actuation 2 puffs inhalation Q6H PRN blood sugar diagnostic (FreeStyle Lite Strips) As directed check the BS QD blood-glucose meter (FreeStyle Lite Meter kit) As directed fluconazole 150 mg PO Q3D 2 doses fluticasone propionate 50 mcg/actuation (Flonase Allergy Relief) 2 sprays intranasal DAILY folic acid 1 mg PO DAILY 90 days lancets (FreeStyle Lancets) As directed check BS QD losartan 100 mg PO DAILY metformin 500 mg PO BIDWMEAL sertraline 50 mg PO DAILY tirzepatide 2.5 mg (0.25 mL) subcut QWEEK 4 weeks tramadol 50 mg PO BID PRN 30 days tramadol 50 mg PO BID PRN HPI- Psychiatric Chief Complaint: consult HPI Narrative: 54-year-old female with a history of diabetes mellitus hypertension high cholesterol, and laparoscopic gastric banding referred by pcp for evaluation of ARASH and depression. Pt reports Depressive symptoms have been minimally addressed with sertraline. Recently started increased dosage of zoloft up to 50mg. She does not currently have any outpatient providers. she will be starting with therapist when available; pt has history of depression in past and recognized her withdrawal and avoidance of socializing as an early warning sign. pt has had more stress due to arm fracture- she tripped at her daughter's school event and broke her elbow. She has chronic pain from degenrative disc disorder. 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 denies SI or HI; no psychosis Past Psychiatric History: first depression in 20s. no IPLOC. age 28 or 29 pt engaged in co-dependency groups and saw Dr Astudillo outpt and did very well for years. age 42 dx with depression. took wellbutrin in past Subjective Subjective Subjective Medication Compliance: Yes Side effects from medications: No Review of Systems Medical Review of Systems: unchanged Mental Status Exam Mental Status Exam Patient Appearance: Well Grooomed and Appropriate Patient Orientation: Person, Place, Time and Situation Level of Consciousness: Awake and Appropriate Patient Behavior: Appropriate and Good Eye Contact Mood Description: Sad and Nervous Affect Description: Sad and Nervous Patient Cognition Impaired: No Ability to Follow Directions: Good Speech Pattern: Clear and Appropriate Memory Description: Intact Hallucinations: None Delusions: Not Present Thought Process: Intact and Racing Thought Content: positive for Intact and positive for Loose Associations Judgement: Good Assessment and Plan Assessment & Plan (1) Major depressive disorder, recurrent, moderate: Status: Acute Code(s): F33.1 - Major depressive disorder, recurrent, moderate (2) Generalized anxiety disorder: Status: Acute Code(s): F41.1 - Generalized anxiety disorder Plan continue to increase zoloft- increase to 75mg daily Medications: Changed From sertraline 50 mg PO DAILY 30 tabs 4RF F33.9 - Major depressive disorder, recurrent, unspecified To sertraline 75 mg (1.5 x 50 mg) PO DAILY 45 tabs 4RF F33.9 - Major depressive disorder, recurrent, unspecified Counseling and coordination of Care Pt. Self Management counseling: Exercise, Maintenance-social rhythm, Mod caffeine/ETOH intake, Nutrition education and improvement, Sleep hygiene, Behavior activation, Cognitive restructuring and General coping skills Medication management counseling: Effectiveness, Side effects, Dosing range, Duration, Drug interaction and Adherence Diagnosis and Prognosis Counseling: Accuracy of diagnosis, Prognosis over time, Impact of diagnosis on life functions, Impact of family relationship, Problematic behaviors secondary to diagnosis and Adequacy of current interventions Details: I spent 70 minutes reviewing the record, seeing the patient and documenting in the medical record. Counseling provided to the patient/caregiver as outlined below. Addressed patient/caregiver concerns regarding current medication regime including effective adherence. Addressed patient/caregiver concerns regarding diagnosis and prognosis including accuracy of diagnosis, prognosis over time, impact of diagnosis. Addressed patient/caregiver concerns regarding impact of recent stressors. [facility] Medical History Deafness in right ear Hypertension Hypercholesterolemia History of diabetes mellitus, type II Nicotine dependence, cigarettes, uncomplicated Polycystic ovarian syndrome Tubulovillous adenoma (~2021) Hemorrhoid Obesities, morbid Renal stones Generalized anxiety disorder Depression Bronchitis Migraine Vertigo Sciatica, right side DDD (degenerative disc disease), lumbar Post-operative nausea and vomiting COVID-19 vaccine series completed Surgical History History of colonoscopy History of umbilical hernia repair History of laparoscopic adjustable gastric banding S/P trigger finger release History of back surgery History of ear surgery Family History Paternal Grandfather Myocardial infarct Paternal Uncle Prostate cancer Alcohol abuse Paternal Aunt Skin cancer Maternal Aunt Breast cancer Social History Housing: House Are you a primary care tech to a significant other at home: No Do you presently have visiting nurse or other home services: No Alcohol intake: former Comment: UNSTEADY GAIT Patient Tobacco Use Status: Current everyday Tobacco user Tobacco use type: Cigarette Cigarette Packs Per Day: 1 Cigarettes Per Day: 20.0 Years Smoked: 30 e-Cigarette/Vaping Use: Never Used Second Hand Smoke Exposure: Yes service: No Current occupational status: employed 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 children at home are 7 and 12 Substance History: none Trauma History: caretake when very young Coding Level of Care Code Psych Diag Eval w/Med (87689) Diagnoses Major depressive disorder, recurrent, moderate F33.1 Generalized anxiety disorder F41.1
== END 2024-05-19 17:25 | disposition home or self-care (01) ==
LOC: HO.HOP 17:20
PROVIDERS: PCP Internal Medicine; Visit Provider Clinical Nurse Specialist Psychiatric/Mental Health
DX: F33.1 Major depressive disorder, recurrent, moderate (principal); F41.1 Generalized anxiety disorder
CPT/HCPCS: 90792

== ENCOUNTER → 2024-05-19 17:20 | Outpatient (BNVA) | payer BC, SELFPAY | PROVIDERS: PCP Internal Medicine; Visit Provider Clinical Nurse Specialist Psychiatric/Mental Health | DX: F33.1 Major depressive disorder, recurrent, moderate (principal); F41.1 Generalized anxiety disorder; Z79.899 Other long term (current) drug therapy | CPT/HCPCS: 90792 ==

== ENCOUNTER 2024-07-07 16:31 | Outpatient (AMB) | payer BC, SELFPAY ==
--- NOTE | 2024-07-07 16:42 | A.OFFPSYCH_ITS ---
Intake Intake Visit Reasons: follow up X Ray Examiner Of Aircraft Required: No Allergies lisinopril Allergy (Intermediate, Verified 05/16/24 14:55) Rash paroxetine [Paxil] Adverse Reaction (Intermediate, Verified 05/16/24 14:55) weight gain Medication List - Last Reconciled 07/07/24 by Shazia Bernard APRN albuterol sulfate 90 mcg/actuation 2 puffs inhalation Q6H PRN blood sugar diagnostic (FreeStyle Lite Strips) As directed check the BS QD blood-glucose meter (FreeStyle Lite Meter kit) As directed fluconazole 150 mg PO Q3D 2 doses fluticasone propionate 50 mcg/actuation (Flonase Allergy Relief) 2 sprays intranasal DAILY folic acid 1 mg PO DAILY 90 days lancets (FreeStyle Lancets) As directed check BS QD losartan 100 mg PO DAILY metformin 500 mg PO BIDWMEAL sertraline 75 mg (1.5 x 50 mg) PO DAILY tirzepatide 2.5 mg (0.25 mL) subcut QWEEK 4 weeks tramadol 50 mg PO BID PRN 30 days tramadol 50 mg PO BID PRN HPI- Psychiatric Chief Complaint: follow up HPI Narrative: pt reports improvement with increase in zoloft; she feels less depressed; less like hiding and isolating; Pt reports still not feeling social or motivated at times; avids some outings but is attending family gatherings. attending to ADLs more easily. no side effects; sleep fair- approximately 5-6 hours but wakes often. no SI or HI Past Psychiatric History: first depression in 20s. no IPLOC. age 28 or 29 pt engaged in co-dependency groups and saw Dr Astudillo outpt and did very well for years. age 42 dx with depression. took wellbutrin in past Subjective Subjective Subjective Medication Compliance: Yes Side effects from medications: No Review of Systems Medical Review of Systems: unchanged Mental Status Exam Mental Status Exam Patient Appearance: Well Grooomed and Appropriate Patient Orientation: Person, Place, Time and Situation Level of Consciousness: Awake, Appropriate and Alert Patient Behavior: Appropriate and Cooperative Mood Description: Anxious (mildly) and Sad (mildly) Affect Description: Constricted and Cheerful Patient Cognition Impaired: No Ability to Follow Directions: Good Speech Pattern: Clear and Appropriate Memory Description: Intact Hallucinations: None Delusions: Not Present Thought Process: Intact and Goal Oriented Thought Content: positive for Intact and positive for Goal Oriented Judgement: Good Assessment and Plan Assessment & Plan (1) Major depressive disorder, recurrent, moderate: Status: Acute Code(s): F33.1 - Major depressive disorder, recurrent, moderate Plan Increase zoloft to 100mg daily retrun in 6-8 weeks pt still looking for therapist will reach out to [employer] and shown how to use Psychology today website to find local therapist Medications: New sertraline (Zoloft) 100 mg PO DAILY 90 tabs 0RF Discontinued sertraline Discontinued Reason: Doctor's Order 75 mg (1.5 x 50 mg) PO DAILY 45 tabs 4RF F33.9 - Major depressive disorder, recurrent, unspecified Counseling and coordination of Care Pt. Self Management counseling: Maintenance-social rhythm, Mod caffeine/ETOH intake, Sleep hygiene, Behavior activation, General coping skills and Problem solving Medication management counseling: Effectiveness, Side effects, Dosing range, Duration, Drug interaction and Adherence Diagnosis and Prognosis Counseling: Accuracy of diagnosis, Prognosis over time, Impact of diagnosis on life functions, Impact of family relationship, Problematic behaviors secondary to diagnosis and Adequacy of current interventions Details: I spent 45 minutes reviewing the record, seeing the patient and documenting in the medical record. Counseling provided to the patient/caregiver as outlined below. Addressed patient/caregiver concerns regarding current medication regime including effective adherence. Addressed patient/caregiver concerns regarding diagnosis and prognosis including accuracy of diagnosis, prognosis over time, impact of diagnosis. Addressed patient/caregiver concerns regarding impact of recent stressors. [facility] Medical History Deafness in right ear Hypertension Hypercholesterolemia History of diabetes mellitus, type II Nicotine dependence, cigarettes, uncomplicated Polycystic ovarian syndrome Tubulovillous adenoma (~2021) Hemorrhoid Obesities, morbid Renal stones Generalized anxiety disorder Depression Bronchitis Migraine Vertigo Sciatica, right side DDD (degenerative disc disease), lumbar Post-operative nausea and vomiting COVID-19 vaccine series completed Surgical History History of colonoscopy History of umbilical hernia repair History of laparoscopic adjustable gastric banding S/P trigger finger release History of back surgery History of ear surgery Family History Paternal Grandfather Myocardial infarct Paternal Uncle Prostate cancer Alcohol abuse Paternal Aunt Skin cancer Maternal Aunt Breast cancer Social History Housing: House Are you a primary healthcare sales representative to a significant other at home: No Do you presently have visiting nurse or other home services: No Alcohol intake: former Comment: UNSTEADY GAIT Patient Tobacco Use Status: Current everyday Tobacco user Tobacco use type: Cigarette Cigarette Packs Per Day: 1 Cigarettes Per Day: 20.0 Years Smoked: 30 e-Cigarette/Vaping Use: Never Used Second Hand Smoke Exposure: Yes service: No Current occupational status: employed 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 children at home are 7 and 12 Substance History: none Trauma History: caretake when very young Coding Level of Care Code Est Pt Level 4 (55094) Therapy 30m w/E&M (66280) Diagnoses Major depressive disorder, recurrent, moderate F33.1
== END 2024-07-07 17:39 | disposition home or self-care (01) ==
LOC: HO.HOP 16:31
PROVIDERS: PCP Internal Medicine; Visit Provider Clinical Nurse Specialist Psychiatric/Mental Health
DX: F33.1 Major depressive disorder, recurrent, moderate (principal)
CPT/HCPCS: 90833; 99214

== ENCOUNTER → 2024-07-07 16:31 | Outpatient (BNVA) | payer BC, SELFPAY | PROVIDERS: PCP Internal Medicine; Visit Provider Clinical Nurse Specialist Psychiatric/Mental Health ==

== ENCOUNTER 2024-08-08 08:20 | Outpatient (AMB) | payer BC, SELFPAY ==
[2024-08-08 08:28] VITALS: BP 132/80; PULSE 96; TEMP 36.3; O2SAT 96; BMI 40.0
--- NOTE | 2024-08-08 08:28 | AM.OFFWIN_ITS ---
Intake Vital Signs 08/08/24 08:28 Height 5 ft 5 in Weight 240 lb 6 oz BMI 40.0 BP 132/80 Blood Pressure Location Lt brachial Position Sitting Pulse 96 Pulse Source Pulse Oximeter Temp 97.4 F Temp Source Temporal Artery Scan Pulse Oximetry (%) 96 Oxygen Delivery Method Room Air Intake Visit Reasons: EP-sinus infection Intake Note: Judith is a 54 year old female who presents to the office today for c/o sinus pressure, headache, ear pressure. Pt states this started about 10 days ago. Patient Tobacco Use Status: Current everyday Tobacco user Allergies lisinopril Allergy (Intermediate, Verified 08/08/24 08:37) Rash paroxetine [Paxil] Adverse Reaction (Intermediate, Verified 08/08/24 08:37) weight gain HPI HPI Comments History of Present Illness Details Patient is a 54-year-old female with a past medical history of asthma complaining of 10 days of a headache, worsening vertigo, shortness of breath, sinus pressure, right ear pressure and a cough. She tells me she takes short frequent breaths because she takes a deep breath, she will cough uncontrollably. She denies any fevers, wheezing or chest pain. She has tried taking Tylenol sinus medication as well as Mucinex and those seem to help temporarily. She has not tested at home for COVID. She does have a history of asthma and has been using her albuterol inhaler more frequently than normal. She tells me her daughter was recently sick and put on antibiotics but they do not seem to have helped. [facility] Medical History Deafness in right ear Hypertension Hypercholesterolemia History of diabetes mellitus, type II Nicotine dependence, cigarettes, uncomplicated Polycystic ovarian syndrome Tubulovillous adenoma (~2021) Hemorrhoid Obesities, morbid Renal stones Generalized anxiety disorder Depression Bronchitis Migraine Vertigo Sciatica, right side DDD (degenerative disc disease), lumbar Post-operative nausea and vomiting COVID-19 vaccine series completed Surgical History History of colonoscopy History of umbilical hernia repair History of laparoscopic adjustable gastric banding S/P trigger finger release History of back surgery History of ear surgery Family History Paternal Grandfather Myocardial infarct Paternal Uncle Prostate cancer Alcohol abuse Paternal Aunt Skin cancer Maternal Aunt Breast cancer Social History Housing: House Are you a primary disabilities caregiver to a significant other at home: No Do you presently have visiting nurse or other home services: No Alcohol intake: former Comment: UNSTEADY GAIT Patient Tobacco Use Status: Current everyday Tobacco user Tobacco use type: Cigarette Cigarette Packs Per Day: 1 Cigarettes Per Day: 20.0 Years Smoked: 30 e-Cigarette/Vaping Use: Never Used Second Hand Smoke Exposure: Yes service: No Current occupational status: employed 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 Cognitive needs: No Hearing needs: No Vision needs: Yes Female Reproductive History Menstrual Age of Menarche: 11 Review of Systems Const All systems reviewed & are unremarkable except as noted in HPI and below Physical Exam Vital Signs: Last Vital Signs Temp 97.4 F 08/08/24 08:28 Pulse 96 08/08/24 08:28 BP 132/80 08/08/24 08:28 Pulse Ox 96 08/08/24 08:28 Oxygen Delivery Method Room Air 08/08/24 08:28 BMI result Body Mass Index 40.0 Const General: cooperative, healthy appearing, comfortable and no acute distress Orientation/consciousness: patient oriented x3 Limitations: no limitations HEENT Head: Yes normal to inspection Ears: hearing grossly normal bilaterally, external ears normal and TM's normal bilaterally General nose exam: Normal external nose present, Normal nares present and No nasal discharge present Face and sinus: Yes normal facial exam and Yes sinus tenderness (Bilateral frontal and bilateral maxillary) Mouth: Normal oral and palatal mucosa present and moist mucous membranes Throat: Yes tonsils normal, Yes uvula midline and Yes posterior oropharynx abnormal (Erythema) Eyes General: appearance normal, both eyes and all related structures Neck Neck: Yes normal visual inspection Resp Effort & Inspection: normal respiratory effort, able to speak in complete sentences, Actively coughing, no respiratory distress, not tachypneic, no tripod positioning and no use of accessory muscles Auscultation: wheezes expiratory wheezes and throughout and vesicular breath sounds bilateral Cardio Rate: regular rate Rhythm: regular rhythm Heart sounds: normal S1 and S2 Skin General skin exam: no rashes or lesions noted Neuro General: patient oriented x3 Extrem General: Yes normal to inspection and Yes no clubbing, cyanosis or edema Assessment & Plan Assessment & Plan (1) URI (upper respiratory infection): Code(s): J06.9 - Acute upper respiratory infection, unspecified Qualifiers: URI type: unspecified URI Qualified Code(s): J06.9 - Acute upper respiratory infection, unspecified Plan: Vital signs are stable and patient well-appearing, however lung sounds were vesicular with expiratory wheezes. Chest x-ray did show a pneumonia so I sent Z-Naveen, Augmentin for community- acquired pneumonia; Tessalon Perles and a prednisone burst. Plan See above Orders: Orders XR chest 2V Today R05.9 - Cough, unspecified SARS-CoV2/FLU/RSV Today J06.9 - Acute upper respiratory infection, unspecified Coding Level of Care Code Est Pt Level 4 (09283) Diagnoses Upper respiratory tract infection, unspecified type J06.9 URI type: unspecified URI
== END 2024-08-08 09:19 | disposition home or self-care (01) ==
PROVIDERS: PCP Internal Medicine; Visit Provider Physician Assistant
DX: J06.9 Acute upper respiratory infection, unspecified (principal)

== ENCOUNTER 2024-08-08 08:20 | Outpatient (REF) | payer BC, SELFPAY ==
[2024-08-08 10:36] LABS: Influenza A PCR NEGATIVE (Negative); Influenza B PCR NEGATIVE (Negative); Resp Syncy Virus RNA Qual PCR NEGATIVE (Negative); SARS COV2 PCR INHOUSE NEGATIVE (Negative)
== END 2024-08-08 08:21 | disposition home or self-care (01) ==
LOC: HO.LNP 08:20
PROVIDERS: PCP Internal Medicine; Visit Provider Physician Assistant
DX: J06.9 Acute upper respiratory infection, unspecified (principal)
CPT/HCPCS: 0241U

== ENCOUNTER 2024-08-08 09:01 | Outpatient (REF) | payer BC, SELFPAY ==
--- NOTE | ~2024-08-08 | XR_ITS ---
EXAMINATION: XR CHEST CLINICAL INFORMATION: R05.9 - Cough, unspecified COMPARISON: 04/19/2024 TECHNIQUE: 2 views of the chest were obtained. FINDINGS: Dextroscoliosis of the thoracic spine. Heart size is normal. There is no gross pneumothorax. No significant pleural effusion. Increased moderate bibasilar opacities. XR/XR chest 2V IMPRESSION: Increased moderate bibasilar opacities. This study was presented today August 08 2024 for interpretation. Stat results provided at this time as requested by referring provider. Electronically signed by: Pascale Diallo MD 08/08/2024 11:36 AM ISREAL
== END 2024-08-08 09:02 | disposition home or self-care (01) ==
LOC: HO.HMGCX 09:01
PROVIDERS: PCP Internal Medicine; Visit Provider Physician Assistant
DX: R05.9 Cough, unspecified (principal)
CPT/HCPCS: 71046

== ENCOUNTER 2024-08-23 15:55 | Outpatient (AMB) | payer BC, SELFPAY ==
--- NOTE | 2024-08-23 15:58 | A.OFFPC_ITS ---
Vital Signs 08/23/24 16:00 Height 5 ft 5 in Weight 234 lb BMI 38.9 BP 132/62 Blood Pressure Location Lt brachial Position Sitting Pulse 74 Pulse Source Pulse Oximeter Pulse Oximetry (%) 97 Oxygen Delivery Method Room Air Intake Visit Reasons: 3mth f/u Allergies lisinopril Allergy (Intermediate, Verified 08/23/24 16:00) Rash paroxetine [Paxil] Adverse Reaction (Intermediate, Verified 08/23/24 16:00) weight gain Tobacco use date assessed: 08/23/24 Dental Screening Dental Screen Date: 05/09/24 HPI 3mth f/u HPI Details 54-year-old obese female(noted) 6 lb devaughn ght loss with diabetes mellitus hypercholesterolemia hypertension recurrent depression last seen in April 2024. Patient is up-to-date with a mammogram and colon test was last done in 2022. Urgent Center visit 08/08/2024 for sinus infection diagnosis of upper respiratory tract infection and workup was done but the x-ray did show bibasilar opacities. Treatment done for Zithromax and Augmentin, prednisone and Tessalon. Patient also has been having psychiatric evaluation Zoloft increased. April notes reviewed see Orthopedics for right elbow injury which occurred in 02/18/2024 right radial head fracture advised refraining from lifting pushing pulling. X-ray showing routine healing. reinjured R elbow but better now. still smoking . still seeing psychiatry-but is asking for referral for counseling.. Patient had some arm pain and was asking for some narcotic pain medication and was advised to hold off as the patient has been prescribed tramadol for pain. [facility] Medical History (Updated 08/23/24 @ 16:40 by Augustin Steward MD) Type 2 diabetes mellitus with hyperglycemia (~1997) Hemorrhoid Constipation Obesities, morbid Nicotine dependence, cigarettes, uncomplicated History of diabetes mellitus, type II Deafness in right ear Hypertension Hypercholesterolemia Polycystic ovarian syndrome Tubulovillous adenoma (~2021) Renal stones Generalized anxiety disorder Depression Bronchitis Migraine Vertigo Sciatica, right side DDD (degenerative disc disease), lumbar Post-operative nausea and vomiting COVID-19 vaccine series completed Surgical History History of colonoscopy History of umbilical hernia repair History of laparoscopic adjustable gastric banding S/P trigger finger release History of back surgery History of ear surgery Family History (Reviewed 08/08/24 @ 08:29 by Haily Salamanca [facility]) Paternal Grandfather Myocardial infarct Paternal Uncle Prostate cancer Alcohol abuse Paternal Aunt Skin cancer Maternal Aunt Breast cancer Social History (Reviewed 08/08/24 @ 08:29 by Haily Salamanca [facility]) Housing: House Are you a primary health care coach to a significant other at home: No Do you presently have visiting nurse or other home services: No Alcohol intake: former Comment: UNSTEADY GAIT Patient Tobacco Use Status: Current everyday Tobacco user Tobacco use type: Cigarette Cigarette Packs Per Day: 1 Cigarettes Per Day: 20.0 Years Smoked: 30 e-Cigarette/Vaping Use: Never Used Second Hand Smoke Exposure: Yes service: No Current occupational status: employed 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 1. Little interest or pleasure in doing things: nearly every day 2. Feeling down, depressed, or hopeless: nearly every day 3. Trouble falling or staying asleep, or sleeping too much: nearly every day 4. Feeling tired or having little energy: nearly every day 5. Poor appetite or overeating: nearly every day 6. Feeling bad about yourself - or that you are a failure or have let yourself or your family down: more than half the days 7. Trouble concentrating on things, such as reading the newspaper or watching television: not at all 8. Moving or speaking so slowly that other people could have noticed. Or the opposite - being so fidgety or restless that you have been moving around a lot more than usual: not at all 9. Thoughts that you would be better off or of hurting yourself in some way: not at all Total score: 17 Depression Screening Interpretation: Positive Depression Screening Done: Yes Source: Developed by Drs. Thomas Santacruz, Barbara Hernandez, Guille Zarate and colleagues, with an educational jori from [employer]. Thrive Questionnaire Date Thrive assessed: 05/09/24 AUDIT C Alcohol Use Questionnaire (AUDIT-C) 2. How many drinks containing alcohol do you have on a typical day when you are drinking?: 1 or 2 3. How often do you have six or more drinks on one occasion?: Never Total Score: 0 ARASH-7 AMB Questionnaire ARASH-7 Date ARASH - 7 assessed: 05/09/24 Source: Developed by Drs. Thomas Santacruz, Barbara Hernandez, Guille Zarate and colleagues, with an educational jori from [employer]. Physical exam (Primary Care) Vital Signs: Last Vital Signs Pulse 74 08/23/24 16:00 BP 132/62 08/23/24 16:00 Pulse Ox 97 08/23/24 16:00 Oxygen Delivery Method Room Air 08/23/24 16:00 BMI result Body Mass Index 38.9 Tobacco/Smoking Status: Tobacco use Status Tobacco use date assessed 08/23/24 08/23/24 16:00 Patient Tobacco Use Status Current everyday Tobacco 08/23/24 16:00 Tobacco use type Cigarette 08/23/24 16:00 e-Cigarette/Vaping Use Never Used 08/23/24 16:00 PHQ-9: PHQ-9 Score PHQ-9: Total score 17 08/23/24 16:14 Depression Screening Interpretation: Positive Thrive Assessment: Date of Thrive Assessment Date Thrive assessed 05/09/24 08/23/24 16:00 Const General: alert; No acute distress Eyes Conjunctivae: conjunctivae normal Resp Auscultation: clear to auscultation bilaterally Cardio Rate: regular rate Rhythm: regular rhythm GI Inspection: Yes normal to inspection Extrem General: Yes normal to inspection and No edema Results AMB Hemoglobin A1c AMB Hemoglobin A1c 6.9 % Last Edit by Rebecca Angulo CMA on 08/23/24 16 :15 AMB Urinalysis, Automated UA Leukoctes 0 Conor/uL Last Edit by Rebecca Angulo CMA on 08/23/24 16:16 UA Nitrite Negative Last Edit by Rebecca Angulo CMA on 08/23/24 16:16 UA Urobilinogen 0.2 mg/dL Last Edit by Rebecca Angulo CMA on 08/23/24 16:16 UA Protein 15 mg/dL Last Edit by Rebecca Angulo CMA on 08/23/24 16:16 UA pH 6.0 Last Edit by Rebecca Angulo CMA on 08/23/24 16:16 UA Blood 0 Aidan/uL Last Edit by Rebecca Angulo CMA on 08/23/24 16:16 UA Specific [place] 1.030 Last Edit by Rebecca Angulo CMA on 08/23/24 16:16 UA Ketone Positive Last Edit by Rebecca Angulo CMA on 08/23/24 16:16 UA Bilirubin 1 mg/dL Last Edit by Rebecca Angulo CMA on 08/23/24 16:16 UA Glucose 0 mg/dL Last Edit by Rebecca Angulo CMA on 08/23/24 16:16 Results Reviewed Results Reviewed: Laboratory Last Values Hgb A1c (Clinic) 6.9 % (4.0-6.0) H 08/23/24 16:00 Urine pH (Auto) 6.0 08/23/24 16:13 Specific [place] (Auto) 1.030 08/23/24 16:13 Urine Protein (Auto) 15 mg/dL 08/23/24 16:13 Glucose (UA)(Auto) 0 mg/dL 08/23/24 16:13 Urine Ketones (Auto) Positive 08/23/24 16:13 Urine Blood (Auto) 0 Aidan/uL 08/23/24 16:13 Urine Nitrite (Auto) Negative 08/23/24 16:13 Urine Bilirubin (Auto) 1 mg/dL 08/23/24 16:13 Urine Urobilinogen (Auto) 0.2 mg/dL 08/23/24 16:13 Leukocyte Esterase (Auto) 0 Conor/uL 08/23/24 16:13 Coding Level of Care Code Est Pt Level 4 (33803) Complex EM visit Add On G2211 Diagnoses Type 2 diabetes mellitus with hyperglycemia, without long-term current use of insulin E11.65 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 Obesity (BMI 30-39.9) E66.9 Tobacco abuse Z72.0 Hypercholesterolemia E78.00 Primary hypertension I10 Hypertension type: primary hypertension Major depressive disorder, recurrent, moderate F33.1 Closed nondisplaced fracture of head of right radius, initial encounter S52.124A Encounter type: initial encounter Fracture type: closed Fracture alignment: nondisplaced Assessment & Plan Assessment & Plan (1) Type 2 diabetes mellitus with hyperglycemia: Onset Date: ~1997 Comment: dx age 28-was on metformin age [id number] normalized s/p childbirth age 47-no longer on Rx-A1C 5.1 since 2017 Code(s): E11.65 - Type 2 diabetes mellitus with hyperglycemia Category: Medical Qualifiers: 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 Hemoglobin A1c goal of less than 6.5. Patient is on metformin 500 mg twice a day Mounjaro 5 mg (2) Obesity (BMI 30-39.9): Code(s): E66.9 - Obesity, unspecified Category: Medical Plan: Diet and exercise (3) Tobacco abuse: Code(s): Z72.0 - Tobacco use Category: Medical Plan: Patient is strongly advised to stop smoking! Pulmonary function test is requested (4) Hypercholesterolemia: Code(s): E78.00 - Pure hypercholesterolemia, unspecified Category: Medical Plan: Avoid fried foods, chicken skin, eggs, butter margarine, pastries and meat. Be it pork or beef they have a lot of cholesterol LDL goal of less than 100 and triglyceride of less than 150 patient needs to repeat blood test (5) Hypertension: Code(s): I10 - Essential (primary) hypertension Category: Medical Qualifiers: Hypertension type: primary hypertension Qualified Code(s): I10 - Essential (primary) hypertension Plan: Continue with losartan 100 mg once a day (6) Major depressive disorder, recurrent, moderate: Code(s): F33.1 - Major depressive disorder, recurrent, moderate Category: Medical Plan: Continue with counseling and therapy on sertraline 100 mg once a day referral to schedule for counseling (7) Right radial head fracture: Onset Date: ~01/2024 Comment: (Rt hand dominant/trip&fall/Rt radial head fx - 02/18/24) Code(s): S52.121A - Displaced fracture of head of right radius, initial encounter for closed fracture Category: Medical Qualifiers: Encounter type: initial encounter Fracture type: closed Fracture alignment: nondisplaced Qualified Code(s): S52.124A - Nondisplaced fracture of head of right radius, initial encounter for closed fracture Plan: Patient follows up with orthopedics and stable Orders: Orders AMB Hemoglobin A1c Today Z13.9 - Encounter for screening, unspecified AMB Urinalysis Automated Today N39.0 - Urinary tract infection, site not specified Complete Blood Count Auto Diff Today E78.00 - Pure hypercholesterolemia, unspecified Thyroid Stimulating Hormone Today E78.00 - Pure hypercholesterolemia, unspecified Vitamin B12 and Folate Today E78.00 - Pure hypercholesterolemia, unspecified PFT pulmonary function test Today Z72.0 - Tobacco use Comprehensive Met. Panel Today E78.00 - Pure hypercholesterolemia, unspecified Free T4 (Free Thyroxine) Today E78.00 - Pure hypercholesterolemia, unspecified Lipid Panel Today E78.00 - Pure hypercholesterolemia, unspecified Creatinine Urine Today E11.65 - Type 2 diabetes mellitus with hyperglycemia, E78.00 - Pure hypercholesterolemia, unspecified Microalbumin, Random (w Creat) Today E11.65 - Type 2 diabetes mellitus with hyperglycemia, E78.00 - Pure hypercholesterolemia, unspecified Referrals Psychiatry Referral F33.9 - Major depressive disorder, recurrent, unspecified Medications: Changed From tirzepatide 5 mg (0.5 mL) subcut QWEEK 4 weeks 2 mL 2RF E11.65 - Type 2 diabetes mellitus with hyperglycemia To tirzepatide 7.5 mg (0.5 mL) subcut QWEEK 4 weeks 2 mL 2RF E11.65 - Type 2 diabetes mellitus with hyperglycemia
[2024-08-23 16:00] VITALS: BP 132/62; PULSE 74; O2SAT 97; BMI 38.9
== END 2024-08-23 16:47 | disposition home or self-care (01) ==
PROVIDERS: PCP Internal Medicine; Visit Provider Internal Medicine
DX: E11.65 Type 2 diabetes mellitus with hyperglycemia (principal); E66.9 Obesity, unspecified; F33.1 Major depressive disorder, recurrent, moderate; Z68.38 Body mass index [BMI] 38.0-38.9, adult; Z72.0 Tobacco use; E78.00 Pure hypercholesterolemia, unspecified; I10 Essential (primary) hypertension; S52.124A Nondisplaced fracture of head of right radius, initial encounter for closed fracture; N39.0 Urinary tract infection, site not specified

== ENCOUNTER → 2024-08-23 15:55 | Outpatient (BNVA) | payer BC, SELFPAY | PROVIDERS: PCP Internal Medicine; Visit Provider Internal Medicine | DX: E11.65 Type 2 diabetes mellitus with hyperglycemia (principal); E66.9 Obesity, unspecified; E78.00 Pure hypercholesterolemia, unspecified; I10 Essential (primary) hypertension; F33.1 Major depressive disorder, recurrent, moderate; S52.121D Displaced fracture of head of right radius, subsequent encounter for closed fracture with routine healing; Z79.84 Long term (current) use of oral hypoglycemic drugs; Z79.899 Other long term (current) drug therapy; Z72.0 Tobacco use | CPT/HCPCS: 81003; 83036; 96127 ==

== ENCOUNTER 2024-09-20 15:21 | Outpatient (AMB) | payer BC, SELFPAY ==
--- NOTE | 2024-09-20 15:30 | A.OFFPC_ITS ---
Vital Signs 09/20/24 15:31 Height 5 ft 5 in Weight 233 lb 8 oz BMI 38.9 BP 130/60 Blood Pressure Location Lt brachial Position Sitting Pulse 83 Pulse Source Pulse Oximeter Pulse Oximetry (%) 96 Oxygen Delivery Method Room Air Intake Visit Reasons: annual exam Intake Note: Patient is here today for a physical. Machine Learning Intern Required: No Inspector Hairspring Truing: Not Required per policy Accompanied by: Self / Same As Patient Allergies lisinopril Allergy (Intermediate, Verified 09/20/24 15:41) Rash paroxetine [Paxil] Adverse Reaction (Intermediate, Verified 09/20/24 15:41) weight gain Medication List - Last Reconciled 09/20/24 by Courtney Jones PA-C albuterol sulfate 90 mcg/actuation 2 puffs inhalation Q6H PRN blood sugar diagnostic (FreeStyle Lite Strips) As directed check the BS QD blood-glucose meter (FreeStyle Lite Meter kit) As directed fluticasone propionate 50 mcg/actuation (Flonase Allergy Relief) 2 sprays intranasal DAILY folic acid 1 mg PO DAILY 90 days lancets (FreeStyle Lancets) As directed check BS QD losartan 100 mg PO DAILY metformin 500 mg PO BIDWMEAL sertraline (Zoloft) 100 mg PO DAILY tirzepatide 7.5 mg (0.5 mL) subcut QWEEK 4 weeks tramadol 50 mg PO BID PRN 30 days Tobacco use date assessed: 09/20/24 Dental Screening Dental Screen Date: 05/09/24 HPI annual exam HPI Details 54-year-old female with past medical his tory of diabetes mellitus, hypercholesterolemia, hypertension, recurrent depression last seen August 2024 coming in for annual exam. Mammogram completed December 2023, 1 year follow up.? Colonoscopy completed 2021 tubular adenoma follow up in 3-5 years. Last well- woman exam was March 2023 Pap smear was completed at that time. Patient has been seeing Yanira Jesus and has been up titrating her sertraline feels good on her current 100 mg dose. She states for the last several months she has been dealing with sinus pressure and recently had right ear pain which began about a few days ago. The sinus pressure is something chronic for her and she would like to see a specialist for this. She has not yet completed her pulmonary function testing and does continue to smoke cigarettes. [facility] Medical History Type 2 diabetes mellitus with hyperglycemia (~1997) Hemorrhoid Constipation Obesities, morbid Nicotine dependence, cigarettes, uncomplicated History of diabetes mellitus, type II Deafness in right ear Hypertension Hypercholesterolemia Polycystic ovarian syndrome Tubulovillous adenoma (~2021) Renal stones Generalized anxiety disorder Depression Bronchitis Migraine Vertigo Sciatica, right side DDD (degenerative disc disease), lumbar Post-operative nausea and vomiting COVID-19 vaccine series completed Surgical History History of colonoscopy History of umbilical hernia repair History of laparoscopic adjustable gastric banding S/P trigger finger release History of back surgery History of ear surgery Family History Paternal Grandfather Myocardial infarct Paternal Uncle Prostate cancer Alcohol abuse Paternal Aunt Skin cancer Maternal Aunt Breast cancer Social History Housing: House Are you a primary intensive care anaesthetist to a significant other at home: No Do you presently have visiting nurse or other home services: No Alcohol intake: former Comment: UNSTEADY GAIT Patient Tobacco Use Status: Current everyday Tobacco user Tobacco use type: Cigarette Cigarette Packs Per Day: 1 Cigarettes Per Day: 20.0 Years Smoked: 30 Packs Per Year: 30 Packs per year/per ci.00 e-Cigarette/Vaping Use: Never Used Second Hand Smoke Exposure: Yes service: No Current occupational status: employed 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 1. Little interest or pleasure in doing things: several days 2. Feeling down, depressed, or hopeless: several days 3. Trouble falling or staying asleep, or sleeping too much: not at all 4. Feeling tired or having little energy: several days 5. Poor appetite or overeating: several days 6. Feeling bad about yourself - or that you are a failure or have let yourself or your family down: not at all 7. Trouble concentrating on things, such as reading the newspaper or watching television: not at all 8. Moving or speaking so slowly that other people could have noticed. Or the opposite - being so fidgety or restless that you have been moving around a lot more than usual: not at all 9. Thoughts that you would be better off or of hurting yourself in some way: not at all Total score: 4 Depression Screening Interpretation: Positive Depression Screening Follow-up: Existing condition and In treatment Depression Screening Done: Yes Source: Developed by Drs. Thomas Santacruz, Barbara Hernandez, Guille Zarate and colleagues, with an educational jori from [employer]. Thrive Questionnaire Date Thrive assessed: 09/20/24 I am a: Patient What is your living situation today?: I have a steady place to live Within the past 12 months, did the food you bought not last and you didn't have the money to get more?: Never true Within the past 12 months, did you worry whether your food would run out before you got money to buy more?: Never true Do you have trouble paying for medicines?: No Do you have trouble getting transportation to medical appointments?: No Do you have trouble paying your heating and electricity bill?: No Do you have trouble taking care of your child, family member or friend?: No Do you have trouble with day-to-day activities such as bathing, preparing meals, shopping, managing finances, etc.?: Yes Are you currently unemployed and looking for a job?: No Are you interested in more education?: No Please select the resources that you would like help with: Daily support Currently or been in a relationship where the following occur: No concerns reported THRIVE Score: 0 AUDIT C Alcohol Use Questionnaire (AUDIT-C) 1. How often do you have a drink containing alcohol?: Never Total Score: 0 ARASH-7 AMB Questionnaire ARASH-7 Date ARASH - 7 assessed: 09/20/24 Feeling nervous, anxious, or on edge: 1 = Several days Not being able to stop or control worryin = Several days Worrying too much about different things: 1 = Several days Trouble relaxin = Several days Being so restless that it is hard to sit still: 0 = Not at all Becoming easily annoyed or irritable: 1 = Several days Feeling afraid as if something awful might happen: 0 = Not at all Total ARASH-7 score (0-4 normal; 5-9 mild; 10-14 moderate; 15-21 severe): 5 Source: Developed by Drs. Thomas Santacruz, Barbara Hernandez, Guille Zarate and colleagues, with an educational jori from [employer]. Review of Systems Const Denies body aches, Denies fatigue, Denies fever(s), Denies frequent falls, Reports headache(s) and Denies weakness Eyes Reports no additional complaints and Denies change in vision ENT Details: right ear pain Denies dysphagia, Denies dizziness, Denies facial pain, Reports headache(s), Denies nasal congestion, Denies odynophagia and Reports sinus pain Card Denies chest pain, Denies syncope, Denies lightheadedness and Denies dyspnea Resp Denies cough and Denies dyspnea GI Denies abdominal pain, Denies constipation, Denies dysphagia, Denies dyspepsia, Denies diarrhea, Denies nausea, Denies odynophagia and Denies vomiting Denies urinary frequency, Denies dysuria, Denies urinary hesitancy and Denies urinary urgency Musc Denies back pain and Denies myalgias Skin/Breast Reports system reviewed and no additional complaints, except as documented Neuro Denies dizziness, Denies syncope, Denies frequent falls, Reports headache(s) and Denies weakness Psych Reports no additional complaints Endo Denies fatigue Physical exam (Primary Care) Vital Signs: Last Vital Signs Pulse 83 09/20/24 15:31 BP 130/60 09/20/24 15:31 Pulse Ox 96 09/20/24 15:31 Oxygen Delivery Method Room Air 09/20/24 15:31 BMI result Body Mass Index 38.9 Tobacco/Smoking Status: Tobacco use Status Tobacco use date assessed 09/20/24 09/20/24 15:33 Patient Tobacco Use Status Current everyday Tobacco 09/20/24 15:33 Tobacco use type Cigarette 09/20/24 15:33 e-Cigarette/Vaping Use Never Used 09/20/24 15:33 Are you ready to quit: No Tobacco cessation counseling provided: Yes Items discussed: Nicotine replacement Relapse Prevention: discussed extending NRT, discussed negative mood or depression after quitting, weight gain after smoking is common and discussed dietary, exercise and/or lifestyle changes Number of minutes spent counselin CPT code: 89648 - 4-10 Minutes PHQ-9: PHQ-9 Score PHQ-9: Total score 4 09/20/24 16:00 Depression Screening Interpretation: Positive Depression Screening Follow-up: Existing condition and In treatment Thrive Assessment: Date of Thrive Assessment Date Thrive assessed 09/20/24 09/20/24 15:33 Currently or been in a relationship where the following occur: No concerns reported Const General: cooperative, healthy appearing, comfortable and no acute distress Orientation/consciousness: patient oriented x3 HENMT Head: Yes normocephalic Ears: hearing grossly normal bilaterally, external ears normal, TM's normal bilaterally and EAC's normal General nose exam: Normal external nose present Face and sinus: Yes normal facial exam and Yes sinuses nontender Mouth: Normal oral and palatal mucosa present and tongue normal Throat: Yes posterior oropharynx normal Eyes General: appearance normal, both eyes and all related structures Conjunctivae: conjunctivae normal Pupils: Equal, round and reactive pupils present EOM: EOMs intact bilaterally and No Nystagmus present Neck Neck: Yes normal visual inspection, Yes full ROM and Yes no lymphadenopathy Chest Chest palpation & inspection: normal inspection of the chest Resp Effort & Inspection: normal respiratory effort Auscultation: clear to auscultation bilaterally, no crackles, no rales, no rhonchi, no wheezes and breath sounds present Cardio Rate: regular rate Rhythm: regular rhythm Peripheral pulses: radial pulses present and dorsalis pedis present GI Inspection: Yes normal to inspection and No Abdominal wall edema Palpation (GI): Soft to palpation, not firm and nontender Auscultation: normal bowel sounds Rectal Exam - Female: deferred General: Yes no CVA tenderness Back/Spine/Pelvis Back: no CVA tenderness Skin General skin exam: no rashes or lesions noted Neuro General: patient oriented x3 Cranial nerves: Yes Equal, round and reactive pupils present, Yes Midline tongue present, Yes Ability to bilaterally elevate shoulders present and No Nystagmus present Gait exam (Neuro): Normal gait present Extrem General: Yes normal to inspection, Yes full ROM, No no pedal edema and No edema Psych Speech and movement: Normal speech and movement present Affect: normal affect Insight: Good insight present (Psych) Judgement: Good judgement present (Psych) Coding Level of Care Code Est Pt Prev Care 40-64y(73262) Diagnoses Tobacco abuse Z72.0 Type 2 diabetes mellitus with hyperglycemia, without long-term current use of insulin E11.65 Diabetes mellitus intermediate frame tender insulin use: without senior living use Primary hypertension I10 Hypertension type: primary hypertension Hypercholesterolemia E78.00 Generalized anxiety disorder F41.1 DDD (degenerative disc disease), lumbar M51.36 Tubulovillous adenoma D36.9 Major depressive disorder, recurrent, moderate F33.1 Annual physical exam Z00.00 Sinus pressure J34.89 Additional Codes Vital Signs *Quality* - CPT code: 90107 - 4-10 Minutes ([id number]) Assessment & Plan Assessment & Plan (1) Tobacco abuse: Code(s): Z72.0 - Tobacco use Category: Medical Plan: Smoking cigarettes and the use of tobacco can be harmful. We discussed the importance of stopping and options to aid in smoking cessation. Referral updated for annual lung cancer screening program (2) Type 2 diabetes mellitus with hyperglycemia: Onset Date: ~1997 Comment: dx age 28-was on metformin age [id number] normalized s/p childbirth age 47-no longer on Rx-A1C 5.1 since 2017 Code(s): E11.65 - Type 2 diabetes mellitus with hyperglycemia Category: Medical Qualifiers: Diabetes mellitus senior living insulin use: without senior living use Qualified Code(s): E11.65 - Type 2 diabetes mellitus with hyperglycemia Plan: Decrease the amount of carbohydrates such as pasta, bread, rice, and potatoes and limit the amount of sweets. Although fruits are generally healthy they should be eaten in moderation as they are still high in sugar. Hemoglobin A1c goal of less than 7%. Continue on Tirzepatide and metformin. (3) Hypertension: Code(s): I10 - Essential (primary) hypertension Category: Medical Qualifiers: Hypertension type: primary hypertension Qualified Code(s): I10 - Essential (primary) hypertension Plan: Continue on current blood pressure medication. Avoid salt intake and encourage healthy diet and regular exercise. (4) Hypercholesterolemia: Code(s): E78.00 - Pure hypercholesterolemia, unspecified Category: Medical Plan: Avoid foods that are high in cholesterol such as red meat, fried foods, eggs and baked goods. Triglyceride goal of less than 150 and LDL goal of less than 100. Not currently on medical management. Repeat blood work for next appointment. (5) Generalized anxiety disorder: Code(s): F41.1 - Generalized anxiety disorder Category: Medical Plan: Continue on sertraline feeling stable in his medication. (6) DDD (degenerative disc disease), lumbar: Comment: L4-5 disc bulge with surgery 23 years old Code(s): M51.36 - Other intervertebral disc degeneration, lumbar region Category: Medical Plan: Currently on tramadol for pain management. (7) Tubulovillous adenoma: Onset Date: ~2021 Comment: (TA/TVA on 12/2021 scope - no polyps on 05/2023 scope - repeat 3yrs) Code(s): D36.9 - Benign neoplasm, unspecified site Category: Medical Plan: Repeat colonoscopy 2025. (8) Major depressive disorder, recurrent, moderate: Comment: Stephy Bernard Code(s): F33.1 - Major depressive disorder, recurrent, moderate Category: Medical Plan: Currently on sertraline and doing well on this medication. Currently working with a therapist who has been adjusting her medications. (9) Annual physical exam: Code(s): Z00.00 - Encounter for general adult medical examination without abnormal findings Category: Medical Plan: Patient is up-to-date on all recommended routine screenings and vaccinations for her age. Recommended patient to follow up gynecology for regular well woman exams. Patient reminded about blood work to be done before her next appointment. (10) Sinus pressure: Code(s): J34.89 - Other specified disorders of nose and nasal sinuses Category: Medical Plan: Patient complaining of chronic sinus pressure ongoing for the last several months denies any fevers or worsening symptoms over the last several weeks. She does mentioned right ear pain that began about 2 days ago on exam no evidence of infection. Advised patient to use decongestant [id number] for no more than 3 days' and continue to use Flonase and sinus rinses. Plan This note was constructed using voice recognition software. While every effort has been made to ensure accuracy and shank cutter, still areas may have been included sometimes these areas may affect the content or meeting of the given symptoms. Total time spent caring for the patient today was 30 minutes. This includes time spent before the visit reviewing the chart, time spent during the visit, and time spent after the visit and documentation. Orders: Referrals Ear/Nose/Throat Referral J34.89 - Other specified disorders of nose and nasal sinuses Lung Cancer Screening Referral Z72.0 - Tobacco use Medications: Refilled albuterol sulfate 90 mcg/actuation 2 puffs inhalation Q6H PRN 6.7 grams 0RF shortness of breath or wheezing blood-glucose meter (FreeStyle Lite Meter kit) As directed 1 ea 0RF E11.65 - Type 2 diabetes mellitus with hyperglycemia, F33.9 - Major depressive disorder, recurrent, unspecified fluticasone propionate 50 mcg/actuation (Flonase Allergy Relief) administer into each nostril 2 sprays intranasal DAILY 16 grams 4RF folic acid 1 mg PO DAILY 90 days 90 tabs 3RF lancets (FreeStyle Lancets) As directed check BS QD 100 ea 3RF E11.65 - Type 2 diabetes mellitus with hyperglycemia, F33.9 - Major depressive disorder, recurrent, unspecified sertraline (Zoloft) 100 mg PO DAILY 90 tabs 0RF blood sugar diagnostic (FreeStyle Lite Strips) As directed check the BS QD 100 ea 3RF E11.65 - Type 2 diabetes mellitus with hyperglycemia, F33.9 - Major depressive disorder, recurrent, unspecified losartan 100 mg PO DAILY 30 tabs 3RF I10 - Essential (primary) hypertension
[2024-09-20 15:31] VITALS: BP 130/60; PULSE 83; O2SAT 96; BMI 38.9
== END 2024-09-20 16:04 | disposition home or self-care (01) ==
PROVIDERS: PCP Internal Medicine
DX: Z00.00 Encounter for general adult medical examination without abnormal findings (principal); Z72.0 Tobacco use; E11.65 Type 2 diabetes mellitus with hyperglycemia; I10 Essential (primary) hypertension; E78.00 Pure hypercholesterolemia, unspecified; F41.1 Generalized anxiety disorder; M51.369 Other intervertebral disc degeneration, lumbar region without mention of lumbar back pain or lower extremity pain; D36.9 Benign neoplasm, unspecified site; F33.1 Major depressive disorder, recurrent, moderate; J34.89 Other specified disorders of nose and nasal sinuses

== ENCOUNTER → 2024-09-20 15:21 | Outpatient (BNVA) | payer BC, SELFPAY | PROVIDERS: PCP Internal Medicine ==

== ENCOUNTER 2024-12-02 10:55 | Outpatient (AMB) | payer BC, SELFPAY ==
--- NOTE | 2024-12-02 07:53 | A.OFFVIS_ITS ---
Intake Visit Reasons: Current Smoker Allergies lisinopril Allergy (Intermediate, Verified 10/15/24 09:36) Rash paroxetine [Paxil] Adverse Reaction (Intermediate, Verified 10/15/24 09:36) weight gain HPI HPI Current Smoker: Details: Initial visit for this 54yo smoker with a 35+PYH. Patient started smoking at 15yo for 39 years at 1ppd. . Denies marijuana use. Denies second hand smoke exposure. Denies exposure to chemicals or substances like asbestos. . Reports family history of lung cancer. Mom - age 60 Denies personal history of cancers. Denies chest CT in last year. . Denies recent travel outside the [place]. Denies recent respiratory illness or recent hospitalization for respiratory issues. Reports of history testing positive for COVID. Admits receiving COVID Vaccine. . Denies fever, chills, new/worsening cough, hemoptysis, hoarseness or dysphagia. Denies significant chest pain, significant dyspnea or unintentional weight loss. Patient Lung Cancer Screening Questionnaire reviewed with patient by provider. . Shared Decision Making Completed. Patient meets criteria. Discussed in detail with patient, the risk vs benefit of LDCT screening. Patient consents to proceed with scan. Discussed smoking cessation. [facility] Medical History (Updated 12/02/24 @ 11:12 by Renate Christianson PA-C) Hypertension Hypercholesterolemia History of diabetes mellitus, type II Polycystic ovarian syndrome Bronchitis Nicotine dependence, cigarettes, uncomplicated Major depressive disorder, recurrent, moderate Generalized anxiety disorder Migraine Hemorrhoid Constipation Deafness in right ear Tubulovillous adenoma (~2021) Renal stones Vertigo Sciatica, right side DDD (degenerative disc disease), lumbar Post-operative nausea and vomiting Obesity COVID-19 vaccine series completed Surgical History History of colonoscopy History of umbilical hernia repair History of laparoscopic adjustable gastric banding S/P trigger finger release History of back surgery History of ear surgery Family History (Updated 12/02/24 @ 11:13 by Renate Christianson PA-C) Paternal Grandfather Myocardial infarct Paternal Uncle Prostate cancer Alcohol abuse Paternal Aunt Skin cancer Maternal Aunt Breast cancer Mother Lung cancer Social History (Updated 12/02/24 @ 11:12 by Renate Christianson PA-C) Housing: House Are you a primary career guidance technician to a significant other at home: No Do you presently have visiting nurse or other home services: No Alcohol intake: former Comment: UNSTEADY GAIT Patient Tobacco Use Status: Current everyday Tobacco user Tobacco use type: Cigarette Cigarette Packs Per Day: 1 Cigarettes Per Day: 20.0 Years Smoked: (onset 15yo, 1ppd x 39yrs, 35+PYH) e-Cigarette/Vaping Use: Never Used Second Hand Smoke Exposure: Yes service: No Current occupational status: employed 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 - Patient meets criteria for LDCT for lung cancer screening purposes and is asymptomatic. - Smoking cessation counseling offered. Patients can always call [phone]. - Will arrange for a LDCT scan of the chest for screening purposes at [facility]. - Risks, benefits, and alternatives were discussed in detail and the patient agrees to proceed. - Risks discussed include but are not limited to: radiation exposure, anxiety during testing and while awaiting results, false negatives, false positives and possibility of additional intervention such as further imaging or surgical procedures for benign disease. - Benefits are obviously detection of lung cancer at an early stage which can lead to improved outcomes. - Discussed the importance of screening program compliance with adherence to yearly LDCT scan as scheduled - or sooner interval scans for personalized screening regimen. - Discussed follow up plan. Our office will send a letter discussing results and if needed set up phone call and office visit based on CT findings. - Patient educated on results categorization and the management decisions for suspicious findings potentially found on the screening LDCT scan. Any patient with a Lung RADS score of 3 or 4 will be reviewed by a multidisciplinary team at [facility] to form a plan of action in regards to scan findings. - If further work up is warranted for a suspicious lung finding this will be followed by the Lung Cancer Screening program in conjunction with the Thoracic Surgery Department at [facility]. - A copy of the office note and LDCT will be sent to the patient's PCP - as well as documentation on any associated further plans of care. - Incidental findings on LDCT are the PCP's responsibility. These findings are indicated with an S finding on the LDCT Assessment. A note discussing the f indings will be sent to the PCP who is then responsible for further management. - All questions answered.? Coding Level of Care Code Lung Cancer Screening G0296 Diagnoses Nicotine dependence, cigarettes, uncomplicated F17.210
== END 2024-12-02 11:28 | disposition home or self-care (01) ==
LOC: HO.HPS 10:55
PROVIDERS: PCP Internal Medicine; Visit Provider Physician Assistant Medical
DX: F17.210 Nicotine dependence, cigarettes, uncomplicated (principal)
CPT/HCPCS: G0296

== ENCOUNTER 2024-12-02 11:12 | Outpatient (REF) | payer BC, SELFPAY ==
--- NOTE | ~2024-12-02 | CT_ITS ---
CLINICAL HISTORY: F17.210 - Nicotine dependence, cigarettes, uncomplicated CT lung cancer screening (LDCT) Comparison: None Technique: Axial CT images of the chest using low-dose technique. Referring provider counseled the patient on shared decision-making for LDCT screening. Additional counseling was provided on smoking cessation. Effective radiation dose total: DLP 51.8 mGycm, CTDIvol 1.7 mGy. Findings: Tree-in-bud opacities and peribronchial consolidation are noted at the left lung base. No pulmonary nodules are otherwise noted. Coronary artery calcifications: none The patient is status post gastric banding procedure. Other: bronchiolitis and developing bronchopneumonia left base. Impression: LungRADS 2 - Benign Appearance: Continue annual screening with low dose Chest CT in 12 months. ##L2# Category 1: Normal; continue annual screening Category 2: Benign appearance or behavior, continue annual screening Category 3: Probably benign, [address] recommended Category 4A: Suspicious, [address] recommended; may consider PET/CT Category 4B: Suspicious, Additional diagnostics and/or tissue sampling recommended Category 4X: Suspicious, Additional diagnostics and/or tissue sampling recommended Category 0: Recalls (incomplete screen due to Incomplete coverage, Noise, Respiratory motion, Expiration, Obscured by acute abnormality) This document has been electronically signed by: Jas Mon MD on 12/03/2024 07:57:50
== END 2024-12-02 11:13 | disposition home or self-care (01) ==
LOC: HO.CT 11:12
PROVIDERS: PCP Internal Medicine; Visit Provider Physician Assistant Medical
DX: Z12.2 Encounter for screening for malignant neoplasm of respiratory organs (principal); F17.210 Nicotine dependence, cigarettes, uncomplicated
CPT/HCPCS: 71271

== ENCOUNTER → 2024-12-02 11:14 | Outpatient (BNV) | payer BC, SELFPAY | PROVIDERS: PCP Internal Medicine; Visit Provider Radiology Diagnostic Radiology | DX: F17.210 Nicotine dependence, cigarettes, uncomplicated (principal) | CPT/HCPCS: 71271 ==

== ENCOUNTER 2024-12-12 16:50 | Outpatient (AMB) | payer BC, SELFPAY ==
--- NOTE | 2024-12-12 17:03 | A.OFFPC_ITS ---
Vital Signs 12/12/24 17:04 Height 5 ft 5 in Weight 221 lb 2 oz BMI 36.8 BP 132/74 Blood Pressure Location Lt brachial Position Sitting Pulse 86 Pulse Source Pulse Oximeter Temp 96.9 F Temp Source Temporal Artery Scan Pulse Oximetry (%) 98 Oxygen Delivery Method Room Air Intake Visit Reasons: DM Allergies lisinopril Allergy (Intermediate, Verified 10/15/24 09:36) Rash paroxetine [Paxil] Adverse Reaction (Intermediate, Verified 10/15/24 09:36) weight gain Medication List - Last Reconciled 12/12/24 by Augustin Steward MD albuterol sulfate 90 mcg/actuation 2 puffs inhalation Q6H PRN blood sugar diagnostic (FreeStyle Lite Strips) As directed check the BS QD blood-glucose meter (FreeStyle Lite Meter kit) As directed fluticasone propionate 50 mcg/actuation (Flonase Allergy Relief) 2 sprays intranasal DAILY folic acid 1 mg PO DAILY 90 days lancets (FreeStyle Lancets) As directed check BS QD losartan 100 mg PO DAILY metformin 500 mg PO BIDWMEAL sertraline (Zoloft) 100 mg PO DAILY tirzepatide 7.5 mg (0.5 mL) subcut QWEEK 4 weeks tramadol 50 mg PO BID PRN 30 days Tobacco use date assessed: 09/20/24 Dental Screening Dental Screen Date: 05/09/24 HPI DM HPI Details feesl sinus congestion. [facility] Medical History (Updated 12/12/24 @ 17:34 by Augustin Steward MD) Hypertension Hypercholesterolemia History of diabetes mellitus, type II Polycystic ovarian syndrome Bronchitis Nicotine dependence, cigarettes, uncomplicated Major depressive disorder, recurrent, moderate Generalized anxiety disorder Migraine Hemorrhoid Constipation Deafness in right ear Tubulovillous adenoma (~2021) Renal stones Vertigo Sciatica, right side DDD (degenerative disc disease), lumbar Post-operative nausea and vomiting Obesity COVID-19 vaccine series completed Surgical History History of colonoscopy History of umbilical hernia repair History of laparoscopic adjustable gastric banding S/P trigger finger release History of back surgery History of ear surgery Family History (Updated 12/02/24 @ 11:13 by Renate Christianson PA-C) Paternal Grandfather Myocardial infarct Paternal Uncle Prostate cancer Alcohol abuse Paternal Aunt Skin cancer Maternal Aunt Breast cancer Mother Lung cancer Social History (Updated 12/02/24 @ 11:12 by Renate Christianson PA-C) Housing: House Are you a primary home health care case manager to a significant other at home: No Do you presently have visiting nurse or other home services: No Alcohol intake: former Comment: UNSTEADY GAIT Patient Tobacco Use Status: Current everyday Tobacco user Tobacco use type: Cigarette Cigarette Packs Per Day: 1 Cigarettes Per Day: 20.0 Years Smoked: (onset 15yo, 1ppd x 39yrs, 35+PYH) e-Cigarette/Vaping Use: Never Used Second Hand Smoke Exposure: Yes service: No Current occupational status: employed 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 1. Little interest or pleasure in doing things: not at all 2. Feeling down, depressed, or hopeless: not at all 3. Trouble falling or staying asleep, or sleeping too much: not at all 4. Feeling tired or having little energy: not at all 5. Poor appetite or overeating: not at all 6. Feeling bad about yourself - or that you are a failure or have let yourself or your family down: not at all 7. Trouble concentrating on things, such as reading the newspaper or watching television: not at all 8. Moving or speaking so slowly that other people could have noticed. Or the opposite - being so fidgety or restless that you have been moving around a lot more than usual: not at all 9. Thoughts that you would be better off or of hurting yourself in some way: not at all Total score: 0 Depression Screening Interpretation: Positive Depression Screening Follow-up: Existing condition and In treatment Depression Screening Done: Yes 09152 - PHQ-9 Billing: Yes Source: Developed by Drs. Thomas Santacruz, Barbara Hernandez, Guille Zarate and colleagues, with an educational jori from [email or web address]. Thrive Questionnaire Date Thrive assessed: 12/12/24 I am a: Patient What is your living situation today?: I have a steady place to live Within the past 12 months, did the food you bought not last and you didn't have the money to get more?: Never true Within the past 12 months, did you worry whether your food would run out before you got money to buy more?: Never true Do you have trouble paying for medicines?: No Do you have trouble getting transportation to medical appointments?: No Do you have trouble paying your heating and electricity bill?: No Do you have trouble taking care of your child, family member or friend?: No Do you have trouble with day-to-day activities such as bathing, preparing meals, shopping, managing finances, etc.?: No Are you currently unemployed and looking for a job?: No Are you interested in more education?: No Please select the resources that you would like help with: Daily support Currently or been in a relationship where the following occur: No concerns reported THRIVE Score: 0 AUDIT C Alcohol Use Questionnaire (AUDIT-C) 1. How often do you have a drink containing alcohol?: Monthly or less 2. How many drinks containing alcohol do you have on a typical day when you are drinking?: 1 or 2 3. How often do you have six or more drinks on one occasion?: Never Total Score: 1 ARASH-7 AMB Questionnaire ARASH-7 Date ARASH - 7 assessed: 12/12/24 Feeling nervous, anxious, or on edge: 0 = Not at all Not being able to stop or control worryin = Not at all Worrying too much about different things: 0 = Not at all Trouble relaxin = Not at all Being so restless that it is hard to sit still: 0 = Not at all Becoming easily annoyed or irritable: 0 = Not at all Feeling afraid as if something awful might happen: 0 = Not at all Total ARASH-7 score (0-4 normal; 5-9 mild; 10-14 moderate; 15-21 severe): 0 Source: Developed by Drs. Thomas Santacruz, Barbara Hernandez, Guille Zarate and colleagues, with an educational jori from [email or web address]. ARASH-7 Assessment Billing ARASH-7 Assessment Tool: ARASH-7 Assessment 45637 Physical exam (Primary Care) Vital Signs: Last Vital Signs Temp 96.9 F 12/12/24 17:04 Pulse 86 12/12/24 17:04 BP 132/74 12/12/24 17:04 Pulse Ox 98 12/12/24 17:04 Oxygen Delivery Method Room Air 12/12/24 17:04 BMI result Body Mass Index 36.8 Tobacco/Smoking Status: Tobacco use Status Tobacco use date assessed 09/20/24 12/12/24 17:05 Patient Tobacco Use Status Current everyday Tobacco 12/12/24 17:05 Tobacco use type Cigarette 12/12/24 17:05 e-Cigarette/Vaping Use Never Used 12/12/24 17:05 PHQ-9: PHQ-9 Score PHQ-9: Total score 0 12/12/24 17:08 Depression Screening Interpretation: Positive Depression Screening Follow-up: Existing condition and In treatment Thrive Assessment: Date of Thrive Assessment Date Thrive assessed 12/12/24 12/12/24 17:05 Currently or been in a relationship where the following occur: No concerns reported Const General: alert; No acute distress Eyes Conjunctivae: conjunctivae normal Resp Auscultation: clear to auscultation bilaterally Cardio Rate: regular rate Rhythm: regular rhythm GI Inspection: Yes normal to inspection Extrem General: Yes normal to inspection and No edema Coding Level of Care Code Est Pt Level 4 (67684) Complex EM visit Add On G2211 Diagnoses Nicotine dependence, cigarettes, uncomplicated F17.210 Obesity E66.9 Type 2 diabetes mellitus with hyperglycemia, without long-term current use of insulin E11.65 Diabetes mellitus nursing home insulin use: without nursing home use Hx of laparoscopic gastric banding Z98.84 Primary hypertension I10 Hypertension type: primary hypertension Hypercholesterolemia E78.00 Sinus congestion R09.81 Additional Codes ARASH-7 Assessment Billing - ARASH-7 Assessment Tool: ARASH-7 Assessment 72046 ([id number]) PHQ-9 - 21117 - PHQ-9 Billing: Yes ([id number]) Assessment & Plan Assessment & Plan (1) Nicotine dependence, cigarettes, uncomplicated: Comment: (onset 15yo, 1ppd x 39yrs, 35+PYH) lung cancer screening program November 2024 Code(s): F17.210 - Nicotine dependence, cigarettes, uncomplicated Category: Medical Plan: Patient is strongly advised to stop smoking (2) Obesity: Code(s): E66.9 - Obesity, unspecified Category: Medical Plan: Diet and exercise (3) Type 2 diabetes mellitus with hyperglycemia: Onset Date: ~1997 Comment: dx age 28-was on metformin age [age]-scxjwst normalized s/p childbirth age 47-no longer on Rx-A1C 5.1 since 2017 Code(s): E11.65 - Type 2 diabetes mellitus with hyperglycemia Category: Medical Qualifiers: Diabetes mellitus nursing home insulin use: without nursing home use Qualified Code(s): E11.65 - Type 2 diabetes mellitus with hyperglycemia Plan: Decrease the amount of carbohydrate intake, pasta, bread, rice and potatoes are all sugar and that is aside from all the sweet stuff, remember that fruits are good but they are Sweet also. Hemoglobin A1c goal of less than 6.5. Tirzepatide prescription sent in metformin 500 mg twice a day (4) Hx of laparoscopic gastric banding: Comment: 2007- Code(s): Z98.84 - Bariatric surgery status Category: Surgical Plan: Continue to follow-up with bariatric surgeon (5) Hypertension: Code(s): I10 - Essential (primary) hypertension Category: Medical Qualifiers: Hypertension type: primary hypertension Qualified Code(s): I10 - Essential (primary) hypertension Plan: Continue with blood pressure medication. Decrease salt intake and exercise on losartan 100 mg once a day (6) Hypercholesterolemia: Code(s): E78.00 - Pure hypercholesterolemia, unspecified Category: Medical Plan: Avoid fried foods, chicken skin, eggs, butter margarine, pastries and meat. Be it pork or beef they have a lot of cholesterol LDL goal of less than 100 and triglyceride of less than 150 patient is not on statins (7) Sinus congestion: Code(s): R09.81 - Nasal congestion Category: Medical Plan History of Present Illness The patient is a 54-year-old female presenting with sinus issues and management of multiple chronic conditions. She notes worsening sinus problems after menopause, exacerbated by pressure despite the use of daily Flonase. There is a background of recurrent sinus infections, with four antibiotics courses taken recently and a diagnosis of acute otitis media in September. Previously managed sinus issues were relatively minor until hormonal changes post-menopause. She has recurrent major depressive disorder and generalized anxiety disorder treated with sertraline. The patient is obese but has experienced a 10-pound weight loss since starting terzepatide for her diabetes, alongside metformin and lifestyle efforts. The patient's last blood work in April 2024 revealed elevated LDL levels; she aims for a healthier cholesterol profile without currently using statins. Recent screenings include a mammogram in December 2023 and a colonoscopy in 2022, with continued lung cancer vigilance due to her history of smoking. The patient routinely self-monitors her blood sugar, successfully achieving her target hemoglobin A1c under 6.5%, currently at 5.8%. Elevated cardiovascular risk due to high LDL prompted recommendations to improve her lipid profile, and a smoker cessation program is advised due to the lung changes noted on screening. Health Maintenance - Most recent mammogram performed December 2023 - Colonoscopy last conducted in 2022, repeat advised by 2025 - Lung cancer screening completed November 2024; continued smoking cessation advised - Routine blood work in April 2024 showed normal electrolytes, elevated LDL c holesterol 116 mg/dL - Current hemoglobin A1c managed below target of 6.5%, latest value 5.8% - Blood pressure monitored with losartan 100 mg daily; target not specifically reported but implied satisfactory - Weight management emphasizes diet, exercise, and terzepatide injections in conjunction with metformin for diabetes control - Recommendations for reducing LDL cholesterol below 100 mg/dL and triglycerides under 150 mg/dL Social History - Smoker; advised to quit - Dietary and exercise regimen in place to manage obesity and diabetes - Recent weight loss of 10 pounds noticed - Uses daily nasal spray (Flonase) for sinus management - Lactose intolerant; avoids yogurt Review of Systems - Ears: Reports severe ear pressure. - Nose: Reports chronic sinus issues exacerbated post-menopause. - Genitourinary: Denies pregnancies. - Respiratory: Denies current issues, uses albuterol infrequently. - Musculoskeletal: Denies current problems with dexamethasone effect in previous experience. Physical Exam Results - Labs: Blood work in April 2024 with normal electrolytes, and elevated LDL 116 mg/dL. - Imaging: Lung cancer screening CAT scan on December 02, 2024, showed mild tree-in-bud appearance in the left lung base; no nodules. - Diabetes: Hemoglobin A1c at 5.8%. Plan The patient's sinus issues will be evaluated with an ordered sinus x-ray. Levaquin is initiated for potential infection management while consideration of lactose intolerance is noted. Diabetes management with metformin and terzepatide has shown positive results; the patient will continue with weight management strategies. Address hypercholesterolemia through lifestyle modifications aiming for targeted lipid levels. Emphasize pulmonary health with smoking cessation efforts due to recent scan findings. Continuous monitoring of hypertension, with losartan as therapy, and regular follow-ups for chronic disease management and prevention strategies are advised. Patient was informed and verbally consented to the use of an ambient scribe for clinic note documentation during this visit. Discussion Notes I discussed the current sinus issues with the patient, recommending a sinus x- ray to assess obstructed sinus passages further. Due to past ineffective antibiotic treatments, I prescribed Levaquin for acute management. For chronic care, we reviewed her diabetes management, noting her successful weight loss and A1c levels with current treatment, and agreed to continue terzepatide. For hypercholesterolemia, lifestyle changes were emphasized as crucial for achieving target lipid levels. I reiterated the importance of smoking cessation as prioritized in her pulmonary assessment. The patient's last mammogram was within the recommended timeframe and her colonoscopy is scheduled as per guidelines. I advised careful follow-up on each aspect, focusing on both acute and chronic conditions while maintaining preventive health measures. Patient Instructions - Obtain sinus x-rays as discussed to evaluate blockage. - Complete prescribed course of Levaquin, being aware of symptoms requiring medical attention. - Maintain diabetes management with metformin and terzepatide; continue weight loss efforts. - Focus on lifestyle changes to lower cholesterol levels and quit smoking. - Ensure follow-up for screenings as scheduled. - Seek medical care promptly for any worsening or new symptoms. Orders: Orders XR sinus min 3V Today R09.81 - Nasal congestion Referrals Ear/Nose/Throat Referral R09.81 - Nasal congestion Medications: New doxycycline hyclate 100 mg PO BID 7 days 14 caps 0RF R09.81 - Nasal congestion
[2024-12-12 17:04] VITALS: BP 132/74; PULSE 86; TEMP 36.1; O2SAT 98; BMI 36.8
== END 2024-12-12 17:49 | disposition home or self-care (01) ==
LOC: HO.HMCH 16:51
PROVIDERS: PCP Internal Medicine; Visit Provider Internal Medicine
DX: E11.65 Type 2 diabetes mellitus with hyperglycemia (principal); F17.210 Nicotine dependence, cigarettes, uncomplicated; Z68.36 Body mass index [BMI] 36.0-36.9, adult; E66.9 Obesity, unspecified; Z98.84 Bariatric surgery status; I10 Essential (primary) hypertension; E78.00 Pure hypercholesterolemia, unspecified; R09.81 Nasal congestion

== ENCOUNTER → 2024-12-12 16:50 | Outpatient (BNVA) | payer BC, SELFPAY | PROVIDERS: PCP Internal Medicine; Visit Provider Internal Medicine | DX: E11.65 Type 2 diabetes mellitus with hyperglycemia (principal); E66.9 Obesity, unspecified; Z68.36 Body mass index [BMI] 36.0-36.9, adult; I10 Essential (primary) hypertension; E78.00 Pure hypercholesterolemia, unspecified; R09.81 Nasal congestion; F17.210 Nicotine dependence, cigarettes, uncomplicated; Z79.899 Other long term (current) drug therapy; Z98.84 Bariatric surgery status | CPT/HCPCS: 96127 ==

== ENCOUNTER 2025-01-11 15:50 | Outpatient (REF) | payer BC, SELFPAY ==
--- NOTE | 2025-01-11 15:54 | PFT_ITS ---
Spirometry [] Lung Volumes [] Diffusion Capacity [] Methacholine Challenge [] Flow Volume Loops [] MVV [] MIP/MEP(Max inspiratory pressure/Max expiratory pressure) [] 6 Minute Walk Test [] ABG [] Interpretation [] MTDD
[2025-01-11 16:36] VITALS: PULSE 81; O2SAT 97
== END 2025-01-11 15:51 | disposition home or self-care (01) ==
LOC: HO.RESP 15:50
PROVIDERS: PCP Internal Medicine; Visit Provider Internal Medicine
DX: Z72.0 Tobacco use (principal)
CPT/HCPCS: 94010; 94640; 94727; 94729

== ENCOUNTER → 2025-01-11 15:54 | Outpatient (BNV) | payer BC, SELFPAY | PROVIDERS: PCP Internal Medicine; Visit Provider Internal Medicine Pulmonary Disease | DX: R06.09 Other forms of dyspnea (principal); F17.210 Nicotine dependence, cigarettes, uncomplicated | CPT/HCPCS: 94060; 94727; 94729 ==

== ENCOUNTER 2025-05-02 07:40 | Outpatient (REF) | payer BC, SELFPAY ==
--- NOTE | ~2025-05-02 | XR_ITS ---
CLINICAL HISTORY: R09.81 - Nasal congestion 5 view sinuses Comparison: None provided Findings: Bones are intact. No sinus fluid. There is a polyp or retention cyst in the left maxillary sinus. Mastoids are clear. No radiopaque foreign body. IMPRESSION: 1. Polyp or retention cyst in the left maxillary sinus. This document has been electronically signed by: Jas Mon MD on 05/03/2025 12:54:09
[2025-05-02 07:59] LABS: MANUAL DIFF FLAG NO
[2025-05-02 08:31] LABS: Hematocrit 43.9 % (37.0-47.0); Hemoglobin 14.2 g/dl (12.0-16.0); Imm Gran Abs Auto 0.03 X10*3/uL (0.00-0.03); Imm Gran Pct Auto 0.5 % (0.0-0.4); Lymphocytes Absolute Auto 2.0 X10*3/uL (1.2-4.9); Mean Corpuscular HGB Conc 32.3 g/dl (31.0-35.0); Mean Corpuscular Hemoglobin 28.5 pg (27.0-33.0); Mean Corpuscular Volume 88.0 fL (80.0-98.0); NRBC Abs Auto 0.000 X10*3/uL (0.0-0.012); NRBC Pct Auto 0.0 /100WBC (0.0-0.2); Platelet Count 229 X10*3/uL (160-400); Red Blood Count 4.99 X10*6/uL (4.20-5.50); White Blood Count 6.1 X10*3/uL (4.8-10.8)
[2025-05-02 09:35] LABS: Appearance Urine Clear; Glucose Urine UA Negative (Negative); PH 5.5 (5.0-9.0); Specific Gravity - Urine 1.025 (1.005-1.025); UMIC TRIGGER UACC YES
[2025-05-02 09:39] LABS: Alanine Aminotransferase 17 U/L (0-31); Albumin Level 4.5 g/dL (3.5-5.0); Alkaline Phosphatase 68 U/L (39-117); Anion Gap 15 (12-20); Aspartate Amino Transferase 23 U/L (5-31); Blood Urea Nitrogen 12 mg/dL (9-16); Calcium 9.8 mg/dL (8.4-10.2); Carbon Dioxide 26 mmol/L (22-29); Chloride 106 mmol/L (96-108); Cholesterol 213 mg/dL (<200); Estimated Glomerular Filt Rate > 60; HDL Cholesterol 36 mg/dL (>40); Potassium 5.2 mmol/L (3.3-5.1); Sodium 142 mmol/L (135-145); Total Protein 7.2 g/dL (6.5-8.0); Triglycerides 167 mg/dL (<150)
[2025-05-02 09:51] LABS: UACC Culture Trigger YES
[2025-05-02 09:56] LABS: Free T4 (Free Thyroxine) 1.13 ng/dL (0.71-1.85); Thyroid Stimulating Hormone 1.21 uIU/mL (0.32-4.0)
[2025-05-02 10:54] LABS: Microalbum/Creatinine Ratio Ur 6.2 ug/mg cr (<30)
[2025-05-02 11:09] LABS: Folate 5.0 ng/mL (> or = 4.0); Vitamin B12 1571 pg/mL (200-900)
== END 2025-05-02 07:41 | disposition home or self-care (01) ==
LOC: HO.LAB 07:40
PROVIDERS: PCP Internal Medicine; Visit Provider Internal Medicine
DX: E11.65 Type 2 diabetes mellitus with hyperglycemia (principal); R09.81 Nasal congestion; E78.00 Pure hypercholesterolemia, unspecified
CPT/HCPCS: 36415; 70220; 80053; 80061; 81001; 81003; 82043; 82570; 82607; 82746; 84439; 84443; 85025; 87086; 87088; 87186

== ENCOUNTER → 2025-05-02 08:02 | Outpatient (BNV) | payer BC, SELFPAY | PROVIDERS: PCP Internal Medicine; Visit Provider Radiology Diagnostic Radiology | DX: J34.1 Cyst and mucocele of nose and nasal sinus (principal) | CPT/HCPCS: 70220 ==

== ENCOUNTER 2025-05-03 12:50 | Outpatient (AMB) | payer BC, SELFPAY ==
--- NOTE | 2025-05-03 13:06 | MHC.PC.OV ---
Vital Signs 05/03/25 13:09 Height 5 ft 5 in Weight 205 lb 2 oz BMI 34.1 BP 122/62 Blood Pressure Location Lt brachial Position Sitting Pulse 74 Pulse Source Pulse Oximeter Temp 97.1 F Temp Source Temporal Artery Scan Pulse Oximetry (%) 98 Oxygen Delivery Method Room Air Intake Visit Reasons: DM RE Intake Note: Patient is here to follow up on DM. Child Care Sitter Required: No Associate Professor Of Economics: Not Required per policy Accompanied by: Self / Same As Patient Allergies lisinopril Allergy (Intermediate, Verified 05/03/25 13:08) Rash paroxetine (Paxil) Adverse Reaction (Intermediate, Verified 05/03/25 13:08) weight gain Tobacco use date assessed: 05/03/25 Dental Screening Dental Screen Date: 05/03/25 Did you have a dental visit in the last 12 months?: Yes Did you have a dental problem in the last 6 months where you did not have access to dental care?: No Was dental information given to patient?: Patient has dentist [facility] Medical History (Updated 05/03/25 @ 13:14 by Augustin Steward MD) Hypertension Hypercholesterolemia History of diabetes mellitus, type II Polycystic ovarian syndrome Bronchitis Nicotine dependence, cigarettes, uncomplicated Major depressive disorder, recurrent, moderate Generalized anxiety disorder Migraine Hemorrhoid Constipation Deafness in right ear Tubulovillous adenoma (~2021) Renal stones Vertigo Sciatica, right side DDD (degenerative disc disease), lumbar Post-operative nausea and vomiting Obesity COVID-19 vaccine series completed Surgical History History of colonoscopy History of umbilical hernia repair History of laparoscopic adjustable gastric banding S/P trigger finger release History of back surgery History of ear surgery Family History Paternal Grandfather Myocardial infarct Paternal Uncle Prostate cancer Alcohol abuse Paternal Aunt Skin cancer Maternal Aunt Breast cancer Mother Lung cancer Social History Housing: House Are you a primary special needs caregiver to a significant other at home: No Do you presently have visiting nurse or other home services: No Alcohol intake: former Comment: UNSTEADY GAIT Patient Tobacco Use Status: Current everyday Tobacco user Tobacco use type: Cigarette Cigarette Packs Per Day: 1 Cigarettes Per Day: 20.0 Years Smoked: (onset 15yo, 1ppd x 39yrs, 35+PYH) e-Cigarette/Vaping Use: Never Used Second Hand Smoke Exposure: Yes service: No Current occupational status: employed 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 1. Little interest or pleasure in doing things: several days 2. Feeling down, depressed, or hopeless: several days 3. Trouble falling or staying asleep, or sleeping too much: not at all 4. Feeling tired or having little energy: several days 5. Poor appetite or overeating: not at all 6. Feeling bad about yourself - or that you are a failure or have let yourself or your family down: not at all 7. Trouble concentrating on things, such as reading the newspaper or watching television: not at all 8. Moving or speaking so slowly that other people could have noticed. Or the opposite - being so fidgety or restless that you have been moving around a lot more than usual: not at all 9. Thoughts that you would be better off or of hurting yourself in some way: not at all Total score: 3 Depression Screening Interpretation: Positive Depression Screening Done: Yes Source: Developed by Drs. Thomas Santacruz, Barbara Hernandez, Guille Zarate and colleagues, with an educational jori from [employer]. Thrive Questionnaire Date Thrive assessed: 03/07/25 I am a: Patient What is your living situation today?: I have a steady place to live Within the past 12 months, did the food you bought not last and you didn't have the money to get more?: Never true Within the past 12 months, did you worry whether your food would run out before you got money to buy more?: Never true Do you have trouble paying for medicines?: No Do you have trouble getting transportation to medical appointments?: No Do you have trouble paying your heating and electricity bill?: No Do you have trouble taking care of your child, family member or friend?: Yes Do you have trouble with day-to-day activities such as bathing, preparing meals, shopping, managing finances, etc.?: No Are you currently unemployed and looking for a job?: No Are you interested in more education?: No Please select the resources that you would like help with: None Currently or been in a relationship where the following occur: No concerns reported THRIVE Score: 0 ARASH-7 AMB Questionnaire ARASH-7 Date ARASH - 7 assessed: 12/12/24 Source: Developed by Drs. Thomas Santacruz, Barbara Hernandez, Guille Zarate and colleagues, with an educational jori from [employer]. Physical exam (Primary Care) Vital Signs: Last Vital Signs Temp 97.1 F 05/03/25 13:09 Pulse 74 05/03/25 13:09 BP 122/62 05/03/25 13:09 Pulse Ox 98 05/03/25 13:09 Oxygen Delivery Method Room Air 05/03/25 13:09 BMI result Body Mass Index 34.1 Tobacco/Smoking Status: Tobacco use Status Tobacco use date assessed 05/03/25 05/03/25 13:16 Patient Tobacco Use Status Current everyday Tobacco 05/03/25 13:16 Tobacco use type Cigarette 05/03/25 13:16 e-Cigarette/Vaping Use Never Used 05/03/25 13:16 PHQ-9: PHQ-9 Score PHQ-9: Total score 3 05/03/25 13:20 Depression Screening Interpretation: Positive Thrive Assessment: Date of Thrive Assessment Date Thrive assessed 03/07/25 05/03/25 13:16 Currently or been in a relationship where the following occur: No concerns reported Const General: alert; No acute distress Eyes Conjunctivae: conjunctivae normal Resp Auscultation: clear to auscultation bilaterally Cardio Rate: regular rate Rhythm: regular rhythm GI Inspection: Yes normal to inspection Extrem General: Yes normal to inspection and No edema Results AMB Hemoglobin A1c AMB Hemoglobin A1c 5.9 % Last Edit by MARISELA King on 05/03/25 13:20 Results Reviewed Results Reviewed: Laboratory Last Values Hgb A1c (Clinic) 5.9 % (4.0-6.0) 05/03/25 13:04 Coding Level of Care Code Est Pt Level 4 (59953) Complex EM visit Add On G2211 Diagnoses History of diabetes mellitus, type II Z86.39 Primary hypertension I10 Hypertension type: primary hypertension Hypercholesterolemia E78.00 Major depressive disorder, recurrent, moderate F33.1 Obesity E66.9 Nicotine dependence, cigarettes, uncomplicated F17.210 COPD (chronic obstructive pulmonary disease) J44.9 Assessment & Plan Assessment & Plan (1) History of diabetes mellitus, type II: Comment: (dx age 28-was on metformin age [id number]-pzuxqah normalized s/p childbirth age 47-no longer on Rx-A1C 5.1 since 2017) Code(s): Z86.39 - Personal history of other endocrine, nutritional and metabolic disease Category: Medical Plan: Decrease the amount of carbohydrate intake, pasta, bread, rice and potatoes are all sugar and that is aside from all the sweet stuff, remember that fruits are good but they are Sweet also. Hemoglobin A1c goal of less than 6.5. Patient on metformin 500 mg twice a day placed on tirzepatide 7.5 mg once a week (2) Hypertension: Code(s): I10 - Essential (primary) hypertension Category: Medical Qualifiers: Hypertension type: primary hypertension Qualified Code(s): I10 - Essential (primary) hypertension Plan: Continue with blood pressure medication. Decrease salt intake and exercise patient takes losartan 100 mg once a day (3) Hypercholesterolemia: Code(s): E78.00 - Pure hypercholesterolemia, unspecified Category: Medical Plan: Avoid fried foods, chicken skin, eggs, butter margarine, pastries and meat. Be it pork or beef they have a lot of cholesterol LDL goal of less than 100 and triglyceride of less than 150. Patient not on cholesterol medication (4) Major depressive disorder, recurrent, moderate: Comment: Stephy Bernard Code(s): F33.1 - Major depressive disorder, recurrent, moderate Category: Medical Plan: Continue with counseling and therapy on sertraline (5) Obesity: Code(s): E66.9 - Obesity, unspecified Category: Medical Plan: Diet and exercise (6) Nicotine dependence, cigarettes, uncomplicated: Comment: (onset 15yo, 1ppd x 39yrs, 35+PYH) lung cancer screening program November 2024 Code(s): F17.210 - Nicotine dependence, cigarettes, uncomplicated Category: Medical Plan: Patient is strongly advised to stop smoking. Has enrollment in lung cancer screening program (7) COPD (chronic obstructive pulmonary disease): Code(s): J44.9 - Chronic obstructive pulmonary disease, unspecified Category: Medical Plan: Patient is strongly advised to stop smoking! Discussed about albuterol inhaler and controllers. Plan History of Present Illness The patient is a 55-year-old female presenting for management of multiple chronic conditions including diabetes mellitus, hypertension, and hypercholesterolemia. The patient has a history of diabetes mellitus and is currently on metformin 500 mg twice a day and Tirzepatide 7.5 mg once a week, with a goal to maintain hemoglobin A1c below 6.5%. She has experienced weight loss, attributed to the medication regimen, and her blood sugar levels have been normal, although her hemoglobin A1c is pending. The patient has hypertension managed with losartan 100 mg daily. Her blood pressure control is part of her ongoing management plan. Hypercholesterolemia is a concern, with an LDL level of 144 mg/dL, and the patient is not currently on cholesterol medication. The goal is to reduce LDL to below 100 mg/dL, and a new prescription for cholesterol management is planned. The patient has a history of sinus disorder with a retention cyst in the left maxillary sinus, confirmed by sinus x-rays in April 2025. She has been advised to use nasal sprays like Flonase to manage symptoms until her ENT appointment in May. The patient has lumbar degenerative disc disease and a history of tubular adenoma, with the last colonoscopy performed in 2022, and a follow-up advised in 3 to 4 years. She has a history of depression, managed with sertraline, and continues with counseling and therapy. The patient is also a smoker and has been strongly advised to quit smoking, with enrollment in a lung cancer screening program. The patient underwent a pulmonary function test in December 2024, showing mild obstructive ventilatory defect, consistent with COPD. She has been advised on the use of inhalers and the importance of smoking cessation to manage her respiratory condition. 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, impacting personal health management - Recent dietary changes to include more fruits and vegetables Review of Systems - Respiratory: Reports mild obstructive ventilatory defect, consistent with COPD - Endocrine: Reports normal blood sugar levels, hemoglobin A1c pending Physical Exam - Cardiovascular: Heart auscultation performed - Respiratory: Lung function test indicating mild COPD Results - Labs: Normal blood count, normal electrolytes, normal kidney function, high cholesterol with LDL of 144 mg/dL, hemoglobin A1c pending - Imaging: Sinus x-rays showing retention cyst in the left maxillary sinus - Pulmonary function test: Mild obstructive ventilatory defect, no bronchotilia response Plan The management plan for diabetes mellitus includes maintaining the hemoglobin A1c below 6.5% with the current regimen of metformin and Tirzepatide. The patient has been advised to monitor her weight and report any plateauing to adjust the medication dosage accordingly. For hypertension, the patient will continue on losartan 100 mg daily, with a 90-day prescription to improve adherence. Hypercholesterolemia management involves initiating cholesterol medication with a goal to reduce LDL levels below 100 mg/dL. The patient will undergo a cholesterol test in three months to assess the effectiveness of the treatment. The patient is advised to use nasal sprays like Flonase for the sinus disorder until her ENT appointment. Smoking cessation is strongly recommended to improve respiratory health, and the patient is enrolled in a lung cancer screening program. The patient will continue with sertraline for depression and is encouraged to maintain counseling and therapy sessions. Lifestyle modifications, including dietary changes and increased physical activity, are advised to support overall health management. Patient was informed and verbally consented to the use of an ambient scribe for clinic note documentation during this visit. Discussion Notes During the visit, I discussed the importance of maintaining hemoglobin A1c levels below 6.5% and the role of metformin and Tirzepatide in achieving this goal. We talked about the need to monitor weight and adjust medication if necessary. I emphasized the importance of controlling blood pressure with losartan and the need for cholesterol management to reduce LDL levels. We reviewed the use of nasal sprays for sinus issues and the critical need for smoking cessation, especially given the patient's enrollment in a lung cancer screening program. I also encouraged continued therapy for depression and highlighted the benefits of lifestyle changes, including diet and exercise, to support overall health. Patient Instructions - Continue taking metformin and Tirzepatide as prescribed. - Monitor weight and report any plateauing to adjust medication dosage. - Take losartan 100 mg daily, with a 90-day prescription. - Start cholesterol medication and recheck levels in three months. - Use nasal sprays like Flonase for sinus issues until ENT appointment. - Strongly advised to quit smoking and continue with lung cancer screening. - Continue sertraline and counseling for depression. - Implement dietary changes and increase physical activity. Orders: Orders AMB Hemoglobin A1c Today Z86.39 - Personal history of other endocrine, nutritional and metabolic disease Lipid Panel 3 Months E78.00 - Pure hypercholesterolemia, unspecified Comprehensive Met. Panel 3 Months E78.00 - Pure hypercholesterolemia, unspecified Hemoglobin A1c 3 Months E78.00 - Pure hypercholesterolemia, unspecified Medications: New atorvastatin (Lipitor) 20 mg PO DAILY 90 tabs 1RF E78.00 - Pure hypercholesterolemia, unspecified Changed From tirzepatide 7.5 mg (0.5 mL) subcut QWEEK 4 weeks 2 mL 2RF E11.65 - Type 2 diabetes mellitus with hyperglycemia To tirzepatide 10 mg (0.5 mL) subcut QWEEK 2 mL 2RF 4 weeks E11.65 - Type 2 diabetes mellitus with hyperglycemia Refilled losartan 100 mg PO DAILY 90 tabs 3RF I10 - Essential (primary) hypertension
[2025-05-03 13:09] VITALS: BP 122/62; PULSE 74; TEMP 36.2; O2SAT 98; BMI 34.1
== END 2025-05-03 13:30 | disposition home or self-care (01) ==
LOC: HO.HMCH 12:51
PROVIDERS: PCP Internal Medicine; Visit Provider Internal Medicine
DX: J44.9 Chronic obstructive pulmonary disease, unspecified (principal); F33.1 Major depressive disorder, recurrent, moderate; E66.9 Obesity, unspecified; Z68.34 Body mass index [BMI] 34.0-34.9, adult; I10 Essential (primary) hypertension; Z86.39 Personal history of other endocrine, nutritional and metabolic disease; E78.00 Pure hypercholesterolemia, unspecified; F17.210 Nicotine dependence, cigarettes, uncomplicated

== ENCOUNTER → 2025-05-03 12:50 | Outpatient (BNVA) | payer BC, SELFPAY | PROVIDERS: PCP Internal Medicine; Visit Provider Internal Medicine | DX: I10 Essential (primary) hypertension (principal); E78.00 Pure hypercholesterolemia, unspecified; F33.1 Major depressive disorder, recurrent, moderate; E66.9 Obesity, unspecified; J44.9 Chronic obstructive pulmonary disease, unspecified; F17.210 Nicotine dependence, cigarettes, uncomplicated; E11.65 Type 2 diabetes mellitus with hyperglycemia; Z86.39 Personal history of other endocrine, nutritional and metabolic disease; Z79.84 Long term (current) use of oral hypoglycemic drugs; Z68.34 Body mass index [BMI] 34.0-34.9, adult; Z79.899 Other long term (current) drug therapy | CPT/HCPCS: 83036; 96127 ==

== ENCOUNTER 2025-05-26 11:09 | Outpatient (AMB) | payer BC, SELFPAY ==
[2025-05-26 11:19] VITALS: BP 102/58; PULSE 78; TEMP 36.8; O2SAT 97; BMI 34.3
--- NOTE | 2025-05-26 11:19 | AM.OFFWIN_ITS ---
Intake Vital Signs 05/26/25 11:19 Height 5 ft 5 in Weight 206 lb BMI 34.3 BP 102/58 L Blood Pressure Location Lt brachial Position Sitting Pulse 78 Pulse Source Pulse Oximeter Temp 98.2 F Temp Source Oral Pulse Oximetry (%) 97 Oxygen Delivery Method Room Air Intake Visit Reasons: EP-?uti Intake Note: pt presents for concern for Kidney stones, c/o RT flank pain x2 days- reports h/o kidney stones. recently on bactrim for UTI Patient Tobacco Use Status: Current everyday Tobacco user Allergies lisinopril Allergy (Intermediate, Verified 05/26/25 11:20) Rash paroxetine (Paxil) Adverse Reaction (Intermediate, Verified 05/26/25 11:20) weight gain Medication List - Last Reconciled 05/26/25 by Jesús García MD albuterol sulfate 90 mcg/actuation 2 puffs inhalation Q6H PRN atorvastatin (Lipitor) 20 mg PO DAILY blood sugar diagnostic (FreeStyle Lite Strips) As directed check the BS QD blood-glucose meter (FreeStyle Lite Meter kit) As directed fluticasone propionate 50 mcg/actuation (Flonase Allergy Relief) 2 sprays intranasal DAILY folic acid 1 mg PO DAILY 90 days lancets (FreeStyle Lancets) As directed check BS QD losartan 100 mg PO DAILY metformin 500 mg PO BIDWMEAL sertraline (Zoloft) 100 mg PO DAILY tirzepatide 10 mg (0.5 mL) subcut QWEEK 4 weeks tramadol 50 mg PO BID PRN 30 days Do you need a note to return to daycare/school/sports/work: No HPI EP-?uti HPI Details History of Present Illness The patient is a 55-year-old female presenting with right flank pain. Right Flank Pain: - The patient reports right kidney pain persisting for several days. - Initially experienced pain in both kid neys, now localized to the right side. - History of kidney stones. - Pain exacerbates with deep breathing a nd is described as constant. - Previous episodes resulted in kidney i nfections and/or urinary tract infections. - Recent urinalysis showed no current in fection. - Physical activity is hindered by the p ain. Medical History: - History of kidney stones. - Previous urinary tract infections. Medications: - Completed a course of Bactrim antibiot ics recently for a urinary tract infection. Social History: - Drinks a lot of water to manage kidney stone episodes. Diagnostic Results: - Prior abdominal ultrasound in January 08 revealed normal kidney findings with no hydronephrosis or stones. - CT scan identified a 1 mm nonobstructi ve stone in the right kidney. - Recent urine test showed no presence o f infection or blood. Problem List - Right Flank Pain - History of Kidney Stones - Recent Urinary Tract Infection Patient Instructions - Drink plenty of water. - Take Tylenol for pain management. - have repeat urinalysis if symptoms get worse, order for UA placed - your urine test today shows cleaned ur ine there is no blood or signs of infection Review of Systems - General: No fever no chills - Neurological: No headaches no dizziness - Ear nose throat: No sore throat no hearing difficulty no ear pain - Cardiovascular: No syncope, no chest pain, no palpitations - Gastrointestinal: No nausea vomiting or diarrhea - Endocrine: No polyuria polydipsia no heat intolerance - Genitourinary: No dysuria , no blood in urine Physical Exam General: No acute distress HEENT: No acute findings Neck: Supple Respiratory system: Able to talk in full sentences, no audible wheeze Back: Pain located left flank area no pain with percussion Gastrointestinal: No suprapubic pain Extremities: No new findings 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 awake oriented x3 motor sensory intact Skin: Normal turgor [facility] Medical History Hypertension Hypercholesterolemia History of diabetes mellitus, type II Polycystic ovarian syndrome Bronchitis Nicotine dependence, cigarettes, uncomplicated Major depressive disorder, recurrent, moderate Generalized anxiety disorder Migraine Hemorrhoid Constipation Deafness in right ear Tubulovillous adenoma (~2021) Renal stones Vertigo Sciatica, right side DDD (degenerative disc disease), lumbar Post-operative nausea and vomiting Obesity COVID-19 vaccine series completed Surgical History History of colonoscopy History of umbilical hernia repair History of laparoscopic adjustable gastric banding S/P trigger finger release History of back surgery History of ear surgery Family History Paternal Grandfather Myocardial infarct Paternal Uncle Prostate cancer Alcohol abuse Paternal Aunt Skin cancer Maternal Aunt Breast cancer Mother Lung cancer Social History Housing: House Are you a primary manager intensive care unit to a significant other at home: No Do you presently have visiting nurse or other home services: No Alcohol intake: former Comment: UNSTEADY GAIT Patient Tobacco Use Status: Current everyday Tobacco user Tobacco use type: Cigarette Cigarette Packs Per Day: 1 Cigarettes Per Day: 20.0 Years Smoked: (onset 15yo, 1ppd x 39yrs, 35+PYH) e-Cigarette/Vaping Use: Never Used Second Hand Smoke Exposure: Yes service: No Current occupational status: employed 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 Cognitive needs: No Hearing needs: No Vision needs: Yes Female Reproductive History Menstrual Age of Menarche: 11 Physical Exam Vital Signs: Last Vital Signs Temp 98.2 F 05/26/25 11:19 Pulse 78 05/26/25 11:19 BP 102/58 L 05/26/25 11:19 Pulse Ox 97 05/26/25 11:19 Oxygen Delivery Method Room Air 05/26/25 11:19 BMI result Body Mass Index 34.3 Results AMB Urinalysis, Automated UA Leukoctes 0 Conor/uL Last Edit by Sampson Scott CMA on 05/26/25 12:02 UA Nitrite Negative Last Edit by Sampson Scott CMA on 05/26/25 12:02 UA Urobilinogen 0.2 mg/dL Last Edit by Sampson Scott CMA on 05/26/25 12 :02 UA Protein 0 mg/dL Last Edit by Sampson Scott CMA on 05/26/25 12:02 UA pH 6.0 Last Edit by Sampson Scott CMA on 05/26/25 12:02 UA Blood 0 Aidan/uL Last Edit by Sampson Scott CMA on 05/26/25 12:02 UA Specific [place] 1.010 Last Edit by Sampson Scott CMA on 05/26/25 12:02 UA Ketone Negative Last Edit by Sampson Scott CMA on 05/26/25 12:02 UA Bilirubin 0 mg/dL Last Edit by Sampson Scott CMA on 05/26/25 12:02 UA Glucose 0 mg/dL Last Edit by Sampson Scott CMA on 05/26/25 12:02 Results Reviewed Results Reviewed: Laboratory Last Values Urine pH (Auto) 6.0 05/26/25 12:01 Specific [place] (Auto) 1.010 05/26/25 12:01 Urine Protein (Auto) 0 mg/dL 05/26/25 12:01 Glucose (UA)(Auto) 0 mg/dL 05/26/25 12:01 Urine Ketones (Auto) Negative 05/26/25 12:01 Urine Blood (Auto) 0 Aidan/uL 05/26/25 12:01 Urine Nitrite (Auto) Negative 05/26/25 12:01 Urine Bilirubin (Auto) 0 mg/dL 05/26/25 12:01 Urine Urobilinogen (Auto) 0.2 mg/dL 05/26/25 12:01 Leukocyte Esterase (Auto) 0 Conor/uL 05/26/25 12:01 Assessment & Plan Assessment & Plan (1) Recurrent UTI: Code(s): N39.0 - Urinary tract infection, site not specified (2) Left flank pain: Code(s): R10.9 - Unspecified abdominal pain Plan History of Present Illness The patient is a 55-year-old female presenting with right flank pain. Right Flank Pain: - The patient reports right kidney pain persisting for several days. - Initially experienced pain in both kidneys, now localized to the right side. - History of kidney stones. - Pain exacerbates with deep breathing and is described as constant. - Previous episodes resulted in kidney infections and/or urinary tract infections. - Recent urinalysis showed no current infection. - Physical activity is hindered by the pain. Medical History: - History of kidney stones. - Previous urinary tract infections. Medications: - Completed a course of Bactrim antibiotics recently for a urinary tract infection. Social History: - Drinks a lot of water to manage kidney stone episodes. Diagnostic Results: - Prior abdominal ultrasound in December 2022 revealed normal kidney findings with no hydronephrosis or stones. - CT scan identified a 1 mm nonobstructive stone in the right kidney. - Recent urine test showed no presence of infection or blood. Problem List - Right Flank Pain - History of Kidney Stones - Recent Urinary Tract Infection Patient Instructions - Drink plenty of water. - Take Tylenol for pain management. - have repeat urinalysis if symptoms get worse, order for UA placed - your urine test today shows cleaned urine there is no blood or signs of infection Orders: Orders UA CC w/rflx Micro + Cult Today N39.0 - Urinary tract infection, site not specified AMB Urinalysis Automated Today Z13.9 - Encounter for screening, unspecified Coding Level of Care Code Est Pt Level 3 (44104) Diagnoses Recurrent UTI N39.0 Left flank pain R10.9
== END 2025-05-26 13:24 | disposition home or self-care (01) ==
PROVIDERS: PCP Internal Medicine; Visit Provider Internal Medicine
DX: N39.0 Urinary tract infection, site not specified (principal); R10.9 Unspecified abdominal pain; Z13.9 Encounter for screening, unspecified

== ENCOUNTER 2025-05-26 11:09 | Outpatient (REF) | payer BC, SELFPAY ==
[2025-05-26 13:42] LABS: Appearance Urine Clear; Glucose Urine UA Negative (Negative); PH 6.5 (5.0-9.0); Specific Gravity - Urine 1.010 (1.005-1.025); UMIC TRIGGER UACC YES
== END 2025-05-26 11:10 | disposition home or self-care (01) ==
LOC: HO.LNP 11:09
PROVIDERS: Internal Medicine; PCP Internal Medicine; Visit Provider Physician Assistant
DX: N39.0 Urinary tract infection, site not specified (principal); R10.9 Unspecified abdominal pain
CPT/HCPCS: 81001; 81003

== ENCOUNTER 2025-08-11 16:21 | Outpatient (AMB) | payer BC, SELFPAY ==
--- NOTE | 2025-08-11 16:24 | MHC.PC.OV ---
Vital Signs 08/11/25 16:25 Height 5 ft 5 in Weight 199 lb 2 oz BMI 33.1 BP 126/68 Blood Pressure Location Lt brachial Position Sitting Pulse 78 Pulse Source Pulse Oximeter Temp 97.0 F Temp Source Temporal Artery Scan Pulse Oximetry (%) 97 Oxygen Delivery Method Room Air Intake Visit Reasons: Follow Up Allergies lisinopril Allergy (Intermediate, Verified 08/11/25 16:29) Rash paroxetine (Paxil) Adverse Reaction (Intermediate, Verified 08/11/25 16:29) weight gain Medication List - Last Reconciled 08/11/25 by Augustin Steward MD albuterol sulfate 90 mcg/actuation 2 puffs inhalation Q6H PRN atorvastatin (Lipitor) 20 mg PO DAILY blood sugar diagnostic (FreeStyle Lite Strips) As directed check the BS QD blood-glucose meter (FreeStyle Lite Meter kit) As directed fluticasone propionate 50 mcg/actuation (Flonase Allergy Relief) 2 sprays intranasal DAILY lancets (FreeStyle Lancets) As directed check BS QD losartan 100 mg PO DAILY metformin 500 mg PO BIDWMEAL sertraline (Zoloft) 100 mg PO DAILY tirzepatide 10 mg (0.5 mL) subcut QWEEK 4 weeks tramadol 50 mg PO BID PRN 30 days Tobacco use date assessed: 08/11/25 Dental Screening Dental Screen Date: 08/11/25 Did you have a dental visit in the last 12 months?: Yes Did you have a dental problem in the last 6 months where you did not have access to dental care?: No Was dental information given to patient?: Patient has dentist HPI HPI Comments History of Present Illness Details History of Present Illness The patient is a 55-year-old individual presenting for a follow-up visit, last seen in April 2025, for management of multiple chronic conditions including COPD. The patient has experienced a 60-pound weight loss since January 2024. Past medical history is significant for lumbar degenerative disc disease, generalized anxiety disorder, a history of tubulovillous adenoma with the last colonoscopy in 2022, hypertension, hypercholesterolemia, and diabetes mellitus. The patient is also a smoker with COPD. The patient's last blood work in April revealed a normal blood count, electrolytes, renal function, and liver function, with a hemoglobin A1c of 5.5%. However, the LDL cholesterol was high, with a total cholesterol of 213 and triglycerides of 167. A urine test showed no proteinuria. Thyroid function was normal. The patient had an urgent care visit on May 26 for a suspected UTI, but the urine test was negative. In terms of health maintenance, the patient's mammogram is due, with the last one recorded in December 2023. The patient is up to date with an eye exam from May 31, 2025, which showed no retinopathy. A low-dose CT for lung cancer screening was completed in November 2024. The patient saw an ENT specialist at [facility] for a nasal deformity and was found to be allergic to mold and every tree after two series of allergy testing. The patient has a history of four to five sinus infections over the last couple of years requiring antibiotics. The patient reports a mass on the left wrist, identified as a tendon cyst, which has grown larger and become more visible this year and is sometimes painful. Health Maintenance Prescriptions for metformin, losartan, sertraline, and atorvastatin were sent to the patient's new pharmacy, [facility] in [place], [place]. The patient will schedule a mammogram as it is currently due. The patient will arrange a follow-up appointment with an [facility]. Follow up with ENT for management of allergies is recommended. Advised to continue with diet and exercise for weight management. Social History - The patient is a smoker and was strongly advised to quit. - The patient has achieved a 60-pound weight loss and has a target weight of around 180 pounds. - Discussion included diet and exercise. - The patient recently moved to [place], [place]. Results - Labs (May 02): Normal CBC, normal electrolytes, good renal function, and normal liver function. - Hemoglobin A1c (May 02): 5.5%. - Lipid Panel (May 02): LDL was high, total cholesterol 213, triglycerides 167. - Thyroid function (May 02): Normal. - Urinalysis (April): No proteinuria. - Urinalysis (May 26, Urgent Care): Negative for UTI. - Imaging: Low-dose CT of the lung for cancer screening was performed in November 2024. - Mammogram: Last performed in December 2023. [facility] Medical History Hypertension Hypercholesterolemia History of diabetes mellitus, type II Polycystic ovarian syndrome Bronchitis Nicotine dependence, cigarettes, uncomplicated Major depressive disorder, recurrent, moderate Generalized anxiety disorder Migraine Hemorrhoid Constipation Deafness in right ear Tubulovillous adenoma (~2021) Renal stones Vertigo Sciatica, right side DDD (degenerative disc disease), lumbar Post-operative nausea and vomiting Obesity COVID-19 vaccine series completed Surgical History History of colonoscopy History of umbilical hernia repair History of laparoscopic adjustable gastric banding S/P trigger finger release History of back surgery History of ear surgery Family History Paternal Grandfather Myocardial infarct Paternal Uncle Prostate cancer Alcohol abuse Paternal Aunt Skin cancer Maternal Aunt Breast cancer Mother Lung cancer Social History Housing: House Are you a primary hemodialysis patient care specialist to a significant other at home: No Do you presently have visiting nurse or other home services: No Alcohol intake: former Comment: UNSTEADY GAIT Patient Tobacco Use Status: Current everyday Tobacco user Tobacco use type: Cigarette Cigarette Packs Per Day: 1 Cigarettes Per Day: 20.0 Years Smoked: (onset 15yo, 1ppd x 39yrs, 35+PYH) e-Cigarette/Vaping Use: Never Used Second Hand Smoke Exposure: Yes service: No Current occupational status: employed 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 1. Little interest or pleasure in doing things: several days 2. Feeling down, depressed, or hopeless: several days 3. Trouble falling or staying asleep, or sleeping too much: not at all 4. Feeling tired or having little energy: several days 5. Poor appetite or overeating: not at all 6. Feeling bad about yourself - or that you are a failure or have let yourself or your family down: not at all 7. Trouble concentrating on things, such as reading the newspaper or watching television: not at all 8. Moving or speaking so slowly that other people could have noticed. Or the opposite - being so fidgety or restless that you have been moving around a lot more than usual: not at all 9. Thoughts that you would be better off or of hurting yourself in some way: not at all Total score: 3 Depression Screening Interpretation: Positive Depression Screening Done: Yes Source: Developed by Drs. Thomas Santacruz, Barbara Hernandez, Guille Zarate and colleagues, with an educational jori from [employer]. Thrive Questionnaire Date Thrive assessed: 03/07/25 I am a: Patient What is your living situation today?: I have a steady place to live Within the past 12 months, did the food you bought not last and you didn't have the money to get more?: Never true Within the past 12 months, did you worry whether your food would run out before you got money to buy more?: Never true Do you have trouble paying for medicines?: No Do you have trouble getting transportation to medical appointments?: No Do you have trouble paying your heating and electricity bill?: No Do you have trouble taking care of your child, family member or friend?: Yes Do you have trouble with day-to-day activities such as bathing, preparing meals, shopping, managing finances, etc.?: No Are you currently unemployed and looking for a job?: No Are you interested in more education?: No Please select the resources that you would like help with: None Currently or been in a relationship where the following occur: No concerns reported THRIVE Score: 0 AUDIT C Alcohol Use Questionnaire (AUDIT-C) 1. How often do you have a drink containing alcohol?: Monthly or less 2. How many drinks containing alcohol do you have on a typical day when you are drinking?: 1 or 2 3. How often do you have six or more drinks on one occasion?: Never Total Score: 1 ARASH-7 AMB Questionnaire ARASH-7 Date ARASH - 7 assessed: 12/12/24 Feeling nervous, anxious, or on edge: 0 = Not at all Not being able to stop or control worryin = Not at all Worrying too much about different things: 0 = Not at all Trouble relaxin = Not at all Being so restless that it is hard to sit still: 0 = Not at all Becoming easily annoyed or irritable: 0 = Not at all Feeling afraid as if something awful might happen: 0 = Not at all Total ARASH-7 score (0-4 normal; 5-9 mild; 10-14 moderate; 15-21 severe): 0 Source: Developed by Drs. Thomas Santacruz, Barbara Hernandez, Guille Zarate and colleagues, with an educational jori from [employer]. Review of Systems Narrative Review of Systems - General: Reports significant weight loss of 60 pounds. - ENT: Reports four to five sinus infections in the last couple of years requiring antibiotics. - Musculoskeletal: Reports a growing and sometimes painful mass on the left wrist. - Genitourinary: Reports a recurrent cyst, needs to follow up with [facility]. Physical exam (Primary Care) Vital Signs: Last Vital Signs Temp 97.0 F 08/11/25 16:25 Pulse 78 08/11/25 16:25 BP 126/68 08/11/25 16:25 Pulse Ox 97 08/11/25 16:25 Oxygen Delivery Method Room Air 08/11/25 16:25 BMI result Body Mass Index 33.1 Tobacco/Smoking Status: Tobacco use Status Tobacco use date assessed 08/11/25 08/11/25 16:30 Patient Tobacco Use Status Current everyday Tobacco 08/11/25 16:25 Tobacco use type Cigarette 08/11/25 16:25 e-Cigarette/Vaping Use Never Used 08/11/25 16:25 PHQ-9: PHQ-9 Score PHQ-9: Total score 3 08/11/25 16:53 Depression Screening Interpretation: Positive Thrive Assessment: Date of Thrive Assessment Date Thrive assessed 03/07/25 08/11/25 16:25 Currently or been in a relationship where the following occur: No concerns reported Narrative Physical Exam - Left Wrist: Presence of a 3 cm, hard, rounded mass on the radial aspect, with no erythema. - Right Wrist: A 2 cm soft mass is noted on the radial wrist area. - Extremities: Hands are warm to the touch. Const General: alert; No acute distress Eyes Conjunctivae: conjunctivae normal Resp Auscultation: clear to auscultation bilaterally Cardio Rate: regular rate Rhythm: regular rhythm GI Inspection: Yes normal to inspection Extrem General: Yes normal to inspection and No edema Elbow/forearm/wrist images:  1. 3 cm hard rounded mass, no erythema on the left radial wrist area 2. 2 cm soft mass noted on the right wrist area radial Office Procedures Flu Questionnaire Does the patient have a severe egg allergy?: No Does the patient have severe life threatening allergies?: No Does the patient have a fever or illness today?: No Has the patient ever had Guillain-[place] Syndrome?: No Has the patient ever had any past reaction to a flu shot?: No Results AMB Hemoglobin A1c AMB Hemoglobin A1c 5.5 % Last Edit by Haily Salamanca CMA on 08/11/25 16:34 Immunizations Fluarix [id number] (PF) 45 mcg (15 mcg x 3)/0.5 mL IM syringe Performing Provider: Augustin Steward MD [facility] Administered by: Haily Salamanca CMA on 08/11/25 16:34 Dose Route Admin Location Dispensed Lot Number Expiration Date [facility] Bobbin Fixer 0.5 mL IM Left Deltoid 0.5 mL [id number] 03/20/26 [id number] Benefit Mobile VIS Given Date VIS Provided VIS Publication Date 08/11/25 Single Vaccine 24 Eligibility Eligibility Date Funding Source Not [facility] Eligible 08/11/25 Private Results Reviewed Results Reviewed: Laboratory Last Values Hgb A1c (Clinic) 5.5 % (4.0-6.0) 08/11/25 16:30 Coding Level of Care Code Complex visit Add On G2211 Diagnoses History of diabetes mellitus, type II Z86.39 Primary hypertension I10 Hypertension type: primary hypertension Hypercholesterolemia E78.00 Major depressive disorder, recurrent, moderate F33.1 Obesity E66.9 COPD (chronic obstructive pulmonary disease) J44.9 Nicotine dependence, cigarettes, uncomplicated F17.210 DDD (degenerative disc disease), lumbar M51.36 Breast cancer screening by mammogram Z12.31 Mass of left wrist R22.32 Assessment & Plan Assessment & Plan (1) History of diabetes mellitus, type II: Comment: (dx age 28-was on metformin age [age]-[id number] normalized s/p childbirth age 47-no longer on Rx-A1C 5.1 since 2017) Code(s): Z86.39 - Personal history of other endocrine, nutritional and metabolic disease Category: Medical Plan: Decrease the amount of carbohydrate intake, pasta, bread, rice and potatoes are all sugar and that is aside from all the sweet stuff, remember that fruits are good but they are Sweet also. Hemoglobin A1c goal of less than 6.5. Patient is on metformin twice a day 500 mg on tirzepatide at 10 mg once a week (2) Hypertension: Code(s): I10 - Essential (primary) hypertension Category: Medical Qualifiers: Hypertension type: primary hypertension Qualified Code(s): I10 - Essential (primary) hypertension Plan: Continue with blood pressure medication. Decrease salt intake and exercise taking losartan at 100 mg once a day (3) Hypercholesterolemia: Code(s): E78.00 - Pure hypercholesterolemia, unspecified Category: Medical Plan: Avoid fried foods, chicken skin, eggs, butter margarine, pastries and meat. Be it pork or beef they have a lot of cholesterol patient is on atorvastatin 20 mg once a day [place] blood work revealed it was high and was advised to get a repeat blood work. (4) Major depressive disorder, recurrent, moderate: Comment: Stephy Bernard Code(s): F33.1 - Major depressive disorder, recurrent, moderate Category: Medical Plan: Continue with counseling and therapy (5) Obesity: Code(s): E66.9 - Obesity, unspecified Category: Medical Plan: Continuing with Mounjaro, diet and exercise (6) COPD (chronic obstructive pulmonary disease): Code(s): J44.9 - Chronic obstructive pulmonary disease, unspecified Category: Medical Plan: Patient is strongly advised to stop smoking! Continuing with albuterol inhaler as needed (7) Nicotine dependence, cigarettes, uncomplicated: Comment: (onset 15yo, 1ppd x 39yrs, 35+PYH) lung cancer screening program November 2024 Code(s): F17.210 - Nicotine dependence, cigarettes, uncomplicated Category: Medical Plan: Patient is strongly advised to stop smoking! (8) DDD (degenerative disc disease), lumbar: Comment: L4-5 disc bulge with surgery 23 years old Code(s): M51.36 - Other intervertebral disc degeneration, lumbar region Category: Medical (9) Breast cancer screening by mammogram: Code(s): Z12.31 - Encounter for screening mammogram for malignant neoplasm of breast Category: Medical (10) Mass of left wrist: Code(s): R22.32 - Localized swelling, mass and lump, left upper limb Category: Medical Plan Plan Patient was informed and verbally consented to the use of an ambient scribe for clinic note documentation during this visit. 1. Diabetes Mellitus The patient's hemoglobin A1c is well-controlled at 5.5%, meeting the goal of less than 6.5%. Continue current regimen of metformin 500 mg twice a day and tirzepatide (Mounjaro) 10 mg once a week. A prescription for metformin was sent to the patient's new pharmacy. 2. Hypertension Continue losartan 100 mg once a day. A prescription for losartan was sent to the patient's new pharmacy. 3. Hypercholesterolemia April blood work showed high LDL levels. Continue atorvastatin 20 mg once a day. The patient was advised to get repeat blood work to check cholesterol levels. A prescription for the cholesterol medication was sent to the new pharmacy. 4. Generalized Anxiety Disorder Continue with counseling and therapy. A prescription for sertraline was sent to the new pharmacy. 5. Tobacco Use Disorder / Copd The patient was strongly advised to stop smoking. Continue using the albuterol inhaler as needed. 6. Ganglion Cyst, Left Wrist The patient reports the mass on the left wrist is growing and is sometimes painful. An X-ray of the left wrist has been ordered to further evaluate the mass. A surgical consultation will be considered if the cyst continues to grow and cause pain. Discussion Notes I reviewed the patient's recent progress, noting the excellent hemoglobin A1c of 5.5% and the significant 60-pound weight loss, which the patient is pleased with. We will continue the current dose of tirzepatide 10 mg as it is effective for both glycemic control and weight reduction. I explained that the cholesterol from the April labs was high and that a repeat test is necessary, clarifying a miscommunication the patient had with the call center staff. We discussed the growing mass on the patient's left wrist, which I suspect is a tendon cyst. Given that it is growing and causing intermittent pain, I ordered an X-ray and advised that a surgical evaluation may be necessary. We discussed the ENT findings of severe allergies and the potential for allergy shots, noting the significant time commitment required for desensitization therapy. I strongly advised the patient to stop smoking, reinforcing this as a critical step for overall health. I reminded the patient about the need to schedule an overdue mammogram and follow up with an [facility]. Finally, I sent prescriptions for metformin, losartan, atorvastatin, and sertraline to the patient's new pharmacy in [place], [place]. Patient Instructions - It is very important that you stop smoking. - Please get your blood work done to check your cholesterol levels. - Please get an X-ray of your left wrist. - Schedule your yearly mammogram, as you are due for one. - Make an appointment to see your [facility]. - Continue taking your current medications as prescribed, including metformin, tirzepatide (Mounjaro), losartan, atorvastatin, and sertraline. - I have sent your refills to the [facility] pharmacy in [place], [place]. - Follow up with your ear, nose, and throat (ENT) doctor regarding your allergies. - Continue with diet and exercise to help with your weight management. Orders: Orders AMB Hemoglobin A1c Today Z13.9 - Encounter for screening, unspecified Influenza [id number] Immunization Today Z23 - Encounter for immunization XR wrist LT 2V Today R22.32 - Localized swelling, mass and lump, left upper limb Medications: Refilled tirzepatide 10 mg (0.5 mL) subcut QWEEK 2 mL 2RF 4 weeks E11.65 - Type 2 diabetes mellitus with hyperglycemia sertraline (Zoloft) 100 mg PO DAILY 90 tabs 1RF atorvastatin (Lipitor) 20 mg PO DAILY 90 tabs 1RF E78.00 - Pure hypercholesterolemia, unspecified metformin 500 mg PO BIDWMEAL 60 tabs 2RF E11.65 - Type 2 diabetes mellitus with hyperglycemia losartan 100 mg PO DAILY 90 tabs 3RF I10 - Essential (primary) hypertension
[2025-08-11 16:25] VITALS: BP 126/68; PULSE 78; TEMP 36.1; O2SAT 97; BMI 33.1
== END 2025-08-11 17:08 | disposition home or self-care (01) ==
LOC: HO.HMCH 16:22
PROVIDERS: PCP Internal Medicine; Visit Provider Internal Medicine
DX: Z86.39 Personal history of other endocrine, nutritional and metabolic disease (principal); I10 Essential (primary) hypertension; E78.00 Pure hypercholesterolemia, unspecified; F33.1 Major depressive disorder, recurrent, moderate; E66.9 Obesity, unspecified; J44.9 Chronic obstructive pulmonary disease, unspecified; F17.210 Nicotine dependence, cigarettes, uncomplicated; M51.369 Other intervertebral disc degeneration, lumbar region without mention of lumbar back pain or lower extremity pain; Z12.31 Encounter for screening mammogram for malignant neoplasm of breast; R22.32 Localized swelling, mass and lump, left upper limb; Z23 Encounter for immunization; Z13.9 Encounter for screening, unspecified

== ENCOUNTER → 2025-08-11 16:21 | Outpatient (BNVA) | payer BC, SELFPAY | PROVIDERS: PCP Internal Medicine; Visit Provider Internal Medicine | DX: Z12.31 Encounter for screening mammogram for malignant neoplasm of breast (principal); Z23 Encounter for immunization; I10 Essential (primary) hypertension; E78.00 Pure hypercholesterolemia, unspecified; F33.1 Major depressive disorder, recurrent, moderate; E66.9 Obesity, unspecified; J44.9 Chronic obstructive pulmonary disease, unspecified; M51.369 Other intervertebral disc degeneration, lumbar region without mention of lumbar back pain or lower extremity pain; R22.32 Localized swelling, mass and lump, left upper limb; F17.210 Nicotine dependence, cigarettes, uncomplicated; Z68.33 Body mass index [BMI] 33.0-33.9, adult; Z86.39 Personal history of other endocrine, nutritional and metabolic disease | CPT/HCPCS: 83036; 90471; 90656; 96127 ==

== ENCOUNTER 2025-08-12 08:59 | Outpatient (REF) | payer BC, SELFPAY ==
--- NOTE | ~2025-08-12 | XR_ITS ---
EXAMINATION: XR WRIST NAVICULAR LEFT HISTORY: R22.32 - Localized swelling, mass and lump, left upper limb COMPARISON: There are no prior studies available for comparison. FINDINGS: Four views of the left wrist, including a scaphoid view are submitted. Osseous mineralization is normal. There is no fracture or dislocation. The joint spaces are preserved. The soft tissues are unremarkable. XR/XR wrist LT w scaphoid IMPRESSION: Unremarkable examination of the left wrist. Electronically signed by: Thomas Capps MD 08/14/2025 07:33 AM ISREAL PATRICK
[2025-08-12 10:46] LABS: Alanine Aminotransferase 19 U/L (0-31); Albumin Level 4.6 g/dL (3.5-5.0); Alkaline Phosphatase 77 U/L (39-117); Anion Gap 11 (12-20); Aspartate Amino Transferase 18 U/L (5-31); Blood Urea Nitrogen 18 mg/dL (9-16); Calcium 9.5 mg/dL (8.4-10.2); Carbon Dioxide 27 mmol/L (22-29); Chloride 109 mmol/L (96-108); Cholesterol 116 mg/dL (<200); Estimated Glomerular Filt Rate > 60; HDL Cholesterol 42 mg/dL (>40); Potassium 5.0 mmol/L (3.3-5.1); Sodium 142 mmol/L (135-145); Total Protein 7.1 g/dL (6.5-8.0); Triglycerides 71 mg/dL (<150)
== END 2025-08-12 09:00 | disposition home or self-care (01) ==
LOC: HO.LAB 08:59
PROVIDERS: PCP Internal Medicine; Visit Provider Internal Medicine
DX: R22.32 Localized swelling, mass and lump, left upper limb (principal); E78.00 Pure hypercholesterolemia, unspecified; Z13.1 Encounter for screening for diabetes mellitus
CPT/HCPCS: 36415; 73110; 80053; 80061; 83036

== ENCOUNTER → 2025-08-12 09:27 | Outpatient (BNV) | payer BC, SELFPAY | PROVIDERS: PCP Internal Medicine; Visit Provider Radiology Diagnostic Radiology | DX: R22.32 Localized swelling, mass and lump, left upper limb (principal) | CPT/HCPCS: 73110 ==

== ENCOUNTER 2025-09-13 09:03 | Outpatient (REF) | payer BC, SELFPAY ==
[2025-09-13 11:33] LABS: Resp Syncy Virus RNA Qual PCR NEGATIVE (Negative); SARS COV2 PCR INHOUSE NEGATIVE (Negative)
== END 2025-09-13 09:04 | disposition home or self-care (01) ==
LOC: HO.LNP 09:03
PROVIDERS: Physician Assistant Medical; PCP Internal Medicine
DX: Z03.818 Encounter for observation for suspected exposure to other biological agents ruled out (principal)
CPT/HCPCS: 87637

== ENCOUNTER 2025-09-13 09:03 | Outpatient (AMB) | payer BC, SELFPAY ==
--- OUTSIDE RECORDS SUMMARY | 2025-09-13 09:08 | XMS_ITS | Continuity of Care Document ---
Author Organization [place] [facility], Allergy Address 100 [facility] 100 [place] [address] Care Team Providers Care Exhauster Name Role Phone JONNA PLEITEZ Referring Provider Assessment No assessment recorded. Plan of Treatment Reminders Order Date Submit Date Provider Last Modified By Organization Details Last Modified Time Details Appointments Allergy SLIT-new 2025 03:10P [facility] Not available Not available Not available Establis hed- Allergy f-up 6mon 2025 01:15P M WONG ASH PA-C Not available Not available Not available Lab None recorded . Referral None recorded . Procedures None recorded . Surgeries None recorded . Imaging None recorded . Medication Orders None recorded . Patient TargetsNo targets recorded. Patient InstructionsNo instructions recorded. Reason for Referral None Reported. Results Created Date Observation Date Name Description Value Unit Range Abnormal Flag Note LastModifiedBy Organization Detail LastModifiedTime 07/07/20 25 khoa metry testi ng* No observ ation record ed. [email or web address] Not Available 2024 14:53:03 08/12/20 25 07/11/2025 CT, sinus es, w/o contr ast No observ ation record ed. [email or web address] [facility] [address] [facility], [place], [address], 08/16/2025 13:54:33 Result Notes None recorded. Problems Name Problem SNOMED Code Status Onset Date Resolution Date Notes Provider Name and Address Organization Details Recorded Time Sinusitis 99936258 Active 2024 WONG ASH PA-C 100 [facility] 100[place], [place], [address], [facility] - [facility] [place] 10:39:02 Seasonal allergic rhinitis 410349467 Active 2024 WONG ASH PA-C [address] [address], [place], [address], [facility] - [facility] [place] 10:46:38 Allergic rhinitis 91096007 Active 2024 NELLY BLAYNECAREN, [address] [address], [place], [address], [facility] - [facility] [place] 15:24:26 Nasal congestion 16367057 Active 2024 WONG ASH PA-C [address] [place] [address], [place], [address], [facility] - [facility] [place] 10:47:43 Deviated nasal septum 566573193 Active 2024 WONG ASH PA-C [address] [place] [address], [place], [address], [facility] - [facility] [place] 10:47:57 Seasonal allergy 187104821 Active 2024 NELLY CISNEROSCAREN, [address] [address], [place], [address], [facility] - [facility] [place] 14:31:55 Non-allergi c rhinitis 374333150745 Active 2024 NELLY REGULO, [address] [address], [place], [address], [facility] - [facility] [place] 15:23:33 Problem Notes None recorded. Procedures Surgical History Date Name Laterality Status Provider Name and Address Organization Details Recorded Time 08/04/20 25 Allergy Testing-Full completed NELLY REGULO, [address] [address], [place], [address], [facility] - [facility] [place] 08/04/2025 15:17:39 07/07/20 25 Allergy Testing Modified- Quantitative Testing (MQT) Only completed NELLY SIGALA, [address] [place],[facility] 100, [place], [address], [facility] - [facility] 07/07/2025 15:49:05 05/26/20 25 NasalEndoscopy_D P completed WONG ASH PA-C [address] [facility] [address],[facility] 100, [place], [address], [facility] - [facility] 05/26/2025 10:51:32 Imaging Results None recorded. Procedure Notes None recorded. Medical Equipment None Reported. Allergies No known drug allergies Medications Name Sig Start Date Stop Date Status Note LastModified by Organization Details LastModified Time metformin 500 mg tablet TAKE 1 TABLET (500 MG) BY MOUTH TWICE DAILY WITH MEALS active Not Available Not Available No t Available doxycycline hyclate 100 mg capsule TAKE ONE CAPSULE BY MOUTH TWICE A DAY FOR 7 DAYS 07/08 completed Not Available Not Available Not Available atorvastati n 20 mg tablet TAKE ONE TABLET BY MOUTH EVERY DAY active Not Available Not Available No t Available azithromyci n 250 mg tablet TAKE 2 TABLETS TODAY DAY 1) THEN TAKE 1 TABLET FOR 4 DAYS DAYS2-5) 07/08 completed Not Available Not Available Not Available benzonatate 200 mg capsule TAKE 1 CAPSULE BY MOUTH 3 TIMES A DAY NEEDED FOIR COUGH 08/21 completed Not Available Not Available Not Available prednisone 20 mg tablet TAKE 2 TABLETS BY MOUTH DAILY 08/21 completed Not Available Not Available Not Available sertraline 100 mg tablet TAKE ONE TABLET BY MOUTH EVERY DAY active Not Available Not Available No t Available sulfamethox azole 800 mg-trimetho prim 160 mg tablet TAKE ONE TABLET BY MOUTH TWICE A DAY 07/08 completed Not Available Not Available Not Available tramadol 50 mg tablet TAKE ONE TABLET BY MOUTH TWICE A DAY NEEDED FOR PAIN active Not Available Not Available No t Available folic acid 1 mg tablet TAKE ONE TABLET BY MOUTH EVERY DAY active Not Available Not Available No t Available montelukast 10 mg tablet Take 1 tablet every day by oral route. 2024 active Not Available Not Available Not Avai lable epinephrine 0.3 mg/0.3 mL injection, auto-inject or Take 1 auto by injection route as directed. 2024 active Not Available Not Available Not Avai lable albuterol sulfate HFA 90 mcg/actuati on aerosol inhaler TAKE 2 PUFFS EVERY 6 HOURS NEEDED FOR WHEEZING OR SHORTNESS OF BREATH active Not Available Not Available No t Available losartan 100 mg tablet TAKE ONE TABLET BY MOUTH EVERY DAY active Not Available Not Available No t Available amoxicillin 875 mg-ashleyjerryu m clavulanate 125 mg tablet TAKE 1 TABLET BY MOUTH EVERY 12 HOURS 07/08 completed Not Available Not Available Not Available Zoloft 08/21 completed Not Available Not Available Not Available losartan 08/21 completed Not Available Not Available Not Available metformin 08/21 completed Not Available Not Available Not Available Flonase Allergy Relief 50 mcg/actuati on nasal spray,suspe nsion [place] 1 spray every day by intranasa l route. active Not Available Not Available No t Available Mounjaro 7.5 mg/0.5 mL subcutaneou s pen injector INJECT CONTENTS OF 1 PEN UNDER THE SKIN ONCE WEEKLY 08/21 completed Not Available Not Available Not Available Mounjaro 5 mg/0.5 mL subcutaneou s pen injector INJECT 5MG SUBCUTANE OUSLY EVERY WEEK FOR 4 WEEKS 08/21 completed Not Available Not Available Not Available Mounjaro 10 mg/0.5 mL subcutaneou s pen injector INJECT 10MG SUBCUTANE OUSLY EVERY WEEK active Not Available Not Available No t Available losartan 10 mg/mL oral suspension Take 5 mL every day by oral route. 07/03 completed Not Available Not Available Not Available Vitals Date Recorded Body height Oxygen saturation Heart rate Body mass index (BMI) Body weight Systolic And Diastolic Provider Name and Address Organization Details Last Updated DateTime 5 165.1 cm 97 % 87 /min 33.4 kg/m2 45737.0 7 g 114/74 mm[Hg] NELLY RAJPUT, [facility] 100 [facility],[address] [address], [place], [address], [place] - [facility] 14:57:38 Social History Question Answer Notes LastModified by Organizat ion Details LastModified Time Tobacco Smoking Status Current Every Day Smoker NELLY RAJPUT, [facility] 100 [facility],[address] [address], [place], [address], [facility] - [facility] 07/07/2025 14:31:12 How Much Tobacco Do You Smoke? 1 PPD Information not available 07/07/2025 How Many Years Have You Smoked Tobacco? 40 Information not available 07/07/2025 Sex: Unknown Functional Status None recorded. Mental Status None recorded. Family History Nothing Reported. Medical History No medical history recorded. Gynecological HistoryNo gynecological history recorded. Obstetrics History GPAL:G 0 P 0 0 0 0 Past Encounters Encounter ID Performer Location Encounter Start Date Encounter Closed Date Diagnosis/Indication Diagnosis SNOMED-CT Code Diagnosis ICD10 Code Diagnosis IMO Codes Diagnosis Note [id number] NELLY SIGALA, R[facility] All[facility] [place] 100 [place] [address] 07/07/2025 14:18:08 07/07/2025 15:54:18 Seasonal allergy 277206281 J30.2 45059 [id number] NELLY SIGALA, RMA Allergy [facility] [place] 100 [place] [address] 08/04/2025 14:38:13 08/04/2025 15:18:05 Seasonal allergic rhinitis 521854664 J30.2 [id number] Health Concerns Section Related Observation LastModified by Organization Detai ls LastModified Time None Recorded Concern Status LastModified by Organization Details LastModified Time None Recorded Payers Encounter Date Sequence Insurance Name Policy Number Policy Ham Covered Member ID Ham Member ID Guarantor Name 08/04/2025 1 [facility] [id number] Konrad Regalado [id number] Judith Regalado OBGyn Episode No OBEpisode recorded.
--- OUTSIDE RECORDS SUMMARY | 2025-09-13 09:08 | XMS_ITS | Data Portability ---
Author Organization [place] - [facility], Allergy Address [address] [place] [address] Care Team Providers Care Globe Mounter Name Role Phone RAYMONNATALY JONNA Referring Provider Assessment Encounter Date Assessment Date Assessment LastModified by Organization Details LastModified Time 05/26/2025 05/26/2025 55-year-old female presents for evaluation of persistent sinus pressure. Nasal endoscopy was performed and revealed blue and boggy turbinates. No nasal polyps were visualized. Slight septum deviation to the left. Likely her recurrent rhinitis and sinus infections are related to seasonal allergy. Would recommend allergy testing for further evaluation. Would also recommend CT scan of the sinus to rule out structural abnormality. Recommended to continue daily use of Fluticasone nasal spray, and starting use of a daily antihistamine in the mean time. Follow up scheduled for 6-8 weeks. lex Not available 05/26/2025 10:52:35 08/21/2025 08/21/2025 55-year-old female presents for reevaluation. Results of allergy testing reviewed in detail. Reviewed she may be a good candidate for immunotherapy. She cannot make time commitment for allergy shots but is interested in trialing allergy drops. She may continue her Flonase and refill of montelukast with sent to pharmacy. Will schedule teaching appointment with allergy department and EpiPen was sent to pharmacy. Will follow-up in 6 months for reevaluation. All questions were answered. lex Not available 08/21/2025 13:40:33 Plan of Treatment Reminders Order Date Submit Date Provider Last Modified By Organization Details Last Modified Time Details Appointments Allergy SLIT-new 2025 03:10P [facility] Not available Not available Not available Establish ed- Allergy f-up 6mon 2025 01:15P M WONG ASH PA-C Not available Not available Not available Lab None recorded. Referral None recorded. Procedures allergy testing, skin prick (PROC) 2024 025 [email or web address] Not available 06/21/2025 11:48:41 intraderm al allergy skin testing (PROC) 2024 025 [email or web address] 32 Not available 06/21/2025 11:48:41 pulmonary function test procedure (PROC) 2024 025 [email or web address] 32 Not available 06/21/2025 11:48:41 pulse oximetry (PROC) 2024 025 [email or web address] 32 Not available 06/21/2025 11:48:42 Surgeries None recorded. Imaging CT, sinuses, w/o contrast 2024 [email or web address] Not available 06/12/2025 12:28:[address] 10 mg tablet 2024 [id number], [address] [place], [address], 08/21/2025 13:41:13 epinephri ne 0.3 mg/0.3 mL injection , auto-inje ctor 2024 [facility][id number], [address] [place], [address], 08/21/2025 13:41:29 Patient TargetsNo targets recorded. Patient Instructions Encounter Date Encounter Id Patient Instructions Last Modified By Organization Details Last Modified Time 07/07/2025 [id number] spirometry testing* [email or web address] Not available 07/10/2025 15:37:48 08/21/2025 [id number] sublingual immunotherapy regimen* [email or web address] Not available 09/01/2025 10:20:42 Reason for Referral None Reported. Results Created Date Observation Date Name Description Value Unit Range Abnormal Flag Note LastModifiedBy Organization Detail LastModifiedTime 07/07/20 25 khoa metry testi ng* No observ ation record ed. [email or web address] Not Available 2024 14:53:03 08/12/20 25 07/11/2025 CT, sinus es, w/o contr ast No observ ation record ed. [facility] [address], [place], [address], 08/16/2025 13:54:33 Result Notes None recorded. Problems Name Problem SNOMED Code Status Onset Date Resolution Date Notes Provider Name and Address Organization Details Recorded Time Sinusitis 00833639 Active 2024 WONG ASH PA-C [address], [place], [address], [facility] - [facility] 10:39:02 Seasonal allergic rhinitis 318701032 Active 2024 WONG ASH PA-C [address], [place], [address], [facility] - [facility] 10:46:38 Allergic rhinitis 51513079 Active 2024 [facility], [facility] [address], [place], [address], [facility] - [facility] 15:24:26 Nasal congestion 60221244 Active 2024 WONG ASH PA-C [address], [place], [address], [facility] - [facility] 10:47:43 Deviated nasal septum 310046721 Active 2024 WONG ASH PA-C [address], [place], [address], [facility] - [facility] [place] 10:47:57 Seasonal allergy 280245619 Active [address] [facility], A [address], [place], [address], [facility] - [facility] 14:31:55 Non-allergi c rhinitis 506451057843 Active 2024 [facility], [facility] 100 [facility],[address] [address], [place], [address], [facility] 15:23:33 Problem Notes None recorded. Procedures Surgical History Date Name Laterality Status Provider Name and Address Organization Details Recorded Time 08/04/20 Allergy Testing-Full completed [facility] 100 [facility],[address], [address], [facility] 08/04/2025 15:17:39 07/07/20 Allergy Testing Modified- Quantitative Testing (MQT) Only completed [facility] 100 [facility],[address] [address], [place], [address], [facility] 07/07/2025 15:49:05 05/26/20 NasalEndoscopy_D P completed WONG ASH PA-C 100 [facility],[address], [address], [facility] 05/26/2025 10:51:32 Imaging Results None recorded. [...] Not Available No t Available amoxicillin 875 mg-potassiu m clavulanate 125 mg tablet TAKE 1 TABLET BY MOUTH EVERY 12 HOURS 07/08 completed Not Available Not Available Not Available Zoloft 08/21 completed Not Available Not Available Not Available losartan 08/21 completed Not Available Not Available Not Available metformin 08/21 completed Not Available Not Available Not Available Flonase Allergy Relief 50 mcg/actuati on nasal spray,suspe nsion [place] 1 spray every day by intranasa l [...] Not Available Vitals Date Recorded Body height Body mass index (BMI) Body weight Provider Name and Address Organization Details Last Updated DateTime 05/26/2025 165.1 cm 34.9 kg/m2 03019.4 g Erika Mcknightbrittny [place] - [facility] 05/26/2025 09:59:08 Date Recorded Body height Oxygen saturation Heart rate Body mass index (BMI) Body weight Systolic And Diastolic Provider Name and Address Organization Details Last Updated DateTime 165.1 cm 98 % 75 /min 33.4 kg/m2 82384.0 7 g 107/70 mm[Hg] NELLY REGULO, [facility] 100 [facility],[address] [address], [place], [address], [facility] 14:29:25 Date Recorded Body height Oxygen saturation Heart rate Body mass index (BMI) Body weight Systolic And Diastolic Provider Name and Address Organization Details Last Updated DateTime 165.1 cm 97 % 87 /min 33.4 kg/m2 24436.0 7 g 114/74 mm[Hg] NELLY BLAYNEON LICENSE OF [facility], [address],[place] [address], [place], [address], [facility] 14:57:38 Social History Question Answer Notes LastModified by Organizat ion Details LastModified Time Tobacco Smoking Status Current Every Day Smoker NELLY BLAYNE[address], [address], [facility] 07/07/2025 14:31:12 How Much Tobacco Do [...] ICD10 Code Diagnosis IMO Codes Diagnosis Note [id number] WONG ASH PA-C [facility] [address] [address] 05/26/2025 09:51:23 05/26/2025 10:29:07 Allergic rhinitis 75581357 J30.9 2965580 Nasal congestion 3488218 0 R09.81 32369 Deviated nasal septum [id number] [facility], A Allergy 100 [facility],[address] [place] [address] 07/07/2025 14:18:08 07/07/2025 15:54:18 Seasonal allergy 079761033 J30.[id number] [facility] OF [facility], A Allergy 100 [facility],[address] [facility] [address] 08/04/2025 14:38:13 08/04/2025 15:18:05 Seasonal allergic rhinitis 157183373 J30.2 9136859398 [id number] WONG ASH PA-C [facility] 100 [place] [address] 08/21/2025 12:49:39 08/21/2025 13:38:33 Seasonal allergic rhinitis 090123981 J30.2 0508598335 Sinusitis 81973114 J30.9 2031085 Nasal congestion 2807053 0 R09.81 82919 Allergic rhinitis 648024 04 J30.9 Health Concerns Section Related Observation LastModified by Organization Detai ls LastModified Time None Recorded Concern Status LastModified by Organization Details LastModified Time None Recorded Advance Directives Directive None Recorded Payers Insurance Date Sequence Insurance Name Policy Number Policy Ham Covered Member ID Ham Member ID Guarantor Name 09/08/2025 1 [facility] [id number] Konrad Regalado [id number] Judith Regalado Notes Date Note Type Note Provider Name and Address Organization Details Recorded Time 05/26/2025 text/html ROS as noted in the HPI 55-year-old female presents for evaluation of persistent sinus pressure. She states she has had lifelong sinus issues, however 2 years ago her symptoms have worsened. She complains of worsening sinus pain, sinus pressure, nasal congestion, postnasal drip, headaches and right ear pain. She states she has been on 5 rounds of antibiotics in the last year with no improvement. One month ago, she had a Sinus Xray and states there were polyps in the left sinuses. These are not available for my review today. She has been using Flonase daily and states she has had minimal improvement of symptoms. Allergy testing was done about 20 years ago and was positive for pollen and mold. 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 WONG ASH PA-C 100 [facility],[address], [address], [facility] 05/26/2025 10:54:45 07/07/2025 text/html Pt presents for Allergy testing. MQT only done due to poor pfts despite bronchodilator and peak flow of 275. Per Dr. Pineda send montelukast as well and have her return at least two weeks out to finish IDT part of test NELLY SIGALA Maggi [facility] [place] [address] [address], [place], [address], [facility] 07/07/2025 15:54:11 08/21/2025 text/html ROS as noted in the HPI 55-year-old female presents for allergy review. She had CT scan of the sinus which showed no sinus disease. Allergy testing showed mold and seasonal weeds. Most symptomatic in the fall. Currently taking Flonase and montelukast with good effect. SANDRA SANFORD MD [address] [facility] [place],[facility], [place], [address], [facility] 08/21/2025 17:00:43 OBGyn Episode No OBEpisode recorded.
--- OUTSIDE RECORDS SUMMARY | 2025-09-13 09:08 | XMS_ITS | Continuity of Care Document ---
Author Organization [place] - [facility], Allergy Address [address] [address] Care Team Providers Care Stucco Applicator Name Role Phone JONNA PLEITEZ Referring Provider [...] recorded . Patient TargetsNo targets recorded. Patient Instructions Encounter Date Encounter Id Patient Instructions Last Modified By Organization Details Last Modified Time 07/07/2025 [id number] spirometry testing* [email or web address] Not available 07/10/2025 15:37:48 Reason for Referral None Reported. Results Created Date Observation Date Name Description Value Unit Range Abnormal Flag Note LastModifiedBy Organization Detail LastModifiedTime 07/07/20 25 khoa metry testi ng* No observ ation record ed. [email or web address] Not Available 2024 14:53:03 08/12/20 25 07/11/2025 CT, sinus es, w/o contr ast No observ ation record ed. wanda [facility] [address] [facility] [address], [place], [address], 08/16/2025 13:54:33 Result Notes None recorded. Problems Name Problem SNOMED Code Status Onset Date Resolution Date Notes Provider Name and Address Organization Details Recorded Time Sinusitis 13012717 Active 2024 WONG ASH PA-C [address] [facility], [place], [address], [facility] - [facility] 10:39:02 Seasonal allergic rhinitis 886322763 Active 2024 WONG ASH PA-C 100 [facility],[address], [place], [address], [facility] - [facility] [place] 10:46:38 Allergic rhinitis 99719328 Active 2024 NELLY REGULO, [facility] 100 [facility], [place], [address], [facility] - [facility] 15:24:26 Nasal congestion 94794354 Active 2024 WONG ASH PA-C 100 [facility],[address], [place], [address], [facility] - [facility] 10:47:43 Deviated nasal septum 152922336 Active 2024 WONG ASH PA-C 100 [facility],[address], [place], [address], [facility] - [facility] 10:47:57 Seasonal allergy 554593921 Active 2024 NELLY RAJPUT, [facility] 100 [facility], [place], [address], [facility] - [facility] 14:31:55 Non-allergi c rhinitis 917033600681 Active 2024 NELLY RAJPUT, [facility] 100 [facility], [place], [address], [facility] - [facility] 15:23:33 Problem Notes None recorded. Procedures Surgical History Date Name Laterality Status Provider Name and Address Organization Details Recorded Time 08/04/20 Allergy Testing-Full completed NELLY BLAYNECAREN, A 100 [facility] [address], [place], [address], [facility] - [facility] 08/04/2025 15:17:39 07/07/20 25 Allergy Testing Modified- Quantitative Testing (MQT) Only completed NELLY REGULOBear, MARISELA 100 [facility] 100, [place], [address], [facility] 07/07/2025 15:49:05 05/26/20 25 NasalEndoscopy_D P completed WONG ASH PA-C 100 [facility] 100, [place], [address], [facility] 05/26/2025 10:51:32 Imaging Results None recorded. [...] Relief 50 mcg/actuati on nasal spray,suspe nsion [place] 1 spray every day by intranasa l [...] Details Last Updated DateTime 5 165.1 cm 98 % 75 /min 33.4 kg/m2 55826.0 7 g 107/70 mm[Hg] [facility], [address], [address] [place], [place] - [facility] 5 14:29:25 Social History Question Answer Notes LastModified by Organizat ion Details LastModified Time Tobacco Smoking Status Current Every Day Smoker MARISELA PALACIOS 100 [facility],[facility] 100, [place], [address], [facility] 07/07/2025 14:31:12 How Much Tobacco Do You Smoke? 1 PPD [email or web address] Information not available 07/07/2025 How Many Years Have You Smoked Tobacco? 40 [email or web address] Information not available 07/07/2025 Sex: Unknown Functional Status None recorded. Mental Status None recorded. Family History Nothing Reported. Medical History No medical history recorded. Gynecological HistoryNo gynecological history recorded. Obstetrics History GPAL:G 0 P 0 0 0 0 Past Encounters Encounter ID Performer Location Encounter Start Date Encounter Closed Date Diagnosis/Indication Diagnosis SNOMED-CT Code Diagnosis ICD10 Code Diagnosis IMO Codes Diagnosis Note [id number] MARISELA PALACIOS Allergy 100 [facility] [place] [address] 07/07/2025 14:18:08 07/07/2025 15:54:18 Seasonal allergy 508057068 J30.2 85892 Health Concerns Section Related Observation LastModified by Organization Detai ls LastModified Time None Recorded Concern Status LastModified by Organization Details LastModified Time None Recorded Payers Encounter Date Sequence Insurance Name Policy Number Policy Ham Covered Member ID Ham Member ID Guarantor Name 07/07/2025 1 [employer] [id number] Konrad Regalado [id number] Judith Regalado Notes Date Note Type Note Provider Name and Address Organization Details Recorded Time 07/07/2025 text/html Pt presents for Allergy testing. MQT only done due to poor pfts despite bronchodilator and peak flow of 275. Per Dr. Pineda send montelukast as well and have her return at least two weeks out to finish IDT part of test MARISELA PALACIOS 100 [facility],[facility] 100, [place], [address], [facility] 07/07/2025 15:54:11 OBGyn Episode No OBEpisode recorded.
--- OUTSIDE RECORDS SUMMARY | 2025-09-13 09:08 | XMS_ITS | Continuity of Care Document ---
Author Organization [place] - [facility], [facility] Address [address] [place] [address] Care Team Providers Care Medicaid Analyst Name Role Phone JONNA PLEITEZ Referring Provider Assessment Encounter Date Assessment Date Assessment LastModified by Organization Details LastModified Time 08/21/2025 08/21/2025 55-year-old female presents for reevaluation. [...] Allergy SLIT-new 2025 03:10P M [facility] Not available Not available Not available Establish ed- Allergy f-up 6mon 2025 01:15P M WONG ASH PA-C Not available Not available Not available Lab None recorded. Referral None recorded. Procedures None recorded. Surgeries None recorded. Imaging None recorded. Medication Orders monteluka st 10 mg tablet 2024 025 [facility]/Ph[facility]acy #[id number], [address] [place], [address], 08/21/2025 13:41:13 epinephri ne 0.3 mg/0.3 mL injection , auto-inje ctor 2024 025 [facility]/Pharmacy #[id number], [address] [place], [address], 08/21/2025 13:41:29 Patient TargetsNo targets recorded. Patient Instructions Encounter Date Encounter Id Patient Instructions Last Modified By Organization Details Last Modified Time 08/21/2025 [id number] sublingual immunotherapy regimen* [email or web address] Not available 09/01/2025 10:20:42 Reason for Referral None Reported. Results Created Date Observation Date Name Description Value Unit Range Abnormal Flag Note LastModifiedBy Organization Detail LastModifiedTime 08/12/2007/11/2025 CT, sinus es, w/o contr ast No observ ation record ed. [email or web address] [address], [place], [address], 08/16/2025 13:54:33 Result Notes None recorded. Problems Name Problem SNOMED Code Status Onset Date Resolution Date Notes Provider Name and Address Organization Details Recorded Time Sinusitis 69673588 Active 2024 WONG ASH PA-C 100 [facility],[address], [place], [address], [facility] - [facility] [place] 10:39:02 Seasonal allergic rhinitis 670583085 Active 2024 WONG ASH PA-C 100 [facility],[address] [facility], [place], [address], [facility] - [facility] 5 10:46:38 Allergic rhinitis 53519409 Active 2024 [facility] [place], [place], [address], [facility] - [facility] [place] 5 15:24:26 Nasal congestion 00420612 Active 2024 WONG ASH PA-C 100 [facility],[address], [place], [address], [facility] - [facility] [place] 5 10:47:43 Deviated nasal septum 153231802 Active 2024 WONG ASH PA-C 100 [facility] 100, [place], [address], [facility] - [facility] 10:47:57 Seasonal allergy 553250577 Active 2024 NELLY REGULO, [facility] 100 [facility],[address] [address], [place], [address], [facility] 14:31:55 Non-allergi c rhinitis 284925539095 Active 2024 NELLY REGULO, [facility] 100 [facility] 100, [place], [address], [facility] 15:23:33 Problem Notes None recorded. Procedures Surgical History Date Name Laterality Status Provider Name and Address Organization Details Recorded Time 08/04/20 25 Allergy Testing-Full completed [address], [address], [facility] 08/04/2025 15:17:39 07/07/20 25 Allergy Testing Modified- Quantitative Testing (MQT) Only completed [address], [address], [facility] 07/07/2025 15:49:05 05/26/20 25 NasalEndoscopy_D P completed WONG ASH PA-C 100 [facility],[address], [address], [facility] 05/26/2025 10:51:32 Imaging Results None recorded. [...] Relief 50 mcg/actuati on nasal spray,suspe nsion [place] 1 spray every day by intranasa l [...] Not Available Not Available Not Available Vitals None Recorded Social History Question Answer Notes LastModified by Organizat ion Details LastModified Time Tobacco Smoking Status Current Every Day Smoker NELLY SIGALA, [facility] 100 [facility] 100, [place], [address], [facility] - [facility] 07/07/2025 14:31:12 How Much Tobacco Do [...] ICD10 Code Diagnosis IMO Codes Diagnosis Note [id number] NELLY SIGALA, [place] All[facility] 100 [facility], [address] [place] [address] 08/04/2025 14:38:13 08/04/2025 15:18:05 Seasonal allergic rhinitis 814293149 J30.2 [id number] WONG SAH PA-C [facility] [address] [place] [address] 08/21/2025 12:49:39 08/21/2025 13:38:33 Seasonal allergic rhinitis 479442254 J30.2 9057903159 Sinusitis 15899461 J30.9 8195576 Nasal congestion 7202936 0 R09.81 48042 Allergic rhinitis 460479 04 J30.9 Health Concerns Section Related Observation LastModified by Organization Detai ls LastModified Time None Recorded Concern Status LastModified by Organization Details LastModified Time None Recorded Payers Encounter Date Sequence Insurance Name Policy Number Policy Ham Covered Member ID Ham Member ID Guarantor Name 08/21/2025 1 [employer] [id number] Konrad Regalado [id number] Judith Regalado Notes Date Note Type Note Provider Name and Address Organization Details Recorded Time 08/21/2025 text/html ROS as noted in the HPI 55-year-old female presents for allergy review. She had CT scan of the sinus which showed no sinus disease. Allergy testing showed mold and seasonal weeds. Most symptomatic in the fall. Currently taking Flonase and montelukast with good effect. SANDRA SANFORD MD [address] [place] [address], [address], [facility] - [facility] 08/21/2025 17:00:43 OBGyn Episode No OBEpisode recorded.
[2025-09-13 09:12] VITALS: BP 118/66; PULSE 83; TEMP 36.8; O2SAT 96; BMI 32.3
--- NOTE | 2025-09-13 09:12 | AM.OFFWIN_ITS ---
Intake Vital Signs 09/13/25 09:12 Height 5 ft 5 in Weight 194 lb BMI 32.3 BP 118/66 Blood Pressure Location Lt brachial Position Sitting Pulse 83 Pulse Source Pulse Oximeter Temp 98.2 F Temp Source Oral Pulse Oximetry (%) 96 Oxygen Delivery Method Room Air Intake Visit Reasons: EP-sinus issue Intake Note: pt presents with darkened phlegm, post nasal rip, severe pressure to eyes and RT ear triggering her vertigo- pt reports recurrent sinus infections Patient Tobacco Use Status: Current everyday Tobacco user Allergies lisinopril Allergy (Intermediate, Verified 09/13/25 09:13) Rash paroxetine (Paxil) Adverse Reaction (Intermediate, Verified 09/13/25 09:13) weight gain Do you need a note to return to daycare/school/sports/work: No HPI HPI Comments History of Present Illness Details History of Present Illness - The patient is a 55 year old female pr esenting with symptoms of a sinus infection. - The current episode has been ongoing f or three weeks, and she describes it as her typical yearly sinus infection. - Associated symptoms include ear pressu re, headache, facial pain, tooth pain, thick green nasal discharge, chills, a non-productive cough, nausea, and shortness of breath. - She denies any fever. - The patient has a history of recurrent sinus infections, reporting that she required four courses of antibiotics last year. - She has an albuterol inhaler for as-ne eded use, which she has been using for her shortness of breath. - The patient uses Flonase, but reports it currently causes a burning sensation. - She was scheduled to begin sublingual immunotherapy for allergies but has postponed starting the treatment due to her current illness. - Her two children have been home from [facility] with viral illnesses for the past week and a half. - She has been having a cough and some S OB as well. - She denies fever, chills, CP, abd pain , nausea, vomiting, or diarrhea. Physical Exam General: Cooperative, healthy appearing, comfortable, no acute distress and well developed Head: Normal to inspection Ears: Hearing grossly normal bilaterally. No tragus or mastoid tenderness noted. Auditory canals clear bilaterally. TM's normal, not bulging. No fluid noted. Nose: Normal external nose present. Moist mucosa. Turbinates normal bilaterally, not boggy. Face and sinus: Tenderness to palpation of the frontal and maxillary sinuses bilaterally. Neck: Normal visual inspection and Yes full ROM. No lymphadenopathy noted. Respiratory: Normal respiratory effort and able to speak in complete sentences. Clear to auscultation bilaterally. No w/r/r noted. Cardiovascular: Regular rate and rhythm. Normal S1 and S2. No m/r/g noted GI: Normal to inspection. Soft to palpation and nontender, nondistended. No guarding noted. Skin: No rashes or lesions noted [facility] Medical History Hypertension Hypercholesterolemia History of diabetes mellitus, type II Polycystic ovarian syndrome Bronchitis Nicotine dependence, cigarettes, uncomplicated Major depressive disorder, recurrent, moderate Generalized anxiety disorder Migraine Hemorrhoid Constipation Deafness in right ear Tubulovillous adenoma (~2021) Renal stones Vertigo Sciatica, right side DDD (degenerative disc disease), lumbar Post-operative nausea and vomiting Obesity COVID-19 vaccine series completed Surgical History History of colonoscopy History of umbilical hernia repair History of laparoscopic adjustable gastric banding S/P trigger finger release History of back surgery History of ear surgery Family History Paternal Grandfather Myocardial infarct Paternal Uncle Prostate cancer Alcohol abuse Paternal Aunt Skin cancer Maternal Aunt Breast cancer Mother Lung cancer Social History Housing: House Are you a primary healthcare translator to a significant other at home: No Do you presently have visiting nurse or other home services: No Alcohol intake: former Comment: UNSTEADY GAIT Patient Tobacco Use Status: Current everyday Tobacco user Tobacco use type: Cigarette Cigarette Packs Per Day: 1 Cigarettes Per Day: 20.0 Years Smoked: (onset 15yo, 1ppd x 39yrs, 35+PYH) e-Cigarette/Vaping Use: Never Used Second Hand Smoke Exposure: Yes service: No Current occupational status: employed 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 Cognitive needs: No Hearing needs: No Vision needs: Yes Female Reproductive History Menstrual Age of Menarche: 11 Review of Systems Const All systems reviewed & are unremarkable except as noted in HPI and below Physical Exam Vital Signs: Last Vital Signs Temp 98.2 F 09/13/25 09:12 Pulse 83 09/13/25 09:12 BP 118/66 09/13/25 09:12 Pulse Ox 96 09/13/25 09:12 Oxygen Delivery Method Room Air 09/13/25 09:12 BMI result Body Mass Index 32.3 Assessment & Plan Assessment & Plan (1) Sinusitis: Code(s): J32.9 - Chronic sinusitis, unspecified Qualifiers: Sinusitis location: frontal Chronicity: acute Recurrence: recurrent Qualified Code(s): J01.11 - Acute recurrent frontal sinusitis Plan Most likely sinusitis vs URI vs allergies vs viral illness Plan - will order covid/flu/RSV swab to rule out viral illness - steam showers - tylenol or motrin as needed for pain or fever - Augmentin BID for 7 days - prednisone burst for 5 days - continue with flonase daily - follow up with PCP - will call with the results of the resp panel Orders: Orders SARS-CoV2/FLU/RSV Today R09.89 - Other specified symptoms and signs involving the circulatory and respiratory systems Medications: New amoxicillin-pot clavulanate 875-125 mg 1 tab PO Q12H 14 tabs 0RF prednisone 40 mg (2 x 20 mg) PO DAILY 10 tabs 0RF 5 days Coding Level of Care Code Est Pt Level 3 (91475) Diagnoses Acute recurrent frontal sinusitis J01.11 Sinusitis location: frontal Chronicity: acute Recurrence: recurrent
== END 2025-09-13 09:37 | disposition home or self-care (01) ==
PROVIDERS: PCP Internal Medicine; Visit Provider Physician Assistant Medical
DX: J01.11 Acute recurrent frontal sinusitis (principal)